=== PATIENT | male | born 1965 | race African-American/Black ===

== ENCOUNTER 2016-06-04 11:40 | Inpatient (IN) | payer BC ==
[~2016-06-04] VITALS: Ht 165.1 cm; Wt 85.9 kg
[~2016-06-04 11:40] MED LIST: ASCO10003 PO; ASPI81TA28 PO; CLOP1TAB15 PO; COCO1CAP PO; COEN1CAP17 PO; GARL400T4 PO; LPT40 PO; MISC1CAP60 PO; MULT-506 PO; OMEG10002 PO; RHOD300C PO; ST J1CAP PO
[2016-06-04] MEDS ORDERED: NITROGLYCERIN 0.4 MG SL PER TAB CHARGE SL STA (12:10)
--- NOTE | 2016-06-04 12:38 | DIAGNOSTIC IMAGING REPORT ---
SINGLE VIEW CHEST CLINICAL HISTORY: Atypical chest pain. FINDINGS: An AP, portable, upright chest radiograph is compared to study dated 06/18/2015. The examination is degraded by portable technique and patient rotation. The cardiomediastinal silhouette is unremarkable. The lungs and pleural spaces are clear. No pneumothorax is seen. The bony thorax is grossly intact. There is S-shaped thoracolumbar scoliosis. IMPRESSION: No active disease in the chest. Electronically signed by: Vargas Vazquez M.D. 06/04/2016 12:36 PM Dictated Date/Time: 06/04/2016 12:36 PM
[2016-06-04] MEDS ORDERED: NITROGLYCERIN OINT 2% 1GM PACKET ONE (13:04)
[2016-06-04 13:05] LABS: BASO % 0.3 %; BASO ABS # 0.02 K/uL (0-0.2); COMPLETE YES; EOS % 1.4 %; HEMATOCRIT 45.2 % (42-52); IG% 0.1 %; LYMPH % 35.7 %; LYMPH ABS # 2.49 K/uL (1.2-3.4); MEAN CORPUSCULAR HEMOGLOBIN 33.2 pg (25-34); MEAN PLATELET VOLUME 10.4 fL (7.4-10.4); MONO % 6.9 %; NEUT % 55.6 %; PLATELET COUNT 199 K/uL (130-400); RED BLOOD COUNT 4.76 M/uL (4.7-6.1); WHITE BLOOD COUNT 6.98 K/uL (4.8-10.8)
[2016-06-04] MEDS ORDERED: NITROGLYCERIN OINT 2% 1GM PACKET EXT ONE (13:15)
[2016-06-04 13:17] LABS: INR 1.1 (0.9-1.1); PARTIAL THROMBOPLASTIN RATIO 0.8; PROTHROMBIN TIME (PATIENT) 11.7 SECONDS (9.0-12.0)
[2016-06-04 13:20] LABS: BUN/CREATININE RATIO 6.5 (10-20); CALCIUM 9.3 mg/dl (8.5-10.1); CREATININE 1.1 mg/dl (0.60-1.40)
[2016-06-04] MEDS ORDERED: ONDANSETRON INJ 2 MG/ML 2 ML VIAL IV PRN (15:00)
[2016-06-04] MEDS ORDERED: IV FLUIDS COMPLETED PRN (15:30)
[2016-06-04 15:31] VITALS: BP 122/87; PULSE 70; TEMP 37; O2SAT 98; Ht 165.1 cm; Wt 85.9 kg
[2016-06-04] MEDS ORDERED: ENOXAPARIN 40 MG/0.4 ML SYR SC SCH (16:00)
--- NOTE | 2016-06-04 17:29 | Medical Student: [facility] ---
Med Student History & Physical Date & Time of Service: Jun 04, 2016 at 17:20 Chief Complaint: Chest Pain, Elevated Blood Pressure Reading Primary Care Physician: Chaitanya Steele M.D. History of Present Illness Source: patient, hospital records Amilcar Bustamante is a 51 male with a history of GA with RCA stent placement in 2012 in [place], [place], and a STEMI with LAD thrombectomy in February 2015 who presented to the ED after he started having lower L chest pressure radiating to his L AC fossa at around noon today while at rest. He also noticed transient lightheadedness lasting for only a few seconds. The pain continued until he came to the ED, then started improving prior to placement of the NTG paste. The pain was 4.75/10 at its worst and is now at about 2/10. There was no associated nausea, diaphoresis, dyspnea, or palpitations. Prior to the onset of the pain he had just woken up and taken his BP, which he noted was slightly higher than normal at 138/94. He then retook his BP and it had slightly increased, so he decided to come to the ED. He had not had any recent chest pain prior to today, and no orthopnea or leg swelling. He lives a very active lifestyle and swam half a mile yesterday with no chest pain. He denies reflux or abdominal pain, but feels as if he needs to belch but can't get it out. He takes his BP multiple times per day and is usually in the 110s-130s/70-90s. He is not currently on any antihypertensives. 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 He watches his diet very closely and in fact switched to a vegan diet a few weeks ago. In addition he lifts weights, does yoga, and swims often, and has not had any chest pain, increased dyspnea, or palpitations. He takes supplements for weight lifting, which include Tribulus terrestris, vitamins, and glutamine. He denies any history of Diabetes. He notes he had a cough and myalgias about two weeks ago, which resolved. Past Medical/Surgical History Echocardiogram from February 2015: * 1. Normal left ventricular size, thickness, and systolic function. LVEF 60%. 2. No significant valvular regurgitation or stenosis. Family History No family history of heart disease. Social History Smoking Status: Former Smoker (Smoked 2 dark and milds per day for 2 years. ) Drug Use: none Occupational Status: employed Allergies Coded Allergies: Prasugrel (Unverified Allergy, Severe, skin blistering and peeling with burning and itching, 06/04/16) Medications Aspirin (Aspirin Ec), 81 MG PO DAILY Clopidogrel (Plavix), 75 MG PO DAILY Review of Systems Constitutional: No chills, No fever Respiratory: + cough (2 weeks ago, resolved), No dyspnea on exertion, No shortness of breath Cardiovascular: + chest pain, No PND, No claudication, No edema, No orthopnea, No palpitations Abdomen: No constipation, No diarrhea, No nausea, No pain, No vomiting Musculoskeletal: No calf pain, No muscle pain, No swelling Endocrine: No fatigue Physical Exam Vital Signs (24 Hours) Date Time Temp Pulse Resp B/P Pulse Ox O2 Delivery O2 Flow Rate FiO2 06/04/16 15:31 37.0 70 14 122/87 98 Room Air 06/04/16 15:01 36.6 62 16 140/98 98 06/04/16 14:22 62 16 140/98 06/04/16 13:54 63 138/87 06/04/16 13:40 57 18 136/96 06/04/16 13:02 65 12 145/96 98 Room Air 06/04/16 12:48 66 06/04/16 12:14 67 18 142/107 06/04/16 12:12 98 Room Air 06/04/16 12:08 98 Room Air 06/04/16 11:45 98 Room Air 06/04/16 11:42 36.6 74 18 166/101 98 Room Air General Appearance: WD/WN, no apparent distress, + pertinent finding (Pt sitting comfortably in bed. ) Head: normocephalic, atraumatic Eyes: normal inspection, PERRL, sclerae normal ENT: hearing grossly normal, pharynx normal Neck: supple, no adenopathy, no JVD, no carotid bruits, trachea midline Respiratory/Chest: chest non-tender, lungs clear, normal breath sounds, no respiratory distress, no accessory muscle use, + pertinent finding (NTG patch in place. 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, no motor/sensory deficits, alert, normal mood/affect, normal reflexes, oriented x 3 Skin: normal color, warm/dry, no rash Lymphatic: no adenopathy Diagnostics Laboratory Results Results Past 24 Hours Test 06/04/16 12:50 06/04/16 12:59 Range/Units White Blood Count 6.98 4.8-10.8 K/uL Red Blood Count 4.76 4.7-6.1 M/uL Hemoglobin 15.8 14.0-18.0 g/dL Hematocrit 45.2 42-52 % Mean Corpuscular Volume 95.0 80-100 fL Mean Corpuscular Hemoglobin 33.2 25-34 pg Mean Corpuscular Hemoglobin Concent 35.0 32-36 g/dl Platelet Count 199 130-400 K/uL Mean Platelet Volume 10.4 7.4-10.4 fL Neutrophils (%) (Auto) 55.6 % Lymphocytes (%) (Auto) 35.7 % Monocytes (%) (Auto) 6.9 % Eosinophils (%) (Auto) 1.4 % Basophils (%) (Auto) 0.3 % Neutrophils # (Auto) 3.88 1.4-6.5 K/uL Lymphocytes # (Auto) 2.49 1.2-3.4 K/uL Monocytes # (Auto) 0.48 0.11-0.59 K/uL Eosinophils # (Auto) 0.10 0-0.5 K/uL Basophils # (Auto) 0.02 0-0.2 K/uL RDW Standard Deviation 45.7 36.4-46.3 fL RDW Coefficient of Variation 13.2 11.5-14.5 % Immature Granulocyte % (Auto) 0.1 % Immature Granulocyte # (Auto) 0.01 0.00-0.02 K/uL Prothrombin Time 11.7 9.0-12.0 SECONDS Prothromb Time International Ratio 1.1 0.9-1.1 Activated Partial Thromboplast Time 21.7 21.0-31.0 SECONDS Partial Thromboplastin Ratio 0.8 Sodium Level 142 136-145 mmol/L Potassium Level 4.0 3.5-5.1 mmol/L Chloride Level 106 98-107 mmol/L Carbon Dioxide Level 25 21-32 mmol/L Anion Gap 11.0 3-11 mmol/L Blood Urea Nitrogen 7 7-18 mg/dl Creatinine 1.10 0.60-1.40 mg/dl Est Creatinine Clear Calc Drug Dose 81.0 ml/min Estimated GFR () 90.9 Estimated GFR (Non- 78.4 BUN/Creatinine Ratio 6.5 10-20 Random Glucose 81 70-99 mg/dl Calcium Level 9.3 8.5-10.1 mg/dl Bedside Troponin I 0.020 0-0.045 ng/ml Diagnostic Radiology SINGLE VIEW CHEST CLINICAL HISTORY: Atypical chest pain. FINDINGS: An AP, portable, upright chest radiograph is compared to study dated 06/18/2015. The examination is degraded by portable technique and patient rotation. The cardiomediastinal silhouette is unremarkable. The lungs and pleural spaces are clear. No pneumothorax is seen. The bony thorax is grossly intact. There is S-shaped thoracolumbar scoliosis. IMPRESSION: No active disease in the chest. EKG Normal sinus rhythm at 71 bpm. Less than [address] elevation in inferior leads with flipped T wave in III and aVF, but no reciprocal changes. No STEMI or Q waves. Normal RI interval with no ectopy. Normal QRS axis and duration. No hypertrophy. Impression Assessment and Plan Pt is a 51 year old male with a history of 2 MIs and an RCA stent who presents with atypical chest pain. EKG shows no evidence of acute STEMI. Initial troponin is negative. VS have been stable, although BP has been slightly elevated here - 140-160s/90-100s, likely secondary to anxiety. CXR shows no acute process. CMP and CBC unremarkable. Differential diagnosis includes ACS, GERD, costochondritis, anxiety secondary to elevated BP. - Will obtain repeat EKG now as well as in the morning. Repeat EKG if he has recurrent pain. - Will continue to trend troponin overnight. If any are positive, will plan for Cardiology consult and likely catheterization. - Will consult cardiology in the morning regardless given the pt's history of stent placement. - NTG SL and morphine prn for pain. - Will continue 2 L O2 NC. - Discussed the importance of taking his statin for plaque stabilization. Will start atorvastatin here. - Pt had ASA and Plavix today, which will be continued daily. - Given that the pt's BP is usually well controlled at baseline and his HR is in the 50-60s at baseline, will not give SHELBY-inhibitor or beta sriram at this time. - Suspicion for cardiac etiology of his pain is low, so will hold heparin at this time. Level of Care Telemetry Advanced Directives Existing Advance Directive: No Existing Living Will: No Existing Power of Labor Delivery Rn: No
--- NOTE | 2016-06-04 17:46 | History and Physical ---
History & Physical Date & Time of Service: Jun 04, 2016 at 17:22 Chief Complaint: Chest Pain, Elevated Blood Pressure Reading Primary Care Physician: Chaitanya Steele M.D. History of Present Illness Source: patient, family, hospital records 51 yo male with a history of CAD with STEMI in the past requiring a LAD thrombectomy in February 2015. Also with a history of BENITEZ to the RCA and in stent thrombosis while on Plavix. Has a history of poor compliance. Presented to the ED today c/o 5 out of 10 substernal chest pain as well as pain in left arm. No associated nausea, diaphoresis, shortness of breath. He did admit to some momentary light headedness but that quickly resolved. The patient woke up without any chest pain. He took his blood pressure like he always does every morning and found that it was high for him at 139/95. He waited a short while and retook the BP and found that it was higher with systolic pressures in the 140's and diastolic 98. After his BP failed to improve he started to experience a substernal pressure similar to pain he had when he had his AL. He says he has been compliant with his Plavix but had not been taking aspirin for a few days, so he took an aspirin when he had the chest pain. He has not been taking his statin for 2 months when prescription ran out. Also, he has not seen Dr. Steele in some time. In the past he took metoprolol and lisinopril for BP control but stopped those on his own. Overall the patient takes excellent care of himself. He lifts weights and swims , in fact he just swam 1/2 a mile yesterday without any chest pain or pressure. He has changed his diet to vegan and follows a strict regimen. In the ED he received a Nitro patch and chest pain nearly resolved. EKG showed sinus rhythm, evidence of prior infarct, there was 1mm of ST elevation in the inferior leads, specifically lead III and some non-specific ST and TW changes in anterior leads. Past Medical/Surgical History Medical Problems: (1) Chest pain Status: Resolved (2) Dehydration Status: Resolved (3) Elevated troponin Status: Resolved (4) Gastric reflux Status: Resolved (5) Hypertension Status: Chronic (6) AL (myocardial infarction) Status: Resolved (7) STEMI (ST elevation myocardial infarction) Status: Resolved Surgical Problems: (1) H/O vasectomy Status: Chronic (2) History of heart artery stent Status: Chronic Family History no family history of CAD Social History Smoking Status: Former Smoker Drug Use: none Marital Status: single Occupational Status: employed Multi-Drug Resistant Organisms History of MDRO: No Allergies Coded Allergies: Prasugrel (Unverified Allergy, Severe, skin blistering and peeling with burning and itching, 06/04/16) Home Medications Scheduled Aspirin (Aspirin Ec), 81 MG PO DAILY Clopidogrel (Plavix), 75 MG PO DAILY Review of Systems Constitutional: No chills, No fatigue, No fever, No problem reported, No sweats , No weakness, No weight loss Eyes: No diplopia, No discharge, No eye pain, No problem reported, No redness, No worsening of vision ENT: No dental problems, No hearing loss, No nasal symptoms, No problem reported, No sore throat, No tinnitus, No trouble swallowing, No unusual epistaxis Respiratory: No cough, No dyspnea at rest, No dyspnea on exertion, No hemoptysis, No problem reported, No shortness of breath, No sputum, No wheezing Cardiovascular: + chest pain, No PND, No claudication, No edema, No orthopnea, No palpitations Abdomen: No GI bleeding, No constipation, No diarrhea, No nausea, No pain, No problem reported, No vomiting Musculoskeletal: No calf pain, No joint pain, No muscle pain, No problem reported, No swelling Genitourinary - Male: No dysuria, No hematuria, No urinary frequency, No urinary urgency Neurologic: No balance problems, No memory loss, No numbness/tingling, No paralysis, No problem reported, No vertigo, No weakness Psychiatric: No anhedonism, No anxiety, No depression symptoms, No insomnia, No problem reported, No substance abuse Endocrine: No excessive thirst, No excessive urination, No fatigue, No problem reported Hematologic / Lymphatic: No abnormal bleeding/bruising, No clotting problems, No night sweats, No problem reported, No swollen lymph nodes Integumentary: No bleeding, No color change, No itch, No new/changing skin lesions, No problem reported, No rash Allergic / Immunologic: No environmental allergies, No food allergies, No frequent infections, No hives, No pet sensitivities, No poor healing, No problem reported, No prolonged convalescence, No seasonal allergies Physical Exam Vital Signs Date Time Temp Pulse Resp B/P Pulse Ox O2 Delivery O2 Flow Rate FiO2 06/04/16 15:31 37.0 70 14 122/87 98 Room Air 06/04/16 15:01 36.6 62 16 140/98 98 06/04/16 14:22 62 16 140/98 06/04/16 13:54 63 138/87 06/04/16 13:40 57 18 136/96 06/04/16 13:02 65 12 145/96 98 Room Air 06/04/16 12:48 66 06/04/16 12:14 67 18 142/107 06/04/16 12:12 98 Room Air 06/04/16 12:08 98 Room Air 06/04/16 11:45 98 Room Air 06/04/16 11:42 36.6 74 18 166/101 98 Room Air General Appearance: WD/WN, no apparent distress Head: normocephalic, atraumatic Eyes: normal inspection, EOMI, sclerae normal ENT: normal ENT inspection, hearing grossly normal, pharynx normal Neck: supple, no adenopathy, no JVD, trachea midline Respiratory/Chest: chest non-tender, lungs clear, normal breath sounds, no respiratory distress, no accessory muscle use Cardiovascular: regular rate, rhythm, no edema, no gallop, no JVD, no murmur, normal peripheral pulses Abdomen/GI: normal bowel sounds, non tender, soft, no organomegaly Back: normal inspection, no CVA tenderness, no muscle spasm, normal range of motion Extremities/Musculoskelatal: normal inspection, no calf tenderness, normal capillary refill, no pedal edema, normal range of motion 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, no motor/sensory deficits, alert, normal mood/affect, normal reflexes, oriented x 3 Skin: normal color, warm/dry, no rash Lymphatic: no adenopathy Diagnostics Laboratory Results Results Past 24 Hours Test 06/04/16 12:50 06/04/16 12:59 Range/Units White Blood Count 6.98 4.8-10.8 K/uL Red Blood Count 4.76 4.7-6.1 M/uL Hemoglobin 15.8 14.0-18.0 g/dL Hematocrit 45.2 42-52 % Mean Corpuscular Volume 95.0 80-100 fL Mean Corpuscular Hemoglobin 33.2 25-34 pg Mean Corpuscular Hemoglobin Concent 35.0 32-36 g/dl Platelet Count 199 130-400 K/uL Mean Platelet Volume 10.4 7.4-10.4 fL Neutrophils (%) (Auto) 55.6 % Lymphocytes (%) (Auto) 35.7 % Monocytes (%) (Auto) 6.9 % Eosinophils (%) (Auto) 1.4 % Basophils (%) (Auto) 0.3 % Neutrophils # (Auto) 3.88 1.4-6.5 K/uL Lymphocytes # (Auto) 2.49 1.2-3.4 K/uL Monocytes # (Auto) 0.48 0.11-0.59 K/uL Eosinophils # (Auto) 0.10 0-0.5 K/uL Basophils # (Auto) 0.02 0-0.2 K/uL RDW Standard Deviation 45.7 36.4-46.3 fL RDW Coefficient of Variation 13.2 11.5-14.5 % Immature Granulocyte % (Auto) 0.1 % Immature Granulocyte # (Auto) 0.01 0.00-0.02 K/uL Prothrombin Time 11.7 9.0-12.0 SECONDS Prothromb Time International Ratio 1.1 0.9-1.1 Activated Partial Thromboplast Time 21.7 21.0-31.0 SECONDS Partial Thromboplastin Ratio 0.8 Sodium Level 142 136-145 mmol/L Potassium Level 4.0 3.5-5.1 mmol/L Chloride Level 106 98-107 mmol/L Carbon Dioxide Level 25 21-32 mmol/L Anion Gap 11.0 3-11 mmol/L Blood Urea Nitrogen 7 7-18 mg/dl Creatinine 1.10 0.60-1.40 mg/dl Est Creatinine Clear Calc Drug Dose 81.0 ml/min Estimated GFR () 90.9 Estimated GFR (Non- 78.4 BUN/Creatinine Ratio 6.5 10-20 Random Glucose 81 70-99 mg/dl Calcium Level 9.3 8.5-10.1 mg/dl Bedside Troponin I 0.020 0-0.045 ng/ml CXR normal EKG sinus rhythm, 1mm of ST elevation in inferior leads, most predominantly lead III , minimal ST depression in anterior leads Impression Assessment and Plan 51 yo male with significant history of CAD with stent to RCA and thrombectomy to LAD, most recently in 2015, presents with chest pain at rest, sudden onset, now greatly improved - Chest pain: need to rule out ACS at this time, EKG changes are non-specific, could be just a repolarization abnormality in inferior leads chest pain is minimal, says it is a 2 out of 10, just swam 1/2 a mile yesterday without any chest pain continue Nitro patch, use Aspirin, Plavix, restart Lipitor 40mg (he stopped 2 months ago) observe on telemetry, repeat cardiac enzymes, consult cardiology for recommendations of stress test vs heart catheterization - Elevated blood pressure: checks pressures every day, multiple times a day, typically 130/90 in the morning and then lower the rest of the day HR is in 50-60's so probably not a great candidate for beta sriram, especially since it limits his exercise routine but with consistently high diastolic pressures, might be a good idea to start an SHELBY inhibitor, will defer to cardiology Level of Care Telemetry Advanced Directives Existing Advance Directive: No Existing Living Will: No Existing Power of Image Scientist: No Resuscitation Status FULL RESUSCITATION VTE Prophylaxis VTE Risk Assessment Done? Y/N: Yes Risk Level: High Given or contraindicated: Enoxaparin (Lovenox)SQ
[2016-06-04] MEDS: NITROGLYCERIN OINT 2% 1GM PACKET EXT SCH (18:32)
--- NOTE | 2016-06-04 18:33 | EMERGENCY ROOM VISIT NOTE ---
History Report prepared by Andrew: Nely Oliva Under the Supervision of: Dr. Garland Lawrence M.D. First contact with patient: 11:57 Chief Complaint: CHEST PAIN Stated Complaint: CHEST PAINS Nursing Triage Summary: Pt states "I was monitoring my blood pressure closely and it went up." States immediately before coming to ED he began having left sided chest pain 4/10 and "a half second of dizziness". Denies SOB, Diaphoresis. History of Present Illness The patient is a 51 year old male who presents to the Emergency Room with complaints of persistent chest pain that began at 12PM today, about an hour ago. His pain is a 4-5/10 in severity and is described as a pressure. Currently , it is starting to improve. The pain is located in the diaphragm area. Nothing seems to make it better nor worse. The pressure radiates down his left arm. The patient notes that he was slightly dizzy when the pain began. His blood pressure has increased from this morning to the time he arrived to the hospital. The patient does exercise - when he was exercising yesterday he did not have any chest discomfort. The patient has a history of a STEMI in 2014 and his current symptoms feel similar to when he was diagnosed. He had a stent placed at that time. He is on aspirin and Plavix. Denies fever, cold-like symptoms, vomiting, abdominal pain, pain or swelling in his legs, or other complaints. Source of History: patient Onset: 11AM, about an hour ago Position: chest (diaphragm) Symptom Intensity: 4-5/10 Quality: pressure Timing: other (persistent) Associated Symptoms: No abdominal pain, No fevers, No vomiting Note: Other symptoms: slight dizziness Review of Systems See HPI for pertinent positives & negatives. A total of 10 systems reviewed and were otherwise negative. Past Medical & Surgical Medical Problems: (1) Chest pain (2) Dehydration (3) Elevated blood pressure reading (4) Elevated troponin (5) Gastric reflux (6) Hypertension (7) KS (myocardial infarction) (8) STEMI (ST elevation myocardial infarction) Surgical Problems: (1) H/O vasectomy (2) History of heart artery stent Family History Patient reports no known family medical history. Social History Smoking Status: Former Smoker Alcohol Use: occasionally Drug Use: none Marital Status: single Housing Status: lives alone Occupation Status: employed Current/Historical Medications Scheduled Aspirin (Aspirin Ec), 81 MG PO DAILY Clopidogrel (Plavix), 75 MG PO DAILY Allergies Coded Allergies: Prasugrel (Unverified Allergy, Severe, skin blistering and peeling with burning and itching, 06/04/16) Physical Exam Vital Signs Date Time Temp Pulse Resp B/P Pulse Ox O2 Delivery O2 Flow Rate FiO2 06/04/16 14:22 62 16 140/98 06/04/16 13:54 63 138/87 06/04/16 13:40 57 18 136/96 06/04/16 13:02 65 12 145/96 98 Room Air 06/04/16 12:48 66 06/04/16 12:14 67 18 142/107 06/04/16 12:12 98 Room Air 06/04/16 12:08 98 Room Air 06/04/16 11:45 98 Room Air 06/04/16 11:42 36.6 74 18 166/101 98 Room Air Physical Exam Constitutional: Vital signs reviewed. Eyes: Pupils are equal round reactive to light. Conjunctiva are noninjected. ENT: Pharynx is clear without erythema or exudate. Mucous membranes are moist. Neck supple without meningeal signs. Respiratory: Clear to auscultation bilaterally. Breath sounds are equal bilaterally. Cardiovascular: Regular rate and rhythm. No rubs or gallops. GI: Soft, nondistended and nontender. Bowel sounds are present. Musculoskeletal: No peripheral edema. No lower extremity tenderness. Integumentary: No cyanosis. Neurological: The patient is awake and alert. No focal deficits. Psychiatric: Normal affect. Medical Decision & Procedures ER Provider Diagnostic Interpretation: X-ray results as stated below per interpretation by me and the radiologist: SINGLE VIEW CHEST CLINICAL HISTORY: Atypical chest pain. FINDINGS: An AP, portable, upright chest radiograph is compared to study dated 06/18/2015. The examination is degraded by portable technique and patient rotation. The cardiomediastinal silhouette is unremarkable. The lungs and pleural spaces are clear. No pneumothorax is seen. The bony thorax is grossly intact. There is S-shaped thoracolumbar scoliosis. IMPRESSION: No active disease in the chest. Electronically signed by: Vargas Vazquez M.D. 06/04/2016 12:36 PM Dictated Date/Time: 06/04/2016 12:36 PM Laboratory Results 06/04/16 12:50 Red Blood Count 4.76, Mean Corpuscular Volume 95.0, Mean Corpuscular Hemoglobin 33.2, Mean Corpuscular Hemoglobin Concent 35.0, Mean Platelet Volume 10.4, Neutrophils (%) (Auto) 55.6, Lymphocytes (%) (Auto) 35.7, Monocytes (%) (Auto) 6.9, Eosinophils (%) (Auto) 1.4, Basophils (%) (Auto) 0.3, Neutrophils # (Auto) 3.88, Lymphocytes # (Auto) 2.49, Monocytes # (Auto) 0.48, Eosinophils # (Auto) 0.10, Basophils # (Auto) 0.02 06/04/16 12:50 Test 06/04/16 12:50 06/04/16 12:59 White Blood Count 6.98 K/uL (4.8-10.8) Red Blood Count 4.76 M/uL (4.7-6.1) Hemoglobin 15.8 g/dL (14.0-18.0) Hematocrit 45.2 % (42-52) Mean Corpuscular Volume 95.0 fL (80-100) Mean Corpuscular Hemoglobin 33.2 pg (25-34) Mean Corpuscular Hemoglobin Concent 35.0 g/dl (32-36) Platelet Count 199 K/uL (130-400) Mean Platelet Volume 10.4 fL (7.4-10.4) Neutrophils (%) (Auto) 55.6 % Lymphocytes (%) (Auto) 35.7 % Monocytes (%) (Auto) 6.9 % Eosinophils (%) (Auto) 1.4 % Basophils (%) (Auto) 0.3 % Neutrophils # (Auto) 3.88 K/uL (1.4-6.5) Lymphocytes # (Auto) 2.49 K/uL (1.2-3.4) Monocytes # (Auto) 0.48 K/uL (0.11-0.59) Eosinophils # (Auto) 0.10 K/uL (0-0.5) Basophils # (Auto) 0.02 K/uL (0-0.2) RDW Standard Deviation 45.7 fL (36.4-46.3) RDW Coefficient of Variation 13.2 % (11.5-14.5) Immature Granulocyte % (Auto) 0.1 % Immature Granulocyte # (Auto) 0.01 K/uL (0.00-0.02) Prothrombin Time 11.7 SECONDS (9.0-12.0) Prothromb Time International Ratio 1.1 (0.9-1.1) Activated Partial Thromboplast Time 21.7 SECONDS (21.0-31.0) Partial Thromboplastin Ratio 0.8 Anion Gap 11.0 mmol/L (3-11) Est Creatinine Clear Calc Drug Dose 81.0 ml/min Estimated GFR () 90.9 Estimated GFR (Non- 78.4 BUN/Creatinine Ratio 6.5 (10-20) Calcium Level 9.3 mg/dl (8.5-10.1) Bedside Troponin I 0.020 ng/ml (0-0.045) Laboratory results as reviewed by me. Medications Administered Medications (Trade) Dose Ordered Sig/Nasim Route Start Time Stop Time Status Last Admin Dose Admin Nitroglycerin (Nitroglycerin 2% Oint) 1 inch STK-MED ONCE .ROUTE 06/04/16 13:04 06/04/16 13:05 DC 06/04/16 13:12 1 INCH ECG Indication: chest pain Rate (beats per minute): 71 Rhythm: normal sinus Findings: Q waves (Inferior), T-wave inversion (V1, V2), no ectopy, other ED Course 1200: The patient was evaluated in room B2. A complete history and physical exam was performed. 1224: The patient informed nursing staff that his pain has gone away completely. 1305: I reassessed the patient. He does not want any nitro paste currently because he is feeling fine; however, he agrees to have the nitro paste if his blood pressure is still elevated. 1330: I reassessed the patient. He currently has no chest discomfort. I discussed hospitalization with him and he agrees with the plan. 1334: I discussed the case with Dr. Haque [place] [facility] [place] The patient will be evaluated for further management. Medical Decision This is a 51-year-old male presents with chest pain similar to his prior STEMI. Differential diagnosis includes acute KS, unstable angina, pleurisy, GERD, pneumonia. I did perform a limited focused review of portions of the patient's old chart on the electronic medical record. He had a STEMI February 2015. I did evaluate the patient as noted above. The patient is presenting with chest discomfort similar to when he had his prior STEMI in 2014. It is intermittent. He was exercising yesterday but did not have any discomfort at that time. Initially the patient stated that he was having some chest discomfort so I ordered nitroglycerin but he stated it resolved spontaneously. He was given nitro paste for hypertension. IV access was established. The patient was placed on a continuous threat monitoring analyst. I did order and personally review the patient's 12-lead EKG and chest x-ray as described above. His 12- lead EKG demonstrates some nonspecific changes including T wave inversions in V1 and V2 as well as some slight downward sloping ST segments in the high lateral leads. No ST elevations. I did order and review the patient's blood work as noted in the electronic medical record. Troponin is negative. I did reassess the patient. I did discuss the test results with him and his family. Given his prior STEMI and his relating that his symptoms feel similar did feel hospitalization and repeat cardiac enzymes are indicated. I did discuss the case with the hospitalist and assistant case manager. Consults Time Called: 1330 Consulting Physician: Dr. Garland Sun [facility] [place] Returned Call: [phone] I discussed the case with him. The patient will be evaluated for further management. Impression Primary Impression: Acute chest pain Additional Impression: Hypertension Scribe Attestation The scribe's documentation has been prepared under my direct and personally reviewed by me in its entirety. I confirm that the note above accurately reflects all work, treatment, procedures, and medical decision making performed by me. Departure Information Dispostion Being Evaluated By Hospitalist Referrals Chaitanya Steele M.D. (PCP) Patient Instructions My [facility] Problem Qualifiers Additional Impression:
[2016-06-04 20:41] VITALS: BP 119/81; PULSE 61; TEMP 36.9; O2SAT 97
[2016-06-04 22:12] LABS: CKMB/CK RATIO 1.7 (0-3.0)
--- NOTE | 2016-06-04 22:32 | Progress Note ---
Progress Note RESIDENT HAND CANDLE DIPPER COVERAGE NOTE - Called for trop elevation, from POC Trop 0.02 to lab trop 1.7 - Reviewed EKGs with Dr Jenkins. Asked for STAT EKG of patient and started heparin with bolus (bolus limited to 5000 units since pt received lovenox 40mg already) - Repeat EKG most similar to EKG of 06/27. EKG completed in ED has slight ST elevation in inferior leads, which was gone in repeat EKG today -?incorrect lead placement in ED EKG Plan EKG Stat if any further chest pain Heparin with bolus (limit bolus to 5000) Cardiology consulted already (Dr Tyler) Resident Tracking Resident Involvement: Abrasive Grinder Coverage Note Care Provided: Adult Hospital Medicine
[2016-06-04] MEDS ORDERED: HEPARIN 25,000 UNIT/500ML D5W 500 ML IV PRN (23:00)
[2016-06-04] MEDS ORDERED: HEPARIN IV BOLUS 5,000 UNIT in SYRINGE 0 ML IV ONE (23:00)
[2016-06-04 23:48] VITALS: BP 129/87; PULSE 63; TEMP 37; O2SAT 97
[2016-06-05] VITALS (10 sets, daily range): BP systolic 103–145; BP diastolic 68–92; PULSE 52–69; TEMP 36.9–37.2; O2SAT 92–98
[2016-06-05] MEDS: NITROGLYCERIN OINT 2% 1GM PACKET EXT SCH ×4 (00:19→18:03)
[2016-06-05 05:15] LABS: BASO % 0.2 %; BASO ABS # 0.02 K/uL (0-0.2); COMPLETE YES; EOS % 1.2 %; HEMATOCRIT 43.1 % (42-52); IG% 0.1 %; LYMPH % 42.5 %; LYMPH ABS # 4.05 K/uL (1.2-3.4); MEAN CELL VOLUME 94.5 fL (80-100); MEAN CORPUSCULAR HEMOGLOBIN 33.8 pg (25-34); MEAN CORPUSCULAR HGB CONC 35.7 g/dl (32-36); MEAN PLATELET VOLUME 9.6 fL (7.4-10.4); MONO % 7.3 %; NEUT % 48.7 %; PLATELET COUNT 222 K/uL (130-400); RED BLOOD COUNT 4.56 M/uL (4.7-6.1); WHITE BLOOD COUNT 9.54 K/uL (4.8-10.8)
[2016-06-05 05:31] LABS: PARTIAL THROMBOPLASTIN RATIO 1.9
[2016-06-05 05:39] LABS: BUN/CREATININE RATIO 7.1 (10-20); CALCIUM 8.8 mg/dl (8.5-10.1); CREATININE 1.1 mg/dl (0.60-1.40); MAGNESIUM 2.1 mg/dl (1.8-2.4); POTASSIUM 4.1 mmol/L (3.5-5.1)
[2016-06-05 05:52] LABS: CKMB/CK RATIO 1.8 (0-3.0)
--- NOTE | 2016-06-05 07:53 | Medical Student: [facility] ---
Med Student Progress Note Date of Service Jun 05, 2016. Subjective Pt evaluation today including: conversation w/ patient, physical exam, chart review, lab review, review of studies Pt is a 51 year old male with a history of 2 MIs and an RCA stent admitted for ACS rule out. He has had no further chest pain overnight, and no dyspnea, palpitations, or leg swelling. No nausea, vomiting, or diarrhea. Review of Systems Constitutional: No fever Respiratory: No cough, No dyspnea on exertion, No shortness of breath Cardiac: No PND, No chest pain, No edema, No orthopnea, No palpitations Abdomen: No constipation, No diarrhea, No nausea, No pain, No vomiting Musculoskeletal: No calf pain All Other Systems: Reviewed and Negative Objective Vital Signs Date Time Temp Pulse Resp B/P Pulse Ox O2 Delivery O2 Flow Rate FiO2 06/05/16 06:09 66 129/84 98 Room Air 06/05/16 04:12 37.0 54 18 129/84 97 Room Air 06/05/16 04:02 Room Air 06/05/16 00:02 Room Air 06/04/16 23:48 37.0 63 18 129/87 97 Room Air 06/04/16 20:41 36.9 61 18 119/81 97 Room Air 06/04/16 20:02 Room Air 06/04/16 15:31 37.0 70 14 122/87 98 Room Air 06/04/16 15:01 36.6 62 16 140/98 98 06/04/16 14:22 62 16 140/98 06/04/16 13:54 63 138/87 06/04/16 13:40 57 18 136/96 06/04/16 13:02 65 12 145/96 98 Room Air 06/04/16 12:48 66 06/04/16 12:14 67 18 142/107 06/04/16 12:12 98 Room Air 06/04/16 12:08 98 Room Air 06/04/16 11:45 98 Room Air 06/04/16 11:42 36.6 74 18 166/101 98 Room Air Physical Exam General Appearance: WD/WN, no apparent distress, + pertinent finding (Pt lying comfortably in bed. ) Eyes: bilateral eyes EOMI, bilateral eyes normal inspection ENT: hearing grossly normal, pharynx normal Neck: supple, no JVD, no carotid bruits Respiratory/Chest: chest non-tender, lungs clear, normal breath sounds, no respiratory distress, no accessory muscle use Cardiovascular: regular rate, rhythm, no edema, no gallop, no JVD, no murmur Abdomen: normal bowel sounds, non tender, soft Extremities: non-tender, normal inspection, no pedal edema, no calf tenderness Neurologic/Psychiatric: registered radiologic technologist II-XII nml as tested, no motor/sensory deficits, alert, normal mood/affect, oriented x 3 Skin: normal color, warm/dry, no rash Laboratory Results Last 24 Hours Test 06/04/16 12:50 06/04/16 12:59 06/04/16 21:15 06/05/16 05:05 White Blood Count 6.98 K/uL 9.54 K/uL Red Blood Count 4.76 M/uL 4.56 M/uL Hemoglobin 15.8 g/dL 15.4 g/dL Hematocrit 45.2 % 43.1 % Mean Corpuscular Volume 95.0 fL 94.5 fL Mean Corpuscular Hemoglobin 33.2 pg 33.8 pg Mean Corpuscular Hemoglobin Concent 35.0 g/dl 35.7 g/dl Platelet Count 199 K/uL 222 K/uL Mean Platelet Volume 10.4 fL 9.6 fL Neutrophils (%) (Auto) 55.6 % 48.7 % Lymphocytes (%) (Auto) 35.7 % 42.5 % Monocytes (%) (Auto) 6.9 % 7.3 % Eosinophils (%) (Auto) 1.4 % 1.2 % Basophils (%) (Auto) 0.3 % 0.2 % Neutrophils # (Auto) 3.88 K/uL 4.65 K/uL Lymphocytes # (Auto) 2.49 K/uL 4.05 K/uL Monocytes # (Auto) 0.48 K/uL 0.70 K/uL Eosinophils # (Auto) 0.10 K/uL 0.11 K/uL Basophils # (Auto) 0.02 K/uL 0.02 K/uL RDW Standard Deviation 45.7 fL 45.2 fL RDW Coefficient of Variation 13.2 % 13.0 % Immature Granulocyte % (Auto) 0.1 % 0.1 % Immature Granulocyte # (Auto) 0.01 K/uL 0.01 K/uL Prothrombin Time 11.7 SECONDS Prothromb Time International Ratio 1.1 Activated Partial Thromboplast Time 21.7 SECONDS 49.5 SECONDS Partial Thromboplastin Ratio 0.8 1.9 Sodium Level 142 mmol/L 143 mmol/L Potassium Level 4.0 mmol/L 4.1 mmol/L Chloride Level 106 mmol/L 106 mmol/L Carbon Dioxide Level 25 mmol/L 31 mmol/L Anion Gap 11.0 mmol/L 6.0 mmol/L Blood Urea Nitrogen 7 mg/dl 8 mg/dl Creatinine 1.10 mg/dl 1.10 mg/dl Est Creatinine Clear Calc Drug Dose 81.0 ml/min 81.0 ml/min Estimated GFR () 90.9 90.9 Estimated GFR (Non- 78.4 78.4 BUN/Creatinine Ratio 6.5 7.1 Random Glucose 81 mg/dl 87 mg/dl Calcium Level 9.3 mg/dl 8.8 mg/dl Bedside Troponin I 0.020 ng/ml Total Creatine Kinase 445 U/L 357 U/L Creatine Kinase MB 7.7 ng/ml 6.3 ng/ml Creatine Kinase MB Ratio 1.7 1.8 Troponin I 1.700 ng/ml 1.920 ng/ml Magnesium Level 2.1 mg/dl Medications Medications Administered Medications (Trade) Dose Ordered Sig/Nasim Route Start Time Stop Time Status Last Admin Dose Admin Nitroglycerin (Nitroglycerin 2% Oint) 1 inch STK-MED ONCE .ROUTE 06/04/16 13:04 06/04/16 13:05 DC 06/04/16 13:12 1 INCH Enoxaparin Sodium (Lovenox Inj) 40 mg Q24H SC 06/04/16 16:00 06/04/16 22:30 DC 06/04/16 16:47 40 MG Nitroglycerin 1 inch 1 inch Q6H EXT 06/04/16 18:00 07/04/16 17:59 06/05/16 06:13 1 INCH Heparin Sodium/ Dextrose 500 ml @ 25 mls/hr Q20H PRN IV 06/04/16 23:00 07/04/16 22:59 06/04/16 23:08 25 MLS/HR Heparin Sodium (Porcine)/Syringe (Heparin Iv Bolus/Syringe) 5 ml @ 10 mls/min NOW ONCE IV 06/04/16 23:00 06/04/16 23:01 DC 06/04/16 23:07 10 MLS/MIN Assessment and Plan Assessment and Plan: Pt is a 51 year old male with a history of 2 MIs and an RCA stent who presents with atypical chest pain. Initial EKG yesterday showed no evidence of acute STEMI, but with minimal ST elevation in inferior leads. Initial troponin was negative. His second troponin last night was elevated at 1.7 and third was 1.92 , consistent with NSTEMI, so he received heparin. Repeat EKGs last night and this morning still with no STEMI and the minimal ST elevations have in fact improved. Pt has been hemodynamically stable with no further chest pain. - Cardiology has been consulted. Plan is for cardiac catheterization later today. - Continue heparin drip. - NTG SL and morphine prn for pain. - Will continue 2 L O2 NC. - Discussed the importance of taking his statin for plaque stabilization. Will start atorvastatin here. - Continue ASA and Plavix. - Given that the pt's HR is in the 50-60s at baseline, will not give beta sriram. - BP is usually well controlled, although diastolic pressure has been slightly elevated at time, usually in the 90s per pt. Will plan to add an SHELBY- inhibitor to prevent cardiac remodeling.
[2016-06-05] MEDS ORDERED: CLOPIDOGREL BISULFATE 75 MG TAB PO SCH (09:00)
[2016-06-05] MEDS: ATORVASTATIN 40 MG TAB PO SCH (11:36)
[2016-06-05] MEDS: ASPIRIN 81 MG ECTAB PO SCH (11:36)
--- NOTE | 2016-06-05 12:37 | Cardiology Consultation ---
Cardiology Consultation Date of Consultation: Jun 05, 2016. Reason for Consultation: [place] Pt evaluation today including: conversation w/ patient, physical exam, chart review, lab review History of Present Illness This is a 51 y/o male with hx of HTN, STEMI s/p 2 stents on 04/05/2013 and LAD thrombectomy in Feb 2015 presented to the ED complaining of substernal chest pain/tightness. He describes it as "tightness and pressure", lasted for few minutes, and radiates to his left arm. Associated symptoms includes dizziness, which resolved quickly. Per patient he was resting when he experience the chest discomfort. He thinks the chest pain is similar to the pain when he had WY last time. He also checked his blood pressure, which was high with systolic in 140s and diastolic in late 90s. He checks his BP 3X/day and it's usually in 130s/ 90s. Denies diaphoresis, palpitation, SOB, nausea, vomiting, headache, or any other additional symptoms. Patient states that prior to this event he was in good health and didn't have chest pain or SOB. He is very active. He swims and lifts weights. He usually walks about 2-3 miles everyday. Today he denies any chest pain or tightness. Denies SOB, palpitation, diaphoresis, nausea, vomiting, abdominal pain, melena, hematochezia, or any other additional symptoms. Patient states that he was on metoprolol and lisinopril but it was discontinued last year March. Currently he was taking ASA and Plavix at home. He is a former smoker, quit 1 yr ago. Smoked 2 cigars 5 days/wk for 2 years. Social drinker. No FHx of heart disease. Family History Patient reports no known family medical history. Social History Smoking Status: Former Smoker History of Alcohol Use: Yes (wine occasional) Review of Systems Constitutional: No chills, No fever Respiratory: No cough, No dyspnea on exertion, No shortness of breath Cardiac: No PND, No chest pain, No edema, No orthopnea Abdomen: No constipation, No diarrhea, No nausea, No pain, No vomiting Male : No dysuria Skin: No rash Allergies Coded Allergies: Prasugrel (Unverified Allergy, Severe, skin blistering and peeling with burning and itching, 06/06/16) PER ORDRIGUE'S NOTE HE TOLERATES PLAVIX Medications Current Inpatient Medications Medications (Trade) Dose Ordered Sig/Nasim Route Start Time Stop Time Status Last Admin Dose Admin Acetaminophen (Tylenol Tab) 650 mg Q4H PRN PO 06/04/16 15:00 07/04/16 14:59 Ondansetron HCl (Zofran Inj) 4 mg Q6H PRN IV 06/04/16 15:00 07/04/16 14:59 Nitroglycerin (Nitroglycerin 2% Oint) 1 inch Q6H EXT 06/04/16 18:00 07/04/16 17:59 06/05/16 06:13 1 INCH Aspirin (Ecotrin Tab) 81 mg DAILY PO 06/05/16 09:00 07/05/16 08:59 06/05/16 11:36 81 MG Clopidogrel Bisulfate (plAVix TAB) 75 mg DAILY PO 06/05/16 09:00 07/05/16 08:59 06/05/16 11:36 75 MG Atorvastatin Calcium (Lipitor Tab) 40 mg QAM PO 06/05/16 09:00 07/05/16 08:59 06/05/16 11:36 40 MG Miscellaneous 1 ea 1 ea PRN PRN N/A 06/04/16 15:30 06/04/17 15:29 Heparin Sodium/ Dextrose (Heparin 25,000 Unit/500ml D5W) 500 ml @ 25 mls/hr Q20H PRN IV 06/04/16 23:00 07/04/16 22:59 06/04/16 23:08 25 MLS/HR Lisinopril (Zestril Tab) 2.5 mg QAM PO 06/06/16 09:00 07/06/16 08:59 UNV Physical Exam Vital Signs Past 12 Hours Date Time Temp Pulse Resp B/P Pulse Ox O2 Delivery O2 Flow Rate FiO2 06/05/16 10:55 37.0 58 17 145/89 98 Room Air 06/05/16 08:00 Room Air 06/05/16 07:31 37.2 58 20 132/92 98 Room Air 06/05/16 06:09 66 129/84 98 Room Air 06/05/16 04:12 37.0 54 18 129/84 97 Room Air 06/05/16 04:02 Room Air 06/05/16 00:02 Room Air Head: normocephalic, atraumatic Neck: supple, trachea midline Lungs: Respiratory effort: no dyspnea, good air movement Auscultation: breath sounds normal, no wheezing, no rales/crackles Cardiovascular: Apical Impulse: not displaced Heart Auscultation: RRR, normal S1, normal S2, no murmurs Peripheral Pulses: Bruits: none appreciated Radial Pulse: normal on the left, normal on the right Dorsalis Pedis Pulse: normal on the left, normal on the right Abdomen: Bowel Sounds: normal Inspection & Palpation: soft, non-distended Extremities: no edema Data Laboratory Results: Last 24 Hours Test 06/04/16 12:50 06/04/16 12:59 06/04/16 21:15 06/05/16 05:05 White Blood Count 6.98 K/uL 9.54 K/uL Red Blood Count 4.76 M/uL 4.56 M/uL Hemoglobin 15.8 g/dL 15.4 g/dL Hematocrit 45.2 % 43.1 % Mean Corpuscular Volume 95.0 fL 94.5 fL Mean Corpuscular Hemoglobin 33.2 pg 33.8 pg Mean Corpuscular Hemoglobin Concent 35.0 g/dl 35.7 g/dl Platelet Count 199 K/uL 222 K/uL Mean Platelet Volume 10.4 fL 9.6 fL Neutrophils (%) (Auto) 55.6 % 48.7 % Lymphocytes (%) (Auto) 35.7 % 42.5 % Monocytes (%) (Auto) 6.9 % 7.3 % Eosinophils (%) (Auto) 1.4 % 1.2 % Basophils (%) (Auto) 0.3 % 0.2 % Neutrophils # (Auto) 3.88 K/uL 4.65 K/uL Lymphocytes # (Auto) 2.49 K/uL 4.05 K/uL Monocytes # (Auto) 0.48 K/uL 0.70 K/uL Eosinophils # (Auto) 0.10 K/uL 0.11 K/uL Basophils # (Auto) 0.02 K/uL 0.02 K/uL RDW Standard Deviation 45.7 fL 45.2 fL RDW Coefficient of Variation 13.2 % 13.0 % Immature Granulocyte % (Auto) 0.1 % 0.1 % Immature Granulocyte # (Auto) 0.01 K/uL 0.01 K/uL Prothrombin Time 11.7 SECONDS Prothromb Time International Ratio 1.1 Activated Partial Thromboplast Time 21.7 SECONDS 49.5 SECONDS Partial Thromboplastin Ratio 0.8 1.9 Sodium Level 142 mmol/L 143 mmol/L Potassium Level 4.0 mmol/L 4.1 mmol/L Chloride Level 106 mmol/L 106 mmol/L Carbon Dioxide Level 25 mmol/L 31 mmol/L Anion Gap 11.0 mmol/L 6.0 mmol/L Blood Urea Nitrogen 7 mg/dl 8 mg/dl Creatinine 1.10 mg/dl 1.10 mg/dl Est Creatinine Clear Calc Drug Dose 81.0 ml/min 81.0 ml/min Estimated GFR () 90.9 90.9 Estimated GFR (Non- 78.4 78.4 BUN/Creatinine Ratio 6.5 7.1 Random Glucose 81 mg/dl 87 mg/dl Calcium Level 9.3 mg/dl 8.8 mg/dl Bedside Troponin I 0.020 ng/ml Total Creatine Kinase 445 U/L 357 U/L Creatine Kinase MB 7.7 ng/ml 6.3 ng/ml Creatine Kinase MB Ratio 1.7 1.8 Troponin I 1.700 ng/ml 1.920 ng/ml Magnesium Level 2.1 mg/dl Imaging: EKG: Telemetry reviewed: Assessment & Plan This is a 51 y/o male with hx of STEMI s/p 2 stents in 2012 and LAD thrombectomy in 2014 presented to the ED with chest pain. 1. Chest pain - Patient had [place] given elevated troponin level (1.9). Given recent [place], symptoms precipitated at rest and past hx of STEMI and blockage of stent, patient is a good candidate for cath. Cath will be performed today. Patient is currently on heparin drip. - Echo was ordered - Continue ASA, Plavix, and Lipitor 40mg. Can't start him on BB given heart rates in 50s. - Continue to monitor him tele. 2. HTN - Patient current blood pressure is 132/92 - Will start him on low dose of lisinopril (2.5mg) - Continue to monitor his blood pressure. CARDIOLOGY ATTENDING ADDENDUM: See my consultation note for full details.
[2016-06-05] MEDS ORDERED: NITROGLYCERIN/D5W 100MCG/ML 20ML SYR ONE (13:21)
[2016-06-05] MEDS ORDERED: NiCARDipine HCL INJ 2.5 MG/ML 10 ML AMP ONE (13:21)
[2016-06-05] MEDS ORDERED: FENTANYL CITRATE INJ 50 MCG/1 ML 2 ML VIAL ONE ×2 (13:21→15:53)
[2016-06-05] MEDS ORDERED: HEPARIN SOD (PORCINE) 1000 UNIT/ML 10 ML VIAL ONE (13:21)
[2016-06-05] MEDS ORDERED: MIDAZOLAM HCL 1 MG/ML 2ML VIAL ONE ×2 (13:21→14:18)
--- NOTE | 2016-06-05 13:31 | Procedure Note ---
Pre-Mod Sedation Assessment General Date of Moderate Sedation: Jun 05, 2016. Vital Signs: Vital Signs Past 12 Hours Date Time Temp Pulse Resp B/P Pulse Ox O2 Delivery O2 Flow Rate FiO2 06/05/16 12:00 Room Air 06/05/16 10:55 37.0 58 17 145/89 98 Room Air 06/05/16 08:00 Room Air 06/05/16 07:31 37.2 58 20 132/92 98 Room Air 06/05/16 06:09 66 129/84 98 Room Air 06/05/16 04:12 37.0 54 18 129/84 97 Room Air 06/05/16 04:02 Room Air Review Cardiovascular: regular rate, rhythm Abdomen: normal bowel sounds, non tender, soft Lungs: lungs clear Pre-Sedation Airway Assessment Oral Cavity: WNL Smoking Status: Former Smoker Procedure Planning Contraindications-for Mod Sed: None Yes Notes The planned sedation has been discussed with the patient and consent obtained. I have identified the patient, determined the appropriateness of sedation and have assessed the patient immediately prior to the procedure. All medicine(s) and interventions are by my order.
--- NOTE | 2016-06-05 13:48 | Family Medicine Progress Note ---
Progress Note Date of Service Jun 05, 2016. Subjective Pt evaluation today including: conversation w/ patient, conversation w/ family , physical exam, chart review, lab review Patient standing in room pacing. He says his chest pain from yesterday has completely resolved. He is currently feeling a discomfort associated with anxiety. He denies dyspnea or diaphoresis. He denies nausea, or abdominal pain. He was pacing the room prior to my arrival and currently in a tense stance. He denies issues with ambulation and syncope or presyncopal episodes. Constitutional: No chills, No fever Respiratory: No cough, No shortness of breath Cardiovascular: No PND, No chest pain, No edema, No orthopnea, No palpitations Abdomen: No GI bleeding, No constipation, No diarrhea, No nausea, No pain, No vomiting Male : No dysuria Psychiatric: + anxiety Skin: No rash Medications Medications Administered Medications (Trade) Dose Ordered Sig/Nasim Route Start Time Stop Time Status Last Admin Dose Admin Nitroglycerin (Nitroglycerin 2% Oint) 1 inch STK-MED ONCE .ROUTE 06/04/16 13:04 06/04/16 13:05 DC 06/04/16 13:12 1 INCH Enoxaparin Sodium (Lovenox Inj) 40 mg Q24H SC 06/04/16 16:00 06/04/16 22:30 DC 06/04/16 16:47 40 MG Nitroglycerin (Nitroglycerin 2% Oint) 1 inch Q6H EXT 06/04/16 18:00 07/04/16 17:59 06/05/16 18:03 1 INCH Aspirin (Ecotrin Tab) 81 mg DAILY PO 06/05/16 09:00 07/05/16 08:59 06/05/16 11:36 81 MG Clopidogrel Bisulfate (plAVix TAB) 75 mg DAILY PO 06/05/16 09:00 06/05/16 16:19 DC 06/05/16 11:36 75 MG Atorvastatin Calcium 40 mg 40 mg QAM PO 06/05/16 09:00 07/05/16 08:59 06/05/16 11:36 40 MG Heparin Sodium/ Dextrose 500 ml @ 25 mls/hr Q20H PRN IV 06/04/16 23:00 06/05/16 16:19 DC 06/04/16 23:08 25 MLS/HR Heparin Sodium (Porcine)/Syringe (Heparin Iv Bolus/Syringe) 5 ml @ 10 mls/min NOW ONCE IV 06/04/16 23:00 06/04/16 23:01 DC 06/04/16 23:07 10 MLS/MIN Heparin Sodium (Porcine) (Heparin Iv Bolus) 10,000 unit STK-MED ONCE .ROUTE 06/05/16 13:21 06/05/16 13:23 DC 06/05/16 13:21 6,000 UNIT Fentanyl Citrate (Fentanyl Inj) 100 mcg STK-MED ONCE .ROUTE 06/05/16 13:21 06/05/16 13:23 DC 06/05/16 13:21 100 MCG Midazolam HCl (Versed Inj) 2 mg STK-MED ONCE .ROUTE 06/05/16 13:21 06/05/16 13:23 DC 06/05/16 13:21 2 MG Midazolam HCl (Versed Inj) 2 mg STK-MED ONCE .ROUTE 06/05/16 14:18 06/05/16 14:19 DC 06/05/16 14:18 1 MG Fentanyl Citrate (Fentanyl Inj) 100 mcg STK-MED ONCE .ROUTE 06/05/16 15:53 06/05/16 15:55 DC 06/05/16 15:53 50 MCG Ticagrelor 180 mg 180 mg STK-MED ONCE PO 06/05/16 15:53 06/05/16 15:55 DC 06/05/16 15:57 180 MG Sodium Chloride 1,000 ml @ 75 mls/hr [id number] IV 06/05/16 16:15 07/05/16 16:14 06/05/16 18:03 75 MLS/HR Eptifibatide (Integrilin Inj) 100 ml @ 13 mls/hr [id number] IV 06/05/16 17:00 06/07/16 08:00 06/05/16 20:18 13 MLS/HR Objective Vital Signs Date Time Temp Pulse Resp B/P Pulse Ox O2 Delivery O2 Flow Rate FiO2 06/05/16 20:04 Room Air 06/05/16 19:55 36.9 57 18 120/68 97 Room Air 06/05/16 18:15 36.9 60 18 103/75 96 Room Air 06/05/16 17:45 36.9 60 18 120/86 96 Room Air 06/05/16 17:30 36.9 69 18 120/88 96 Room Air 06/05/16 17:15 36.9 52 18 130/79 96 Room Air 06/05/16 17:00 36.9 54 18 121/85 98 Room Air 06/05/16 16:54 Room Air 06/05/16 16:00 65 18 115/63 94 Room Air 06/05/16 15:45 63 18 123/80 94 Room Air 06/05/16 12:00 Room Air 06/05/16 10:55 37.0 58 17 145/89 98 Room Air 06/05/16 08:00 Room Air 06/05/16 07:31 37.2 58 20 132/92 98 Room Air 06/05/16 06:09 66 129/84 98 Room Air 06/05/16 04:12 37.0 54 18 129/84 97 Room Air 06/05/16 04:02 Room Air 06/05/16 00:02 Room Air 06/04/16 23:48 37.0 63 18 129/87 97 Room Air Physical Exam General Appearance: WD/WN, no apparent distress Neck: supple, no adenopathy, no JVD Respiratory/Chest: chest non-tender, lungs clear, normal breath sounds, no respiratory distress Cardiovascular: regular rate, rhythm, no edema, no murmur Abdomen: normal bowel sounds, non tender, soft Extremities: no pedal edema, no calf tenderness Neurologic/Psychiatric: alert, oriented x 3, + depressed affect Skin: normal color, warm/dry, no rash Laboratory Results Results Past 24 Hours Test 06/05/16 05:05 06/05/16 13:43 06/05/16 14:00 06/05/16 14:18 Range/Units White Blood Count 9.54 4.8-10.8 K/uL Red Blood Count 4.56 4.7-6.1 M/uL Hemoglobin 15.4 14.0-18.0 g/dL Hematocrit 43.1 42-52 % Mean Corpuscular Volume 94.5 80-100 fL Mean Corpuscular Hemoglobin 33.8 25-34 pg Mean Corpuscular Hemoglobin Concent 35.7 32-36 g/dl Platelet Count 222 130-400 K/uL Mean Platelet Volume 9.6 7.4-10.4 fL Neutrophils (%) (Auto) 48.7 % Lymphocytes (%) (Auto) 42.5 % Monocytes (%) (Auto) 7.3 % Eosinophils (%) (Auto) 1.2 % Basophils (%) (Auto) 0.2 % Neutrophils # (Auto) 4.65 1.4-6.5 K/uL Lymphocytes # (Auto) 4.05 1.2-3.4 K/uL Monocytes # (Auto) 0.70 0.11-0.59 K/uL Eosinophils # (Auto) 0.11 0-0.5 K/uL Basophils # (Auto) 0.02 0-0.2 K/uL RDW Standard Deviation 45.2 36.4-46.3 fL RDW Coefficient of Variation 13.0 11.5-14.5 % Immature Granulocyte % (Auto) 0.1 % Immature Granulocyte # (Auto) 0.01 0.00-0.02 K/uL Activated Partial Thromboplast Time 49.5 21.0-31.0 SECONDS Partial Thromboplastin Ratio 1.9 Sodium Level 143 136-145 mmol/L Potassium Level 4.1 3.5-5.1 mmol/L Chloride Level 106 98-107 mmol/L Carbon Dioxide Level 31 21-32 mmol/L Anion Gap 6.0 3-11 mmol/L Blood Urea Nitrogen 8 7-18 mg/dl Creatinine 1.10 0.60-1.40 mg/dl Est Creatinine Clear Calc Drug Dose 81.0 ml/min Estimated GFR () 90.9 Estimated GFR (Non- 78.4 BUN/Creatinine Ratio 7.1 10-20 Random Glucose 87 70-99 mg/dl Calcium Level 8.8 8.5-10.1 mg/dl Magnesium Level 2.1 1.8-2.4 mg/dl Total Creatine Kinase 357 39-308 U/L Creatine Kinase MB 6.3 0.5-3.6 ng/ml Creatine Kinase MB Ratio 1.8 0-3.0 Troponin I 1.920 0-0.045 ng/ml Kaolin Activated Coagulation Time 147 178 260 94-140 SECONDS Test 06/05/16 15:00 06/05/16 15:36 06/05/16 16:32 Range/Units Kaolin Activated Coagulation Time 224 260 94-140 SECONDS White Blood Count 9.17 4.8-10.8 K/uL Red Blood Count 4.55 4.7-6.1 M/uL Hemoglobin 15.6 14.0-18.0 g/dL Hematocrit 42.7 42-52 % Mean Corpuscular Volume 93.8 80-100 fL Mean Corpuscular Hemoglobin 34.3 25-34 pg Mean Corpuscular Hemoglobin Concent 36.5 32-36 g/dl Platelet Count 186 130-400 K/uL Mean Platelet Volume 10.6 7.4-10.4 fL Neutrophils (%) (Auto) 57.4 % Lymphocytes (%) (Auto) 33.6 % Monocytes (%) (Auto) 7.3 % Eosinophils (%) (Auto) 0.8 % Basophils (%) (Auto) 0.5 % Neutrophils # (Auto) 5.26 1.4-6.5 K/uL Lymphocytes # (Auto) 3.08 1.2-3.4 K/uL Monocytes # (Auto) 0.67 0.11-0.59 K/uL Eosinophils # (Auto) 0.07 0-0.5 K/uL Basophils # (Auto) 0.05 0-0.2 K/uL RDW Standard Deviation 44.8 36.4-46.3 fL RDW Coefficient of Variation 13.1 11.5-14.5 % Immature Granulocyte % (Auto) 0.4 % Immature Granulocyte # (Auto) 0.04 0.00-0.02 K/uL Assessment and Plan 51 year old male presents to ED with atypical chest pain and elevated troponin indicative of NSTEMI on a background of CAD s/p RCA PCI x2 (2012) as well as mid LAD STEMI followed by aspiration thrombectomy (2014). Underwent PCI. NSTEMI - Presented with atypical chest pain - EKG showed sinus rhythm with inferior Q-waves suggesting prior infarct. There were minor ST elevations in the inferior leads, once again with Q-waves present. - Troponin trended: 0.02 --> 1.70 --> 1.92 - Patient started on a heparin drip per protocol. - Cardio consulted. Recommend continuing aspirin and Plavix as well as heparin drip per protocol. Recommend low dose lisinopril. Continue statin therapy, Atorvastatin 80mg daily given his history. Avoid b-sriram given bradycardia. - Cardiac cath performed 06/05 showin. Severe CAD and thrombus formation within the distal RCA, including proximal distal RCA stent. 2. Nonobstructive CAD within mid LAD and proximal to mid RCA stent. 3. Normal LVEDP. 4. No aortic stenosis. - PCI was deployed in the RCA and patient was given a loading dose of 180 milligrams of Ticagrelor post PC with IV Integrilin x at least 24 hours and plans for postprocedure EKGs, and cardiac enzymes. HTN - Patient started on low dose Lisinopril 2.5 mg - May need to titrate DVT prophylaxis - Heparin Dispo - Full code - Telemetry Resident Physician Supervision Note: I interviewed and examined the patient. Discussed with Dr. De La Cruz and agree with findings and plan as documented in the note. Any exceptions or clarifications are listed here: None Documented By: Kiko Mota feeling ok now - no chest pain. EKGs noted, troponins noted. d/w cardiology. for LH. pt understands noted to have excellent lifestyle but poor med adherence. will have to d/w him further regarding data on secondary risk reduction. vitals noted, nad, breathing unlabored, walking in room, nad NQMI - for [facility]. med management. otherwise as above Continued [facility] stay due to: multiple IV medications needed
--- NOTE | 2016-06-05 14:25 | Procedure Note ---
Post-Mod Sedation Assessment General Date of Moderate Sedation Jun 05, 2016. Vital Signs: Vital Signs Past 12 Hours Date Time Temp Pulse Resp B/P Pulse Ox O2 Delivery O2 Flow Rate FiO2 06/05/16 12:00 Room Air 06/05/16 10:55 37.0 58 17 145/89 98 Room Air 06/05/16 08:00 Room Air 06/05/16 07:31 37.2 58 20 132/92 98 Room Air 06/05/16 06:09 66 129/84 98 Room Air 06/05/16 04:12 37.0 54 18 129/84 97 Room Air 06/05/16 04:02 Room Air Review - Discharge Criteria Vital Signs Stable: Yes Alert/Oriented/Conversant: Yes Returned to Baseline Mental St: No (still sedated while awaiting PCI) Nausea Absent/Minimal: Yes Pain/Discomfort/Absent/Minimal: Yes Normal/Baseline Respirations: Yes Active Bleeding?: No
--- NOTE | 2016-06-05 14:47 | Cardiac Catheterization ---
Procedure Note Procedure Date Jun 05, 2016. Pre-Procedure Diagnosis Non STEMI, Acute Coronary Syndrome, CAD AUC Score 9 Post-Procedure Diagnosis Severe CAD Procedure(s) Performed Coronary Angiography, Left Heart Cath Sales Performance Manager Dr. Wong Abstract Writer(s) Cas Estimated Blood Loss < 20 ml Medication(s) Fentanyl, Heparin, Nicardipine, Versed, Lidocaine 1% Summary of Findings Coronary angiography: 1. Left main coronary artery: The LMCA is without angiographic evidence of significant CAD. 2. Left anterior descending: The LAD is large in caliber and wraps around the apex. Mid LAD 40% stenosis with a small aneurysmal segment. Medium caliber D1 , small caliber D2 and small caliber D3 without angiographic evidence of CAD. 3. Circumflex: The circumflex is very large in caliber. It gives rise to OM1, OM2, OM3 vessels. No angiographic evidence of CAD within the circumflex system. 4. Right coronary artery: The RCA is large and dominant. Proximal to mid RCA stent 40% in-stent restenosis. Distal RCA stent 70% in-stent restenosis in the proximal portion. Just proximal to the distal RCA stent there is opacification suggestive of thrombus (90-95%) with AMISHA 3 flow. PDA without significant angiographic evidence of CAD. No significant posterior lateral branch. Left heart catheterization: 1. No left ventriculography was performed as patient had echo earlier today. 2. Normal LVEDP; 12 mmHg. 3. No aortic stenosis. Peak to peak gradient across the aortic valve was 0 mmHg. Procedural notes: 1. Coronary angiography was performed via the right radial artery with a slender sheath. Six [place]awk diagnostic catheters were used to selectively engage that LM CA and RCA (JL 3.5 and JR4, respectively). 2. [facility] in [place], [place] was contacted regarding prior stents. Prox to mid RCA 4.5 x 18 mm BMS postdilated with 4.5 NC balloon. Distal RCA 2.5 x 18 mm Integrity BENITEZ post dilated with stent balloon at 16 kyree. Impression: 1. Severe CAD and thrombus formation within the distal RCA, including proximal distal RCA stent. 2. Nonobstructive CAD within mid LAD and proximal to mid RCA stent. 3. Normal LVEDP. 4. No aortic stenosis. Plan: 1. Interventional Cardiology was asked to review images and consider PCI of this area. 2. Continue with risk factor modification and anti-platelet therapy. Hemodynamics Rest Ao: 110/77 Final Ao: 117/84 LV: 123/3 with LVEDP 12 mmHg Recommendations PCI without planned CABG Specimens None Radiation Exposure (mGy) 420 mGy. Fluoro time 2.7 min. Contrast (mls) 85 ml Procedural Complication(s) None Disposition Remained in cardiovascular lab director for PCI. ACC Data Cardiac Status Clinical evaluation leading to the procedure CAD Presntation: Unstable angina, Non STEMI Anginal Classification: CCS IV Heart Failure: No Cardiogenic Shock w/in 24Hrs: No Cardiac Arrest w/in 24Hrs: No Imaging studies past 6 months: Yes (echo) Stress studies past 6 months: No Standard Exercise Stress Test: No Stress Echocardiogram: No Stress Testing w/SPECT MPI: No Cardiac CTA: No Coronary Anatomy Dominant: Right Left Main (% Stenosis): Normal LAD (% Stenosis): Mid (40%) D1 (% Stenosis): Normal D2 (% Stenosis): Normal D3 (% Stenosis): Normal Circumflex (% Stenosis): Normal OM1 (% Stenosis): Normal OM2 (% Stenosis): Normal OM3 (% Stenosis): Normal RCA (% Stenosis): Proximal (prox to mid RCA instent 40%), Distal (90-95% with thrombus just proximal to distal RCA stent. Prox instent 70%) R PDA (% Stenosis): Normal Left Ventricular Angiography EF (%): n/a Diagnostic Physician's Name: Leobardo Wong MD Status: Elective Closure Device Percutaneous Entry Location: Radial Closure Device: Radial Band (following PCI) Recommendations: PCI without planned CABG PCI Indication: PCI for high risk Non-STEMI
[2016-06-05] MEDS ORDERED: TICAGRELOR 90 MG TAB PO ONE (15:53)
--- NOTE | 2016-06-05 16:03 | CARDIOLOGY CONSULTATION ---
DATE OF CONSULTATION: 06/05/2016 DATE OF CONSULTATION: 06/05/2016. CONSULTING PHYSICIAN: Dr. Haque. REASON FOR CONSULTATION: Chest pain, history of CAD and STEMI. PRIMARY REPAIR SERVICE CLERK: Dr. Chaitanya Steele. HISTORY OF PRESENT ILLNESS: Mr. Bustamante is a pleasant 51-year-old gentleman with a history significant for CAD status post RCA PCI x2 as well as mid LAD STEMI followed by aspiration thrombectomy, who presented to [facility] on 06/04/2016 with unstable angina and found to have non-ST elevation myocardial infarction. He was last hospitalized for cardiac issues in February of 2015 when he presented with mid LAD STEMI. He was found to have a very large thrombus burden and following removal of the thrombus, there was 30-40% mid LAD lesion, which was treated medically without PCI. He then followed up in the office with Dr. Steele/Ms. Radha PA-C in March of 2015, but did not follow up in the cardiology office after that appointment. It was recommended that he follow up in approximately 1 month. Since that time he has stopped most of his medications including his statin therapy. He also stopped taking Plavix for the past couple weeks or so. He did continue on aspirin 81 mg daily however. He has tried to become healthier by exercising more regularly and recently started swimming as well as adopting a vegan diet. He went swimming the day before presentation for 30 minutes without exertional symptoms and has not had any exertional chest pain, shortness of breath, syncope, near syncope, palpitations or edema. Yesterday at rest, he developed substernal chest discomfort described as a tightness and a pressure feeling. It radiated to his left arm. There was associated dizziness, but no shortness of breath or diaphoresis. This was similar to his prior myocardial infarction. He came to the Emergency Department. He believes that the pain was already starting to subside before any nitroglycerin. He is not certain how long the total episode lasted. He is chest pain free at the time of our discussion. Initial ECG demonstrated sinus rhythm with inferior Q-waves suggesting prior infarct. There were minor ST elevations in the inferior leads, once again with Q-waves present. He has not had any recurrent chest pain since his admission. He denies melena, hematochezia, hematuria, or other bleeding. He tolerated statin therapy well, but chose to discontinue it. He also states that he had a syncopal episode during his last hospitalization on beta sriram. He states that the beta sriram was discontinued. He was also discharged on lisinopril which is no longer on his medication list. He was on Effient in the past and Effient caused a significant allergic reaction. Effient was then replaced with Plavix which he tolerates well. REVIEW OF SYSTEMS: As above and review of systems otherwise negative. PAST MEDICAL HISTORY: 1. CAD status post RCA PCI x2 in 2013 at [facility] in [place], [place]. This included a proximal to mid RCA 4.5 x 18 mm bare metal stent post-dilated with a 4.5 mm noncompliant balloon. Distal RCA 2.5 x 18 mm Integrity drug-eluting stent post-dilated at 16 atmospheres with stent balloon. 2. Mid LAD STEMI status post aspiration thrombectomy and residual nonobstructive CAD. 3. Acid reflux. 4. Hypertension. HOME MEDICATIONS: Include aspirin 81 mg daily. INPATIENT MEDICATIONS: Include heparin drip per protocol, aspirin 81 mg daily, Plavix 75 mg daily, atorvastatin 40 mg. ALLERGIES: Effient. SOCIAL HISTORY: Quit smoking in 2016. Occasional alcohol. No drugs. He is . Three daughters, Rosibel is present at the bedside. He and Rosibel, his daughter, live together. 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 Rosibel was currently at his bedside during our discussion. FAMILY HISTORY: No known premature CAD. PHYSICAL EXAMINATION: VITAL SIGNS: Temperature 37 degrees, heart rate 58 beats per minute, respiration rate 17, blood pressure 145/89 mmHg, oxygen saturation 98% on room air. Weight 84.1 kg. GENERAL: No acute distress. He is alert. HEAD, EYES, EARS, NOSE, AND THROAT: Anicteric sclerae. NECK: No appreciable JVD. No bruits. Normal carotid upstrokes bilaterally. CARDIAC EXAMINATION: PMI was nondisplaced. There was no ventricular heave. Regular, normal S1, S2. No murmurs, rubs, or gallops were auscultated. LUNGS: Clear to auscultation bilaterally without wheezes, rales or rhonchi. ABDOMEN: Soft, nontender, nondistended. Normoactive bowel sounds. No bruits. EXTREMITIES: 2+ radial pulses bilaterally. Sunday's test okay. 2+ femoral pulses bilaterally without bruits. 2+ dorsalis pedis pulses bilaterally. No cyanosis or edema. No palpable cords. PSYCHIATRIC: Affect appears appropriate. LABORATORY DATA: White blood cell count 9.54, hemoglobin 15.4, platelets 222. Sodium 143, potassium 4.1, BUN 8, creatinine 1.1. Troponin initially was 0.02 and eventually increased to 1.92 as of earlier this morning. Magnesium 2.1. INR was 1.1. ECGs personally reviewed. Repeat ECG this morning demonstrated sinus rhythm at 61 beats per minute. Possible prior inferior infarct. Inferior T-wave inversion. Echocardiogram images were personally reviewed. Normal LV size and systolic function. Akinesis of the inferior base. EF 55-60%. Mildly dilated right ventricle with normal systolic function. No significant valvular abnormalities. Telemetry personally reviewed. No arrhythmias. Prior cardiac catheterization images personally reviewed with notable findings of the mid LAD occlusion with nonobstructive CAD noted upon completion of the case from February 2015. The proximal to mid RCA had in-stent restenosis of approximately 50%. ASSESSMENT AND PLAN: 1. Acute non-ST elevation myocardial infarction: Suspect RCA lesion as cause of his symptoms based upon ECG and echo findings. Continue aspirin and Plavix as well as heparin drip per protocol. Recommend low dose lisinopril. Continue high intensity statin therapy. Given his history, consider 80 mg daily of atorvastatin. Importance of medication compliance has been discussed with him. Cardiac catheterization recommended. Risks and benefits were discussed with him. He was made aware that CT surgery is not available at this facility. He has given informed written consent to undergo diagnostic coronary angiography, and PCI, if deemed appropriate, at [facility]. 2. Hypertension: Lisinopril 2.5 mg recommended. This can be titrated as appropriate. He would like to avoid beta sriram and he is actually bradycardic at rest and therefore would avoid any medications that can further slow his heart rate. 3. Medication noncompliance: As noted above, it was recommended that he remain on aspirin therapy indefinitely and maintain compliance with medications. Would also consider Plavix indefinitely as cardiac catheterization was then performed and found to have thrombus in his RCA. Please see catheterization report for full details. 4. Disposition: Cardiology will continue to follow. Patient's care was discussed with Dr. Mota of the hospitalist service. 5. Highly complex medical issues. ADDENDUM: Cardiac catheterization did demonstrate distal RCA thrombus and Dr. Tyler of interventional cardiology was consulted to perform PCI, as appropriate, to this area. Thank you for allowing me to participate in the care of Mr. Bustamante.
[2016-06-05] MEDS ORDERED: ACETAMINOPHEN 325 MG TAB PO PRN (16:15)
[2016-06-05] MEDS ORDERED: EPTIFIBATIDE BOLUS / DRIP IV ONE (16:15)
[2016-06-05] MEDS ORDERED: ONDANSETRON INJ 2 MG/ML 2 ML VIAL IV PRN (16:15)
[2016-06-05] MEDS ORDERED: ATROPINE SULFATE 0.1 MG/ML 5ML SYR IV PRN (16:15)
[2016-06-05] MEDS ORDERED: MoRPHine SULFATE 2 MG/ML CARP IV PRN (16:15)
--- NOTE | 2016-06-05 16:29 | Procedure Note ---
Post-Mod Sedation Assessment General Date of Moderate Sedation Jun 05, 2016. Vital Signs: Vital Signs Past 12 Hours Date Time Temp Pulse Resp B/P Pulse Ox O2 Delivery O2 Flow Rate FiO2 06/05/16 16:00 65 18 115/63 94 Room Air 06/05/16 15:45 63 18 123/80 94 Room Air 06/05/16 12:00 Room Air 06/05/16 10:55 37.0 58 17 145/89 98 Room Air 06/05/16 08:00 Room Air 06/05/16 07:31 37.2 58 20 132/92 98 Room Air 06/05/16 06:09 66 129/84 98 Room Air Review - Discharge Criteria Vital Signs Stable: Yes Alert/Oriented/Conversant: Yes Returned to Baseline Mental St: No (still sedated while awaiting PCI) Nausea Absent/Minimal: Yes Pain/Discomfort/Absent/Minimal: Yes Normal/Baseline Respirations: Yes Active Bleeding?: No Prescriptions Given: None Specific Proced. D/C Criteria Groin site assessed-Card Cath: N/A Voided Prior To Discharge: Yes Discharged Patients Adult Escort/Transportation: N/A
[2016-06-05 16:48] LABS: BASO % 0.5 %; BASO ABS # 0.05 K/uL (0-0.2); EOS % 0.8 %; HEMATOCRIT 42.7 % (42-52); IG% 0.4 %; LYMPH % 33.6 %; LYMPH ABS # 3.08 K/uL (1.2-3.4); MEAN CELL VOLUME 93.8 fL (80-100); MEAN CORPUSCULAR HEMOGLOBIN 34.3 pg (25-34); MEAN PLATELET VOLUME 10.6 fL (7.4-10.4); MONO % 7.3 %; NEUT % 57.4 %; PLATELET COUNT 186 K/uL (130-400); RED BLOOD COUNT 4.55 M/uL (4.7-6.1); WHITE BLOOD COUNT 9.17 K/uL (4.8-10.8)
[2016-06-05 17:00] LABS: COMPLETE YES; MEAN CORPUSCULAR HGB CONC 36.5 g/dl (32-36)
[2016-06-05] MEDS: EPTIFIBATIDE INJ 75 MG PREMIXED IV SCH ×2 (17:00→20:18)
--- NOTE | 2016-06-05 17:15 | Cardiac Catheterization ---
Procedure Note Procedure Date Jun 05, 2016. Pre-Procedure Diagnosis Non STEMI, Acute Coronary Syndrome, CAD AUC Score 9 Post-Procedure Diagnosis Severe CAD, Successful PCI Procedure(s) Performed Coronary Angiography, PTCA, Aspiration Thrombectomy, Drug Eluting Stent Bilingual Branch Manager Dr. Tyler Software Product Manager(s) SHANT Lyons Estimated Blood Loss 50 ml Medication(s) Fentanyl, Heparin, Integrilin, Nicardipine, Versed, Lidocaine 1% 180 mg Ticagrelor PO given in lab post PCI Summary of Findings Indications: The patient was admitted with chest pain. Cardiac enzymes positive for evidence of myocardial injury. History of coronary artery disease. Status post implantation of 4.5 millimeter diameter bare metal stent in mid RCA and Medtronic Resolute Integrity 2.5 x 18 millimeter drug eluting stent in distal RCA. History of emergency aspiration thrombectomy for thrombus in LAD. No stent deployed in the LAD because there was only a mild residual stenosis at the thrombus site. Diagnostic angiography was performed prior to this procedure by Dr. Cortes Wong. Please see his diagnostic catheterization report for complete details. Diagnostic coronary angiography revealed a subtotal distal RCA stenosis with associated thrombus just prior to the proximal border of the distal stent. There was also in stent restenosis in the proximal stent. There was mild in stent restenosis in the mid RCA stent. Catheterization site: 6 [place] glide sheath slender inserted at time of diagnostic catheterization performed by Dr. Cortes Wong. Equipment: 6 [place] JR4 guide catheter, 6 [place] ALR1-2 guide catheter,[place] guidewire, Medtronic Sprinter 2.5 x 12 millimeter balloon dilatation catheter, Medtronic Resolute Integrity 3.0 x 12 millimeter and 3.5 x 9 millimeter drug- eluting stents, [employer] Pronto [employer] extraction catheter. Protocol: Using the JR4 guide catheter the [place] guidewire was advanced into the right posterior descending artery. Over this wire the Sprinter balloon was advanced to the distal RCA. Additional intravenous heparin as well as intravenous Integrilin were administered prior to insertion of the guidewire. A therapeutic activated clotting time was documented. Two balloon inflations were performed to the distal RCA subtotal occlusion with the Sprinter balloon to pressure of 14 atmospheres for duration of 20 seconds. The 3 x 12 millimeter Resolute stent was then deployed proximal to the original distal RCA stent in an overlapping fashion. Deployed at 16 atmospheres for 45 seconds. The overlap of the stents was then post dilated with the stent delivery balloon to a pressure of 9 atmospheres for duration of 35 seconds. Another inflation was then performed to the overlap site to a pressure of 16 atmospheres for duration of 20 seconds. Intracoronary nicardipine was administered. Follow-up angiography was then performed. This revealed a residual lucency just proximal to the new stent. This was felt to be consistent with a residual stenosis and/ or associated thrombus. It was then attempted to advance the 3.5 x 9 millimeter stent to this residual stenosis in the distal RCA. The JR4 guide catheter provided very poor support. The stent would not advance into the mid RCA. Guidewire position was lost. The entire system was withdrawn. The stent was intact on the balloon. The guide catheter was exchanged for the 6 [place] ALR1-2 guide catheter. The [place] wire was then readvanced into the right posterior descending artery. The 3.5 x 9 millimeter stent was then able to be advanced to the distal RCA. It was deployed proximal to the 3 by 12 millimeter stent in an overlapping fashion. Deployed at 16 atmospheres for duration of 45 seconds. The overlap site was dilated with the stent delivery balloon to a pressure of 16 atmospheres for duration of 20 seconds. Prior to deployment of the 2nd stent it was noticed that there was a thrombus just proximal to the previously placed 4.5 millimeter diameter bare metal stent in the mid RCA. This appeared to extend into the proximal border of the stent. The 3.5 x 9 millimeter stent delivery balloon was then withdrawn to the mid RCA thrombus site. An inflation of 9 atmospheres for 20 seconds was performed. There remained a residual thrombus at the site. Aspiration thrombectomy was then performed. No significant thrombus was removed with aspiration. Repeat angiography revealed continued presence of the thrombus in the early mid RCA. This was not flow limiting. It was a small thrombus. With repeat angiography the size of the thrombus appeared to decrease. It was felt best to remove all equipment. It was planned for the patient to remain on intravenous Integrilin for at least 24 hours. His antiplatelet therapy was to be switched from clopidogrel to ticagrelor. During the entire procedure he had no complaints of any chest pain or any other anginal type symptoms. He was hemodynamically stable. No arrhythmias. Hemostasis: Terumo TR band. Findings: Guiding angiography revealed a subtotal distal RCA stenosis with associated thrombus. This was located just proximal to the previously deployed 2.5 x 18 millimeter stent. There was also in stent restenosis in the proximal segment of the stent. AMISHA 2 flow was present in the RCA. Following deployment of the 3 by 12 millimeter stent and post stent inflations there was a residual lucent area just proximal to the stent. Significant residual stenosis and/or thrombus could not be excluded. There remained AMISHA 2 flow in the RCA. Following deployment of the 3.5 x 9 millimeter stent the residual stenosis in the distal RCA at the stent sites was 0-10 percent. There was no evidence of any residual thrombus or stenosis. There was occlusion of a very small side branch arising from the stented region. There was a small thrombus present just proximal to the previously deployed bare metal stent in the mid RCA. Following balloon inflation to this site as well as aspiration thrombectomy there was no significant change in the appearance of thrombus. On repeat angiography the size of thrombus appeared to diminish. There was no evidence of dissection or distal embolic event. No evidence of perforation. There remained AMISHA 2 flow into the right posterior descending artery. Complications: Development of thrombus in mid RCA just proximal to previously deployed bare metal stent. Occlusion of very small side branch arising from the distal RCA. Plan: The patient was given a loading dose of 180 milligrams of Ticagrelor post PCI. He was to remain on intravenous Integrilin for at least 24 hours. He will remain on aspirin and statin therapy. Postprocedure electrocardiograms and cardiac enzymes. Post procedure metabolic profile and CBC. Continued cardiology follow-up with the [facility] physician group. Hemodynamics Rest Ao: 110/77/94 mm Hg. Final Ao: 135/86/108 mm Hg LV: NA Recommendations Medical therapy and/or Counseling, PCI without planned CABG Specimens None Radiation Exposure (mGy) Total 4844 for both diagnostic and interventional procedure. Contrast (mls) Total of 290 milliliters Optiray for both procedures. Fluids (cc crystalloids) Total of 250 milliliters for both procedures. Drains None Anesthesia Intravenous Versed and fentanyl. Lidocaine 1 percent for local anesthesia. Procedural Complication(s) Formation of small thrombus in mid RCA. Probable occlusion of a very small caliber side branch arising from the distal RCA. Disposition PCU ACC Data Cardiac Status Clinical evaluation leading to the procedure CAD Presntation: Unstable angina, Non STEMI Anginal Classification: CCS IV Heart Failure: No Cardiogenic Shock w/in 24Hrs: No Cardiac Arrest w/in 24Hrs: No Stress studies past 6 months: Yes Standard Exercise Stress Test: No Stress Echocardiogram: No Stress Testing w/SPECT MPI: No Cardiac CTA: No Coronary Anatomy Left Main (% Stenosis): Normal (For complete report of coronary angiography please see cardiac catheterization report by Dr. Wong.) Left Ventricular Angiography EF (%): NA Diagnostic Physician's Name: Leobardo Wong MD Status: Elective Closure Device Percutaneous Entry Location: Radial Closure Device: Radial Band Recommendations: Medical therapy and/or Counseling, PCI without planned CABG PCI Indication: PCI for high risk Non-STEMI Lesion Segment Name: Distal RCA Culprit Artery: Yes Stenosis Prior to Rx (%): 99 Chronic Total Occlusion: No IVUS: No FFR: No Pre-Procedure AMISHA Flow: 2 Previously Treated Lesion: Yes Treated Lesion: Timeframe: greater than 2 years Treated with Stent: Yes In-Stent Restenosis: Yes In-Stent Thrombosis: Yes Stent Type: BENITEZ Lesion Complexity: Non-High/Non-C Lesion Length (mm): 11 mm Thrombus Present: Yes Bifurcation Lesion: No Guidewire Across Lesion: Yes Guidewire: Stenosis Post-Procedure (%): 0-10 Post-Procedure AMISHA Flow: 2 Device(s) Deployed: Yes (Medtronic Resolute integrity 3.0 x 12 millimeter and 3.5 x 9 millimeter drug-eluting stents.) Type of Device(s): Medtronic Resolute 3.0 x 12 millimeter and 3.5 x 9 millimeter drug-eluting stents. Intraprocedure Events Significant Dissection: No Perforation: No
[2016-06-05] MEDS: SODIUM CHLORIDE 0.9% 1000ML 1,000 ML IV SCH (18:03)
[2016-06-06] VITALS (14 sets, daily range): BP systolic 101–138; BP diastolic 53–84; PULSE 54–81; TEMP 36.6–38; O2SAT 94–100
[2016-06-06] MEDS: NITROGLYCERIN OINT 2% 1GM PACKET EXT SCH ×5 (00:02→23:24)
[2016-06-06] MEDS: SODIUM CHLORIDE 0.9% 1000ML 1,000 ML IV SCH (00:03)
[2016-06-06] MEDS: EPTIFIBATIDE INJ 75 MG PREMIXED IV SCH ×2 (04:00→12:43)
[2016-06-06] MEDS: ACETAMINOPHEN 325 MG TAB PO PRN (04:00)
[2016-06-06 05:24] LABS: COMPLETE YES; EOS % 1.4 %; HEMATOCRIT 41.1 % (42-52); IG% 0.3 %; LYMPH % 9.4 %; LYMPH ABS # 1.07 K/uL (1.2-3.4); MEAN CELL VOLUME 94.3 fL (80-100); MEAN CORPUSCULAR HEMOGLOBIN 33.5 pg (25-34); MEAN CORPUSCULAR HGB CONC 35.5 g/dl (32-36); MONO % 3.6 %; NEUT % 85.3 %; PLATELET COUNT 215 K/uL (130-400); RED BLOOD COUNT 4.36 M/uL (4.7-6.1); WHITE BLOOD COUNT 11.33 K/uL (4.8-10.8)
[2016-06-06 05:29] LABS: PARTIAL THROMBOPLASTIN RATIO 0.9
[2016-06-06 05:38] LABS: BUN/CREATININE RATIO 4.7 (10-20); CALCIUM 8.4 mg/dl (8.5-10.1); CREATININE 1.1 mg/dl (0.60-1.40); POTASSIUM 4.2 mmol/L (3.5-5.1)
[2016-06-06] MEDS: LISINOPRIL 2.5 MG TAB PO SCH (07:37)
[2016-06-06] MEDS: ASPIRIN 81 MG ECTAB PO SCH (07:38)
[2016-06-06] MEDS: ATORVASTATIN 40 MG TAB PO SCH (07:38)
[2016-06-06] MEDS ORDERED: TICAGRELOR 90 MG TAB PO SCH (09:00)
[2016-06-06] MEDS ORDERED: DiphenhydrAMINE HCL 50 MG/ML VIAL IV PRN (10:00)
[2016-06-06] MEDS ORDERED: DiphenhydrAMINE HCL 50 MG/ML VIAL IV ONE (10:15)
--- NOTE | 2016-06-06 11:41 | CARDIOLOGY PROGRESS NOTE ---
DATE: 06/06/2016 TIME: 10:39 a.m. SUBJECTIVE: No further angina. No shortness of breath, syncope, near syncope, palpitations, or orthopnea. No bleeding. He is starting to have a reaction involving his proximal lower extremities similar to when he was on Effient in the past. He feels as though his skin is becoming pruritic as well as a burning sensation. It is very uncomfortable for him. It is much more uncomfortable for anything to rub on his skin such as clothing or bed linen. He was actually found standing in his room due to the discomfort of contact on his skin. He has been ordered Benadryl by the primary service. OBJECTIVE: VITAL SIGNS: Temperature 37.2 degrees, heart rate 65 beats per minute, respiration rate 20, blood pressure 105/66 mmHg, oxygen saturation 95% on room air. His maximum temperature overnight was 38 degrees, which was at 4 a.m. this morning. Weight 84.3 kg. GENERAL: No acute distress. He is alert, oriented. HEAD, EYES, EARS, NOSE AND THROAT: Anicteric sclerae. NECK: No appreciable JVD. CARDIAC EXAMINATION: No ventricular heave, regular, normal S1, S2, no murmurs, rubs or gallops auscultated. LUNGS: Clear to auscultation bilaterally without wheezes, rales or rhonchi. ABDOMEN: Soft, nontender, nondistended. Normoactive bowel sounds. EXTREMITIES: Proximal lower extremities in the hamstring area was notable for some discoloration. Right radial cath site is clean, dry, intact, without erythema or discharge. 1+ right radial pulse distal to the cath site. No cyanosis or edema. PSYCHIATRIC: Affect appears appropriate. MEDICATIONS: Include Integrilin drip, aspirin 81 mg daily, Lipitor 40 mg daily, lisinopril 2.5 mg daily, normal saline 75 mL per hour, and Brilinta 90 mg p.o. b.i.d. ECGs done this morning personally reviewed. Sinus bradycardia at 58 beats per minute. Inferior T-wave inversion. Cannot rule out inferior infarct. Telemetry personally reviewed. No arrhythmia. Cardiac catheterization performed yesterday as noted. Please see report for full details. He did undergo PCI to the distal RCA with a 3 x 12 mm Resolute drug-eluting stent and a 3.5 x 9 mm drug-eluting stent. There was noted formation of small thrombus in the mid RCA and probable occlusion of a very small caliber side branch arising from the distal RCA. The decision was made at that point to medically manage as there appeared to be formation of these new thrombi. ASSESSMENT AND PLAN: 1. Acute non-ST elevation myocardial infarction with distal right coronary artery thrombus and distal right coronary artery in-stent restenosis: No further angina. He has undergone percutaneous coronary intervention with 2 drug-eluting stents in the distal right coronary artery territory. There was some residual thrombus with new thrombus formation in the mid right coronary artery. Recommend aspirin 81 mg daily indefinitely. Recommend Plavix indefinitely, 75 mg daily, IN PLACE OF [place] HE APPEARS TO BE HAVING AN ALLERGIC REACTION. He will complete his Integrilin this evening. Cardiac rehabilitation was recommended and he is willing to undergo cardiac rehabilitation. Continue angiotensin-converting enzyme inhibitor at current dose for now. Beta sriram has not been instituted due to bradycardia and he states that he did not tolerate it well in the past. Continue to monitor. Probable discharge tomorrow. 2. Hypertension: Blood pressure well controlled on lisinopril. Continue medication at current dose. 3. Coronary artery disease: Continue high intensity statin therapy. Atorvastatin will be increased to 80 mg daily given his recurrent events, although his recurrent events due appear to be thrombotic. He had a thrombotic mid left anterior descending ST segment elevation myocardial infarction in 2014, and interestingly, he had stopped Plavix 1-2 weeks before that event as well. In review, he has self-discontinued Plavix on 2 occasions and within 1-2 weeks of self-discontinuing Plavix he had thrombotic myocardial infarctions. Therefore, would recommend lifelong aspirin and Plavix. 4. Medication noncompliance: He appears to be very motivated to continue medications as prescribed given his recurrent events. 5. ALLERGIC REACTION: POSSIBLY DUE TO [place]. Changing to Plavix. Will give at 300 mg dose of Plavix this evening and discontinued Integrilin drip 1-2 hours following Plavix initiation. 6. Disposition: Cardiology will continue to follow.
[2016-06-06] MEDS ORDERED: CLOPIDOGREL BISULFATE 300 MG TAB PO ONE (11:45)
--- NOTE | 2016-06-06 11:53 | Family Medicine Progress Note ---
Progress Note Date of Service Jun 06, 2016. Subjective Pt evaluation today including: conversation w/ patient, physical exam, chart review, lab review Patient uncomfortable this morning. He is starting to have an itchy burning sensation in reaction to his medication involving his groin and proximal lower extremities. It is similar to the reaction to Effient in the past, although less severe. In the previous incident, he had skin desquamation. Besides this, patient has no complaints. He has no further chest pain or dyspnea. No issues with eating or sleeping. Constitutional: No chills, No fever Respiratory: No cough, No shortness of breath Cardiovascular: No chest pain, No palpitations Abdomen: No constipation, No diarrhea, No nausea, No pain, No vomiting Male : No dysuria Psychiatric: + anxiety Skin: + itch, No rash Medications Medications Administered Medications (Trade) Dose Ordered Sig/Nasim Route Start Time Stop Time Status Last Admin Dose Admin Nitroglycerin (Nitroglycerin 2% Oint) 1 inch STK-MED ONCE .ROUTE 06/04/16 13:04 06/04/16 13:05 DC 06/04/16 13:12 1 INCH Enoxaparin Sodium (Lovenox Inj) 40 mg Q24H SC 06/04/16 16:00 06/04/16 22:30 DC 06/04/16 16:47 40 MG Acetaminophen (Tylenol Tab) 650 mg Q4H PRN PO 06/04/16 15:00 07/04/16 14:59 06/06/16 04:00 650 MG Nitroglycerin (Nitroglycerin 2% Oint) 1 inch Q6H EXT 06/04/16 18:00 07/04/16 17:59 06/06/16 18:20 1 INCH Aspirin (Ecotrin Tab) 81 mg DAILY PO 06/05/16 09:00 07/05/16 08:59 06/06/16 07:38 81 MG Clopidogrel Bisulfate (plAVix TAB) 75 mg DAILY PO 06/05/16 09:00 06/05/16 16:19 DC 06/05/16 11:36 75 MG Atorvastatin Calcium 40 mg 40 mg QAM PO 06/05/16 09:00 06/06/16 10:39 DC 06/06/16 07:38 40 MG Heparin Sodium/ Dextrose 500 ml @ 25 mls/hr Q20H PRN IV 06/04/16 23:00 06/05/16 16:19 DC 06/04/16 23:08 25 MLS/HR Heparin Sodium (Porcine)/Syringe (Heparin Iv Bolus/Syringe) 5 ml @ 10 mls/min NOW ONCE IV 06/04/16 23:00 06/04/16 23:01 DC 06/04/16 23:07 10 MLS/MIN Lisinopril (Zestril Tab) 2.5 mg QAM PO 06/06/16 09:00 07/06/16 08:59 06/06/16 07:37 2.5 MG Heparin Sodium (Porcine) (Heparin Iv Bolus) 10,000 unit STK-MED ONCE .ROUTE 06/05/16 13:21 06/05/16 13:23 DC 06/05/16 13:21 6,000 UNIT Fentanyl Citrate (Fentanyl Inj) 100 mcg STK-MED ONCE .ROUTE 06/05/16 13:21 06/05/16 13:23 DC 06/05/16 13:21 100 MCG Midazolam HCl (Versed Inj) 2 mg STK-MED ONCE .ROUTE 06/05/16 13:21 06/05/16 13:23 DC 06/05/16 13:21 2 MG Midazolam HCl (Versed Inj) 2 mg STK-MED ONCE .ROUTE 06/05/16 14:18 06/05/16 14:19 DC 06/05/16 14:18 1 MG Fentanyl Citrate (Fentanyl Inj) 100 mcg STK-MED ONCE .ROUTE 06/05/16 15:53 06/05/16 15:55 DC 06/05/16 15:53 50 MCG Ticagrelor 180 mg 180 mg STK-MED ONCE PO 06/05/16 15:53 06/05/16 15:55 DC 06/05/16 15:57 180 MG Sodium Chloride (Nss 1000ml) 1,000 ml @ 75 mls/hr [id number] IV 06/05/16 16:15 06/06/16 10:42 DC 06/06/16 00:03 75 MLS/HR Ticagrelor 90 mg 90 mg BID PO 06/06/16 09:00 06/06/16 10:39 DC 06/06/16 07:39 90 MG Eptifibatide (Integrilin Inj) 100 ml @ 13 mls/hr Q7H42M IV 06/05/16 17:00 06/06/16 18:00 DC 06/06/16 12:43 13 MLS/HR Diphenhydramine HCl (Benadryl Inj) 50 mg TODAY@1015 ONCE IV 06/06/16 10:15 06/06/16 10:16 DC 06/06/16 10:08 50 MG Clopidogrel Bisulfate (plAVix TAB) 300 mg TODAY@1145 ONCE PO 06/06/16 11:45 06/06/16 11:46 DC 06/06/16 12:54 300 MG Objective Vital Signs Date Time Temp Pulse Resp B/P Pulse Ox O2 Delivery O2 Flow Rate FiO2 06/06/16 20:00 96 Room Air 06/06/16 19:28 36.8 58 18 124/81 98 06/06/16 16:00 96 Room Air 06/06/16 15:58 37.3 61 18 133/84 96 Room Air 06/06/16 12:13 Room Air 06/06/16 11:56 36.6 55 20 121/56 98 Room Air 06/06/16 11:40 36.9 54 20 109/63 100 Room Air 06/06/16 08:00 Room Air 06/06/16 07:56 37.2 65 20 105/66 95 Room Air 06/06/16 06:13 37.1 101/60 06/06/16 05:10 37.6 06/06/16 05:06 37.9 06/06/16 04:02 Room Air 06/06/16 04:00 38.0 81 18 102/53 94 Room Air 06/06/16 00:25 37.6 66 18 127/74 99 Room Air 06/06/16 00:02 Room Air Physical Exam General Appearance: WD/WN, + mild distress Neck: supple, no JVD Respiratory/Chest: chest non-tender, lungs clear, normal breath sounds, no respiratory distress, no accessory muscle use Cardiovascular: regular rate, rhythm, no edema, no murmur Abdomen: normal bowel sounds, non tender, soft, no organomegaly Extremities: no pedal edema, no calf tenderness Neurologic/Psychiatric: alert, normal mood/affect, oriented x 3 Skin: normal color, warm/dry Laboratory Results Results Past 24 Hours Test 06/06/16 05:00 1/26/17 14:24 06/06/16 20:03 06/06/16 21:42 Range/Units White Blood Count 11.33 4.8-10.8 K/uL Red Blood Count 4.36 4.7-6.1 M/uL Hemoglobin 14.6 14.0-18.0 g/dL Hematocrit 41.1 42-52 % Mean Corpuscular Volume 94.3 80-100 fL Mean Corpuscular Hemoglobin 33.5 25-34 pg Mean Corpuscular Hemoglobin Concent 35.5 32-36 g/dl Platelet Count 215 130-400 K/uL Mean Platelet Volume 10.0 7.4-10.4 fL Neutrophils (%) (Auto) 85.3 % Lymphocytes (%) (Auto) 9.4 % Monocytes (%) (Auto) 3.6 % Eosinophils (%) (Auto) 1.4 % Basophils (%) (Auto) 0.0 % Neutrophils # (Auto) 9.66 1.4-6.5 K/uL Lymphocytes # (Auto) 1.07 1.2-3.4 K/uL Monocytes # (Auto) 0.41 0.11-0.59 K/uL Eosinophils # (Auto) 0.16 0-0.5 K/uL Basophils # (Auto) 0.00 0-0.2 K/uL RDW Standard Deviation 45.0 36.4-46.3 fL RDW Coefficient of Variation 13.1 11.5-14.5 % Immature Granulocyte % (Auto) 0.3 % Immature Granulocyte # (Auto) 0.03 0.00-0.02 K/uL Activated Partial Thromboplast Time 24.5 21.0-31.0 SECONDS Partial Thromboplastin Ratio 0.9 Sodium Level 142 136-145 mmol/L Potassium Level 4.2 3.5-5.1 mmol/L Chloride Level 107 98-107 mmol/L Carbon Dioxide Level 25 21-32 mmol/L Anion Gap 10.0 3-11 mmol/L Blood Urea Nitrogen 5 7-18 mg/dl Creatinine 1.10 0.60-1.40 mg/dl Est Creatinine Clear Calc Drug Dose 81.0 ml/min Estimated GFR () 90.9 Estimated GFR (Non- 78.4 BUN/Creatinine Ratio 4.7 10-20 Random Glucose 93 70-99 mg/dl Calcium Level 8.4 8.5-10.1 mg/dl Troponin I 0.985 0.684 1.240 0-0.045 ng/ml Creatine Kinase MB 10.3 0.5-3.6 ng/ml Creatine Kinase MB Ratio 0-3.0 Assessment and Plan 51 year old male presents to ED with atypical chest pain and elevated troponin indicative of NSTEMI on a background of CAD s/p RCA PCI x2 (2012) as well as mid LAD STEMI followed by aspiration thrombectomy (2014). Underwent PCI. NSTEMI - Presented with atypical chest pain - EKG showed sinus rhythm with inferior Q-waves suggesting prior infarct. There were minor ST elevations in the inferior leads, once again with Q-waves present. - Troponin trended: 0.02 --> 1.70 --> 1.92 - Patient started on a heparin drip per protocol. - Cardio consulted. Recommend continuing aspirin and Plavix as well as heparin drip per protocol. Recommend low dose lisinopril. Continue statin therapy, Atorvastatin 80mg daily given his history. Avoid b-sriram given bradycardia. - Cardiac cath performed 06/05 showin. Severe CAD and thrombus formation within the distal RCA, including proximal distal RCA stent. 2. Nonobstructive CAD within mid LAD and proximal to mid RCA stent. 3. Normal LVEDP. 4. No aortic stenosis. - PCI was deployed in to the distal RCA x2 drug-eluting stents. There was noted formation of small thrombus in the mid RCA and probable occlusion of a very small caliber side branch arising from the distal RCA - it was decided for medical management - Patient was given a loading dose of 180 milligrams of Ticagrelor post PC with IV Integrilin x at least 24 hours and plans for postprocedure EKGs, and cardiac enzymes - Repeat echo showed: Normal left ventricular size and systolic function. EF 55-60% with akinesis of the inferior base. Mild concentric left ventricular hypertrophy. Type 1 diastolic dysfunction. Mildly dilated right ventricle with normal systolic function. Hypermobile interatrial septum with probable small PFO (minimal bubbles noted within the left atrium suggesting small right to left interatrial shunt). No significant valvular abnormalities visualized. - Patient agreeable to commence cardiac rehabilitation - Extensive time (60min) was spent discussing intermediate school teacher preventative management including lifestyle behaviours, medication function and importance of compliance HTN - Patient started on low dose Lisinopril 2.5 mg - May need to titrate Allergic reaction - Itching and burning felt on patient's groin and upper thighs - similar to reaction with Effient use, although this time, without desquamation thus far - Patient given diphenhydramine 50mg IV for allergic skin reaction to ticagrelor. - Symptoms resolved. - Ticagrelor discontinued. DVT prophylaxis - Heparin Dispo - Full code - Telemetry Resident Physician Supervision Note: I interviewed and examined the patient. Discussed with Dr. De La Cruz and agree with findings and plan as documented in the note. Any exceptions or clarifications are listed here: None Documented By: Kiko Mota vague chest pain this afternoon - went away. had no exertional component, no sob, no arm pain. was not worse as he was getting up to wash and when he was standing to eat. went away, then came back some as we were discussing meds - he thinks it may be anxiety as he was stressed about the meds and also because it felt very different from his other chest pain that was more c/w angina. ~45mins discussions on lifestyle, meds, and ongoing secondary prevention. discussed all in detail and answered all questions to the best of my ability. pt's dtr present for discussion as well. vitals noted, nad, breathing unlabored, no pallor or icterus. no neurologic deficits. a/p CAD w NSTEMI - likely related to fam hx + medication nonadherence. current chest pain vague and not c/w angina. cardiology aware as well. is on asa + plavix + integrillin. is on ACEi, on nitropaste (will add prn nitro), has prn morphine. can't add beta sriram because of low HR. 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 ~45mins discussion on secondary prevention including meds and lifestyle. emphasized that he's doing VERY well with lifestyle, but that meds statistically are even of more of a secondary prevention benefit. discussed each med individually - rationale, risks/benefits/duration. he expressed understanding, asked a lot of good questions, and a very good discussion overall. continue inpt mangement until off integrillin, clearly no further CP. Continued [facility] stay due to: abnormal vital signs
--- NOTE | 2016-06-06 14:27 | ECHOCARDIOGRAM REPORT ---
*NOTICE TO RECEIVING CONSTITUTION PARTY AGENCY This information is strictly Confidential and protected under [place] law. [place] law prohibits you from making any further disclosure of this information unless further disclosure is expressly permitted by the written consent of the person to whom it pertains or is authorized by law. A general authorization for the release of medical or other information is not sufficient for this purpose. Hospital accepts no responsibility if the information is made available to any other person, INCLUDING THE PATIENT. Interpretation Summary * Name: DAVID WHYTE Study Date: 06/05/2016 11:14 AM BP: 132/92 mmHg * Patient Location: C.2E\S\E210\S\1 HR: 58 * : 1965 (M/d/yyyy) Gender: Male Height: 65 in * Age: 51 yrs Ethnicity: AA Weight: 185 lb * Ordering Physician: Leobardo Wong MD * Performed By: Dolores Lopez * * Reason For Study: SUBENDOCARDIAL [place] * BSA: 1.9 m2 * -- Conclusions -- * 1. Normal left ventricular size and systolic function. EF 55-60% akinesis of the inferior base. Mild concentric left ventricular hypertrophy. Type 1 diastolic dysfunction. * 2. Mildly dilated right ventricle with normal systolic function. * 3. Hypermobile interatrial septum with probable small PFO (minimal bubbles noted within the left atrium suggesting small right to left interatrial shunt). * 4. No significant valvular abnormalities visualized. * 5. Compared to prior study on 03/06/2015, there is now akinesis of inferior base. Procedure Details * A complete two-dimensional transthoracic echocardiogram was performed (2D, M-mode, Doppler and color flow Doppler). * A saline contrast injection was performed to assess for cardiac shunting. * The injection was performed through an intravenous line in the right arm. * The attending nurse who injected the saline contrast was LEVON DOMINGUEZ RN. * A total of 20 cc of agitated saline was given. Left Ventricle * Normal left ventricular size and systolic function. EF 55-60% akinesis of the inferior base. Mild concentric left ventricular hypertrophy. Type 1 diastolic dysfunction. Right Ventricle * Mildly dilated right ventricle with normal systolic function. Atria * The left atrial size is normal. * Right atrial size is normal. * Hypermobile interatrial septum with probable small PFO (minimal bubbles noted within the left atrium suggesting small right to left interatrial shunt). Mitral Valve * The mitral valve is normal in structure and function. * There is no mitral valve stenosis. * There is trace mitral regurgitation. Tricuspid Valve * The tricuspid valve is not well visualized, but is grossly normal. * There is no tricuspid stenosis. * There is trace tricuspid regurgitation. Aortic Valve * The aortic valve is normal in structure and function. * The aortic valve is trileaflet. * No hemodynamically significant valvular aortic stenosis. * No aortic regurgitation is present. Pulmonic Valve * The pulmonary valve is inadequately visualized, but the Doppler data is adequate for interpretation. * There is no pulmonic valvular stenosis. * Trace pulmonic valvular regurgitation. Great Vessels * The aortic root is normal size. Pericardium/Pleural * There is no pericardial effusion. Great Vessels * Normal IVC size. MMode 2D Measurements and Calculations IVSd 1.2 cm IVSs 1.6 cm LVIDd 4.5 cm LVIDs 3.3 cm LVPWd 1.3 cm LVPWs 1.9 cm IVS/LVPW 0.94 FS 27.0 % EDV(Teich) 94.3 ml ESV(Teich) 44.6 ml EF(Teich) 52.7 % EDV(cubed) 93.4 ml ESV(cubed) 36.4 ml EF(cubed) 61.0 % % IVS thick 36.2 % % LVPW thick 51.3 % LV mass(C)d 206.4 grams LV mass(C)dI 107.9 grams/m\S\2 LV mass(C)s 236.4 grams LV mass(C)sI 123.6 grams/m\S\2 SV(Teich) 49.7 ml SI(Teich) 26.0 ml/m\S\2 SV(cubed) 57.0 ml SI(cubed) 29.8 ml/m\S\2 Ao root diam 3.4 cm Ao root area 9.0 cm\S\2 ACS 1.6 cm LA dimension 4.1 cm asc Aorta Diam 3.5 cm LA/Ao 1.2 LVOT diam 1.9 cm LVOT area 2.9 cm\S\2 LVAd ap4 33.3 cm\S\2 LVLd ap4 7.7 cm EDV(MOD-sp4) 115.2 ml EDV(sp4-el) 122.1 ml LVAs ap4 18.4 cm\S\2 LVLs ap4 6.3 cm ESV(MOD-sp4) 45.7 ml ESV(sp4-el) 45.8 ml EF(MOD-sp4) 60.4 % EF(sp4-el) 62.5 % LVAd ap2 34.8 cm\S\2 LVLd ap2 8.3 cm EDV(MOD-sp2) 126.3 ml EDV(sp2-el) 124.2 ml LVAs ap2 19.2 cm\S\2 LVLs ap2 6.0 cm ESV(MOD-sp2) 51.5 ml ESV(sp2-el) 52.1 ml EF(MOD-sp2) 59.2 % EF(sp2-el) 58.0 % LVLd %diff 6.9 % EDV(MOD-bp) 117.3 ml LVLs %diff -4.47 % ESV(MOD-bp) 48.7 ml EF(MOD-bp) 58.5 % SV(MOD-sp4) 69.5 ml SI(MOD-sp4) 36.3 ml/m\S\2 SV(MOD-sp2) 74.8 ml SI(MOD-sp2) 39.1 ml/m\S\2 SV(MOD-bp) 68.7 ml SI(MOD-bp) 35.9 ml/m\S\2 SV(sp4-el) 76.3 ml SI(sp4-el) 39.9 ml/m\S\2 SV(sp2-el) 72.1 ml SI(sp2-el) 37.7 ml/m\S\2 Doppler Measurements and Calculations MV E max arsh 62.6 cm/sec MV A max arsh 74.4 cm/sec MV E/A 0.84 MV dec time 0.24 sec Ao V2 max 113.9 cm/sec Ao max PG 5.2 mmHg Ao max PG (full) 0.31 mmHg RAPHAEL(V,A) 2.8 cm\S\2 RAPHAEL(V,D) 2.8 cm\S\2 LV V1 max PG 4.9 mmHg LV V1 mean PG 2.1 mmHg LV V1 max 110.4 cm/sec LV V1 mean 64.1 cm/sec LV V1 VTI 22.7 cm SV(LVOT) 66.1 ml SI(LVOT) 34.5 ml/m\S\2 TV E max arsh 45.3 cm/sec PA V2 max 68.5 cm/sec PA max PG 1.9 mmHg PI end-d arsh 81.2 cm/sec
[2016-06-06] MEDS ORDERED: NITROGLYCERIN 0.4 MG SL PER TAB CHARGE SL PRN (15:45)
[2016-06-07] VITALS (13 sets, daily range): BP systolic 115–141; BP diastolic 63–86; PULSE 55–72; TEMP 36.9–37.7; O2SAT 96–99
[2016-06-07 05:13] LABS: BASO % 0.1 %; BASO ABS # 0.01 K/uL (0-0.2); COMPLETE YES; EOS % 2.3 %; HEMATOCRIT 40.1 % (42-52); IG% 0.3 %; LYMPH % 18.2 %; LYMPH ABS # 2.33 K/uL (1.2-3.4); MEAN CELL VOLUME 94.4 fL (80-100); MEAN CORPUSCULAR HEMOGLOBIN 33.4 pg (25-34); MEAN CORPUSCULAR HGB CONC 35.4 g/dl (32-36); MONO % 5.7 %; NEUT % 73.4 %; PLATELET COUNT 199 K/uL (130-400); RED BLOOD COUNT 4.25 M/uL (4.7-6.1); WHITE BLOOD COUNT 12.82 K/uL (4.8-10.8)
[2016-06-07 05:39] LABS: BUN/CREATININE RATIO 5.9 (10-20); CALCIUM 8.8 mg/dl (8.5-10.1); POTASSIUM 3.9 mmol/L (3.5-5.1)
[2016-06-07] MEDS: NITROGLYCERIN OINT 2% 1GM PACKET EXT SCH ×4 (06:03→22:03)
[2016-06-07] MEDS: LISINOPRIL 2.5 MG TAB PO SCH (07:59)
[2016-06-07] MEDS: CLOPIDOGREL BISULFATE 75 MG TAB PO SCH (07:59)
[2016-06-07] MEDS: ASPIRIN 81 MG ECTAB PO SCH (07:59)
[2016-06-07] MEDS ORDERED: Integrelin infusion --> STOP ORDER ONE (08:00)
[2016-06-07] MEDS: ATORVASTATIN 40 MG TAB PO SCH (09:30)
[2016-06-07] MEDS ORDERED: HEPARIN IV BOLUS 6,000 UNIT in SYRINGE 0 ML IV SCH (09:30)
[2016-06-07] MEDS ORDERED: HEPARIN 25,000 UNIT/500ML D5W 500 ML IV PRN (09:30)
--- NOTE | 2016-06-07 09:42 | CARDIOLOGY PROGRESS NOTE ---
DATE: 06/07/2016 TIME: 08:56 a.m. SUBJECTIVE: He had an episode of chest discomfort yesterday afternoon, which resolved after approximately 30 minutes. New troponins were cycled and they became more elevated. Overnight, he had another episode at approximately 07:00 p.m. and at approximately 01:00 a.m. They both occurred at rest and were similar to his typical angina. They resolved without intervention. He did not receive any sublingual nitroglycerin. He also walked in the hallways in between and did so without exertional symptoms. He denies syncope, near syncope, palpitations or bleeding. OBJECTIVE: VITAL SIGNS: Temperature 37.4 degrees, heart rate 60 beats per minute, respiratory rate 18, blood pressure 128/77 mmHg, and oxygen saturation 96% on room air. Heart rate is intermittently bradycardic with heart rate in the 50s. Weight 85.1 kg. GENERAL: No acute distress. He is alert. NECK: No JVD. CARDIAC EXAM: No ventricular heaves. Regular, normal S1 and S2. No murmurs, rubs, or gallops were auscultated. LUNGS: Clear to auscultation bilaterally without wheezes, rales or rhonchi. ABDOMEN: Soft, nontender, and nondistended. Normoactive bowel sounds. No bruits. EXTREMITIES: No cyanosis or edema. ECG done on 06/06/2016 at 09:26 personally reviewed. Inverted T waves inferiorly with a prior inferior infarct. Sinus bradycardia at 51 beats per minute. ECG performed at 02:43 a.m. today, sinus bradycardia at 53 beats per minute with inferior infarct and T-wave inversions inferiorly. MEDICATIONS: Include aspirin 81 mg daily, Plavix 75 mg daily, atorvastatin 80 mg daily, lisinopril 2.5 mg daily, and nitroglycerin paste 1 inch q. 6 hours. Telemetry personally reviewed. No arrhythmias. LABORATORY DATA: White blood cell count 12.8, hemoglobin 14.2, and platelets 199. Sodium 143, potassium 3.9, BUN 6, and creatinine 1. Troponin trending upward 4.2 at 02:00 a.m. ASSESSMENT AND PLAN: 1. Acute non-ST elevation myocardial infarction: He has thrombus in his RCA, which was noted at the end of his last cardiac catheterization. He continued to develop new thrombus throughout the procedure as noted by Dr. Tyler. Continue aspirin and Plavix. Due to intermittent rest angina, recommend repeat cardiac catheterization. This was discussed with him in detail. Cardiac catheterization images were personally reviewed with Dr. Tyler and Dr. Wyatt of an interventional cardiology. Dr. Wyatt is in agreement to perform this procedure later today as the patient did eat breakfast and he is currently chest pain free, so there is no emergent indication. 2. Coronary artery disease. Continue high intensity statin therapy as well as antiplatelet therapy as above. Would continue aspirin and Plavix indifferently at this time. 3. Hypertension: Blood pressure adequately controlled on lisinopril. Continue current regimen. 4. Thrombus formation in the Coronary vasculature: Hematology consultation will be placed. Interestingly, he does not have a family history of thrombus and has not had any thrombus noted in other vessels. Could be related to the fact that his coronary vessels are large and therefore with slower flow, but would like to rule out clotting disorder. 5. Possible allergic reaction: His pruritic and burning skin changes from yesterday have improved. His new medications at that time were Integrilin and Brilinta. He has been changed to Plavix. HE IS ALSO ALLERGIC TO EFFIENT. 6. Bradycardia: Beta sriram has not been used due to resting bradycardia. He is asymptomatic. 7. Disposition: High complex medical issues. Plan of care has been discussed with Dr. De La Cruz of the hospitalist service.
[2016-06-07 10:16] LABS: INR 1.1 (0.9-1.1); PARTIAL THROMBOPLASTIN RATIO 0.9; PROTHROMBIN TIME (PATIENT) 11.5 SECONDS (9.0-12.0)
[2016-06-07 11:03] LABS: CKMB/CK RATIO 6.2 (0-3.0)
--- NOTE | 2016-06-07 11:48 | Oncology Consultation ---
Oncology/Heme Consultation Date of Consultation: Jun 07, 2016. Attending Physician: Kiko Mota D.O. Reason for Consultation: STEMI, history of CAD History of Present Illness Mr. Bustamante is an otherwise quite healthy 51 year old gentleman with a history of coronary artery disease. He had a thrombotic VA of his mid-LAD in February, in the setting of a 30-40% stenosis treated with aspiration thrombectomy. He also has had two stents, one bare metal and one drug-eluting, placed in his RCA in 2012. He presented to [facility] 06/04/16 with symptoms of substernal chest pain radiating to his left arm. His troponins peaked at 1.9 and he underwent cardiac catheterization the following day. This revealed the same 40% mid LAD stenosis and in-stent restenosis at both his RCA stents (40% in the proximal one and 70% in the distal one) along with 90-95% occlusion just proximal to the second stent with opacification suggestive of a thrombus. He underwent a second cath a few hours later with deployment of a BENITEZ to this stenosis. During the procedure, an area of thrombosis was noted and was aspirated. He feels better now, after the procedures, though notably his troponins are rising again and were over 4 this morning. He is awaiting a repeat before possible further angiogram. He is a very active young man. 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 He denies any anabolic steroid use. He has a history of smoking 1-2 cigarillos per day, though he stopped this a few years ago. He has no family history of DM, CAD, or thrombotic events. He denies any personal history of VTE. He denies any personal or family history of autoimmune disorders. Past Medical/Surgical History Medical Problems: (1) Acute chest pain Status: Acute (2) Hypertension Status: Chronic Family History Patient reports no known family medical history. Social History Smoking Status: Former Smoker Drug Use: none Marital Status: single Housing Status: lives alone Occupation Status: employed Allergies Coded Allergies: Prasugrel (Unverified Allergy, Severe, skin blistering and peeling with burning and itching, 06/06/16) PER RODRIGUE'S NOTE HE TOLERATES PLAVIX Home Medications Scheduled Aspirin (Aspirin Ec), 81 MG PO DAILY Clopidogrel (Plavix), 75 MG PO DAILY Current Inpatient Medications Current Inpatient Medications Medications (Trade) Dose Ordered Sig/Nasim Route Start Time Stop Time Status Last Admin Dose Admin Acetaminophen (Tylenol Tab) 650 mg Q4H PRN PO 06/04/16 15:00 07/04/16 14:59 06/06/16 04:00 650 MG Ondansetron HCl (Zofran Inj) 4 mg Q6H PRN IV 06/04/16 15:00 07/04/16 14:59 Nitroglycerin (Nitroglycerin 2% Oint) 1 inch Q6H EXT 06/04/16 18:00 07/04/16 17:59 06/07/16 06:03 1 INCH Aspirin (Ecotrin Tab) 81 mg DAILY PO 06/05/16 09:00 07/05/16 08:59 06/07/16 07:59 81 MG Miscellaneous (Iv Fluids Completed) 1 ea PRN PRN N/A 06/04/16 15:30 06/04/17 15:29 Lisinopril (Zestril Tab) 2.5 mg QAM PO 06/06/16 09:00 07/06/16 08:59 06/07/16 07:59 2.5 MG Atropine Sulfate (Atropine Sulfate 0.1MG/Ml Inj) 0.5 mg ONE PRN IV 06/05/16 16:15 07/05/16 16:14 Ondansetron HCl (Zofran Inj) 4 mg Q6H PRN IV 06/05/16 16:15 07/05/16 16:14 Acetaminophen (Tylenol Tab) 650 mg Q4H PRN PO 06/05/16 16:15 07/05/16 16:14 Morphine Sulfate (MoRPHine SULFATE INJ) 2 mg Q5M PRN IV 06/05/16 16:15 06/19/16 16:14 Diphenhydramine HCl (Benadryl Inj) 50 mg QID PRN IV 06/06/16 10:00 07/06/16 09:59 Atorvastatin Calcium (Lipitor Tab) 80 mg QAM PO 06/07/16 09:00 07/07/16 08:59 Clopidogrel Bisulfate (plAVix TAB) 75 mg QAM PO 06/07/16 09:00 07/07/16 08:59 06/07/16 07:59 75 MG Nitroglycerin 0.4 mg 0.4 mg PRN PRN SL 06/06/16 15:45 07/06/16 15:44 Heparin Sodium/ Dextrose (Heparin 25,000 Unit/500ml D5W) 500 ml @ 26 mls/hr [id number] PRN IV 06/07/16 09:30 07/07/16 09:29 06/07/16 09:58 26 MLS/HR Review of Systems Constitutional: No chills, No fever, No sweats Eyes: No worsening of vision Respiratory: No cough, No hemoptysis, No shortness of breath Cardiovascular: No chest pain, No palpitations Abdomen: No nausea, No pain, No vomiting Musculoskeletal: No joint pain, No muscle pain Genitourinary - Male: No dysuria Neurologic: No numbness/tingling, No weakness Hematologic / Lymphatic: + clotting problems (See HPI), No abnormal bleeding/ bruising Integumentary: No rash Physical Exam Date Time Temp Pulse Resp B/P Pulse Ox O2 Delivery O2 Flow Rate FiO2 06/07/16 07:38 37.4 60 18 128/77 96 06/07/16 04:00 99 Room Air 06/07/16 03:18 37.3 55 16 124/74 99 Room Air 06/06/16 23:59 98 Room Air 06/06/16 23:14 37.5 63 18 138/83 98 Room Air 06/06/16 20:00 96 Room Air 06/06/16 19:28 36.8 58 18 124/81 98 06/06/16 16:00 96 Room Air 06/06/16 15:58 37.3 61 18 133/84 96 Room Air 06/06/16 12:13 Room Air 06/06/16 11:56 36.6 55 20 121/56 98 Room Air 06/06/16 11:40 36.9 54 20 109/63 100 Room Air General Appearance: WD/WN (Fit and athletic-appearing), no apparent distress Head: normocephalic, atraumatic Eyes: EOMI ENT: hearing grossly normal, pharynx normal Respiratory/Chest: chest non-tender, lungs clear Cardiovascular: regular rate, rhythm, no murmur Abdomen/GI: normal bowel sounds, non tender, soft Extremities/Musculoskelatal: normal inspection, no pedal edema Neurologic/Psych: no motor/sensory deficits, alert, oriented x 3 Skin: warm/dry, no rash Lymphatic: no adenopathy Laboratory Results Last 24 Hours Test 06/06/16 14:24 06/06/16 20:03 06/06/16 21:42 06/07/16 02:01 Troponin I 0.684 ng/ml 1.240 ng/ml 4.200 ng/ml Creatine Kinase MB 10.3 ng/ml Creatine Kinase MB Ratio Test 06/07/16 05:00 06/07/16 09:50 06/07/16 10:20 06/07/16 11:21 White Blood Count 12.82 K/uL Red Blood Count 4.25 M/uL Hemoglobin 14.2 g/dL Hematocrit 40.1 % Mean Corpuscular Volume 94.4 fL Mean Corpuscular Hemoglobin 33.4 pg Mean Corpuscular Hemoglobin Concent 35.4 g/dl Platelet Count 199 K/uL Mean Platelet Volume 10.0 fL Neutrophils (%) (Auto) 73.4 % Lymphocytes (%) (Auto) 18.2 % Monocytes (%) (Auto) 5.7 % Eosinophils (%) (Auto) 2.3 % Basophils (%) (Auto) 0.1 % Neutrophils # (Auto) 9.42 K/uL Lymphocytes # (Auto) 2.33 K/uL Monocytes # (Auto) 0.73 K/uL Eosinophils # (Auto) 0.29 K/uL Basophils # (Auto) 0.01 K/uL RDW Standard Deviation 45.0 fL RDW Coefficient of Variation 13.0 % Immature Granulocyte % (Auto) 0.3 % Immature Granulocyte # (Auto) 0.04 K/uL Activated Partial Thromboplast Time 25.4 SECONDS 24.6 SECONDS Partial Thromboplastin Ratio 1.0 0.9 Sodium Level 143 mmol/L Potassium Level 3.9 mmol/L Chloride Level 108 mmol/L Carbon Dioxide Level 26 mmol/L Anion Gap 9.0 mmol/L Blood Urea Nitrogen 6 mg/dl Creatinine 1.00 mg/dl Est Creatinine Clear Calc Drug Dose 89.3 ml/min Estimated GFR () 102.0 Estimated GFR (Non- 88.0 BUN/Creatinine Ratio 5.9 Random Glucose 90 mg/dl Calcium Level 8.8 mg/dl Prothrombin Time 11.5 SECONDS Prothromb Time International Ratio 1.1 Total Creatine Kinase 400 U/L Creatine Kinase MB 24.9 ng/ml Creatine Kinase MB Ratio 6.2 Troponin I 6.880 ng/ml Assessment & Plan Mr. Bustamante is a 51 year old gentleman with a history of coronary artery disease, as described above. He was admitted with an VA secondary to non- compliance with his anti-platelet agents. He was found to have thrombosis in his previously stented RCA. A drug-eluting stent was placed two days ago but during the procedure, it was noted that thrombus was forming. It was cleared and the residual stenosis was 0-10%, but his cell room supervisor asked me to comment on possible hypercoagulability as an explanation for his CAD. His story is somewhat unusual. He is awfully young for this degree of CAD, particularly in the absence of other risk factors. He has no family history of CAD or vascular disease and only a modest smoking history. Some of the inherited thrombophilias can pose a very modest risk of arterial thrombosis, though it would be highly unusual to diagnose one of these disorders based on arterial clots without an attendant history of venous thromboembolism, which is far more common in these states. Still, testing for factor V Leiden and prothrombin gene mutation is not unreasonable. He is on heparin, so testing for protein C or S deficiency would be misleading. In addition, antiphospholipid antibody syndrome can lead to arterial thrombosis, so checking for anti- phospholipid antibodies would be appropriate. Finally, hyperhomocysteinemia is a risk factor for arterial thrombosis and CAD. This would be a partially reversible phenomenon if identified, so testing is reasonable. There is not generally a role for full-dose anticoagulation in patients with hypercoagulable states and it is not clear that he has had a thrombotic event while on his antiplatelet agents. The event during his angiogram could easily have been triggered by the procedure itself. I spoke with his resident and attending and they will order the above listed studies. Some of them will not result until after his hospital stay, so I can see him as an outpatient to review the results.
--- NOTE | 2016-06-07 12:20 | Procedure Note ---
Pre-Mod Sedation Assessment General Date of Moderate Sedation: Jun 07, 2016. Vital Signs: Vital Signs Past 12 Hours Date Time Temp Pulse Resp B/P Pulse Ox O2 Delivery O2 Flow Rate FiO2 06/07/16 12:04 37.0 64 20 131/63 96 06/07/16 07:38 37.4 60 18 128/77 96 06/07/16 04:00 99 Room Air 06/07/16 03:18 37.3 55 16 124/74 99 Room Air Review Cardiovascular: regular rate, rhythm Abdomen: normal bowel sounds, non tender, soft Lungs: lungs clear Pre-Sedation Airway Assessment Oral Cavity: WNL Able to Visualize Vocal Cords: Yes Short Thick Neck: No Hx of Sleep Apnea: No Smoking Status: Former Smoker Mallampati Classification: Class II ASA Classification: Class II Procedure Planning Contraindications-for Mod Sed: None Yes Notes The planned sedation has been discussed with the patient and consent obtained. I have identified the patient, determined the appropriateness of sedation and have assessed the patient immediately prior to the procedure. All medicine(s) and interventions are by my order.
[2016-06-07] MEDS ORDERED: NiCARDipine HCL INJ 2.5 MG/ML 10 ML AMP ONE (12:24)
[2016-06-07] MEDS ORDERED: HEPARIN SOD (PORCINE) 1000 UNIT/ML 10 ML VIAL ONE (12:25)
[2016-06-07] MEDS ORDERED: FENTANYL CITRATE INJ 50 MCG/1 ML 2 ML VIAL ONE (12:26)
[2016-06-07] MEDS ORDERED: NITROGLYCERIN/D5W 100MCG/ML 20ML SYR ONE (12:26)
[2016-06-07] MEDS ORDERED: MIDAZOLAM HCL 1 MG/ML 2ML VIAL ONE (12:26)
[2016-06-07] MEDS ORDERED: EPTIFIBATIDE 0.75 MG/ML 75MG VIAL IV ONE (12:51)
[2016-06-07] MEDS ORDERED: EPTIFIBATIDE 2 MG/ML 10 ML VIAL IV ONE (12:51)
[2016-06-07] MEDS ORDERED: CLOPIDOGREL BISULFATE 300 MG TAB PO ONE (15:08)
[2016-06-07] MEDS ORDERED: EPTIFIBATIDE BOLUS / DRIP IV ONE (15:15)
[2016-06-07] MEDS ORDERED: SODIUM CHLORIDE 0.9% 1000ML 1,000 ML IV SCH (15:15)
[2016-06-07] MEDS ORDERED: ONDANSETRON INJ 2 MG/ML 2 ML VIAL IV PRN (15:15)
--- NOTE | 2016-06-07 15:58 | Cardiac Catheterization ---
Procedure Note Procedure Date Jun 07, 2016. Pre-Procedure Diagnosis Non STEMI AUC Score 9 Post-Procedure Diagnosis Severe CAD Procedure(s) Performed Coronary Angiography, IVUS Hairspring Staker Dr. Wyatt Regional Environmental Manager(s) Kendy Estimated Blood Loss 25 Medication(s) Clopidogrel, Fentanyl, Heparin, Integrilin, Nicardipine, Nitroglycerin, Versed, Lidocaine 1% Summary of Findings Indication: NSTEMI Access: 6Fr Right Radial Artery Catheters: Manson, ALR guide Findings: LM - Angioigraphically normal LAD - Large caliber vessel that wraps around apex. Mid LAD 40% stenosis. Circumflex - Very large caliber vessel with only luminal irregularities RCA - Dominant, proximal to mid RCA stent with 40% in-stent restenosis angiographically. 100% occluded distal RCA at the proximal aspect of previously placed stent. Arterial Closure: TR Band PCI: Antithrombotic therapy: Heparin, Integrilin Procedure: Distal RCA occlusion difficult to wire suggestive of organized clot. Eventually able to pass a whisper wire in a 2.0 OTW balloon through distal stents into PDA. Lesion predilated with 2.0 and 3.0 compliant balloons. IVUS of distal stent showed significant intra-stent thrombus and suggestion of proximal edge dissection. 3.0 x 18 Resolute BENITEZ overlapped with proximal aspect of prior distal stent. Stents post-dilated with 3.5 NC TREK balloon IVUS of mid RCA stent showed minimal instent restenosis. Proximal aspect underexpanded with 40-50% stenosis just proximal to stent. Proximal aspect of mid RCA stent dilated with 3.5 NC balloon. Nitroglycerin/nicardipine given for vasospasm, slow reflow Post procedure AMISHA 3 flow, stent well expanded and minimal residual distal RCA stenosis. Suggestion of non-flow limiting mid PDA dissection. Summary: 1. Sub-acute stent thrombosis of distal RCA stent 2. Successful IVUS-guided PCI of distal RCA with placement of 1 additional overlapping BENITEZ (Resolute 3.0 x 18, post-dilated to 3.5) Recommendations: Transfer back to telemetry Continue Integrilin for 18 hours Reloaded with plavix 300 mg Continue DAPT indefinitely. Consider re-trial of ticagrelor Hemodynamics Rest Ao: 114/84/99 Final Ao: 102/73/87 LV: n/a Recommendations PCI without planned CABG Specimens None Radiation Exposure (mGy) 6751 Contrast (mls) 180 Fluids (cc crystalloids) 285 Drains none Anesthesia moderate Procedural Complication(s) None Disposition PCU ACC Data Cardiac Status Clinical evaluation leading to the procedure CAD Presntation: Non STEMI Anginal Classification: CCS IV Heart Failure: No, NYHA Class: CCS I Cardiogenic Shock w/in 24Hrs: No Cardiac Arrest w/in 24Hrs: No Imaging studies past 6 months: Yes Stress studies past 6 months: No Standard Exercise Stress Test: No Stress Echocardiogram: No Stress Testing w/SPECT MPI: No Cardiac CTA: No Coronary Anatomy Dominant: Right Left Main (% Stenosis): Normal LAD (% Stenosis): Mid (40%) Circumflex (% Stenosis): Normal RCA (% Stenosis): Mid (40-50%), Distal (100% sub-acute stent thrombosis) Diagnostic Physician's Name: Donal Wyatt MD Status: Urgent Closure Device Percutaneous Entry Location: Radial Closure Device: Radial Band Recommendations: PCI without planned CABG PCI Indication: PCI for high risk Non-STEMI Lesion Segment Name: Distal RCA Culprit Artery: Yes Stenosis Prior to Rx (%): 100 Chronic Total Occlusion: No IVUS: Yes FFR: No Ratio: less than or equal to 0.75% Pre-Procedure AMISHA Flow: 0 Previously Treated Lesion: Yes Treated Lesion: Timeframe: less than 1 month Treated with Stent: Yes In-Stent Restenosis: No In-Stent Thrombosis: Yes Stent Type: BENITEZ Lesion Complexity: High/C Lesion Length (mm): 15 Thrombus Present: Yes Bifurcation Lesion: No Guidewire Across Lesion: Yes Guidewire: Stenosis Post-Procedure (%): 0 Post-Procedure AMISHA Flow: 3 Device(s) Deployed: Yes Type of Device(s): 3.0 x 18 Resolute BENITEZ Intraprocedure Events Significant Dissection: Yes (Non-flow limiting dissection in PDA) Perforation: No
[2016-06-07] MEDS ORDERED: NURSING VERBAL MED ORDER ONE ×2 (16:15→22:15)
[2016-06-07] MEDS: EPTIFIBATIDE INJ 75 MG PREMIXED IV SCH (18:22)
--- NOTE | 2016-06-07 20:24 | Family Medicine Progress Note ---
Progress Note Date of Service Jun 07, 2016. Subjective Pt evaluation today including: conversation w/ patient, conversation w/ family , physical exam, chart review, lab review Patient currently asymptomatic, however, overnight he did have two episodes of chest pain which lasted 25-30 minutes each at 9pm and 1:30pm. The episodes were not associated with dyspnea, nausea or diaphoresis. There was no radiation of pain into the jaw/arm/back, and the symptoms resolved without intervention. He was even walking at the time without exertional symptoms. Patient has been elevated his troponin has become further elevated and cardiology is recommended re-catheterization. This is making the patient both anxious and frustrated. He is otherwise well, tolerating diet, sleeping well, no issues with urination or bowel movements. He also states the burning sensation in his skin has resolved since stopping the medication. Constitutional: No chills, No fatigue, No fever, No sweats, No weakness Respiratory: No cough, No dyspnea at rest, No dyspnea on exertion, No wheezing Cardiovascular: + chest pain, No PND, No edema, No orthopnea, No palpitations Abdomen: No GI bleeding, No constipation, No diarrhea, No nausea, No pain, No vomiting Male : No dysuria Neurologic: No balance problems, No numbness/tingling Heme: No abnormal bleeding/bruising, No clotting problems Skin: No itch, No new/changing skin lesions, No rash Objective Vital Signs Date Time Temp Pulse Resp B/P Pulse Ox O2 Delivery O2 Flow Rate FiO2 06/07/16 19:57 36.9 58 16 133/86 98 Room Air 06/07/16 17:30 37.7 66 18 122/69 97 Room Air 06/07/16 17:07 37.1 72 20 126/83 97 Room Air 06/07/16 16:36 37.0 63 133/84 99 Room Air 06/07/16 16:13 37.2 60 21 135/78 99 Room Air 06/07/16 16:07 37.0 64 20 139/84 99 Room Air 06/07/16 16:00 Room Air 06/07/16 15:42 37.0 66 17 125/73 99 Room Air 06/07/16 15:25 62 16 124/67 98 Room Air 06/07/16 15:08 62 16 135/67 98 Room Air 06/07/16 12:04 37.0 64 20 131/63 96 1/27/17 08:00 Room Air 06/07/16 07:38 37.4 60 18 128/77 96 06/07/16 04:00 99 Room Air 06/07/16 03:18 37.3 55 16 124/74 99 Room Air 06/06/16 23:59 98 Room Air 06/06/16 23:14 37.5 63 18 138/83 98 Room Air Physical Exam General Appearance: WD/WN, no apparent distress Neck: supple, no JVD Respiratory/Chest: chest non-tender, lungs clear, normal breath sounds, no respiratory distress Cardiovascular: regular rate, rhythm, no edema, no murmur Abdomen: normal bowel sounds, non tender, soft, no organomegaly Extremities: no pedal edema, no calf tenderness Neurologic/Psychiatric: alert, oriented x 3, + depressed affect Skin: normal color, warm/dry, no rash Laboratory Results Results Past 24 Hours Test 06/06/16 21:42 06/07/16 02:01 06/07/16 05:00 06/07/16 09:50 Range/Units Creatine Kinase MB Ratio 0-3.0 Troponin I 4.200 0-0.045 ng/ml White Blood Count 12.82 4.8-10.8 K/uL Red Blood Count 4.25 4.7-6.1 M/uL Hemoglobin 14.2 14.0-18.0 g/dL Hematocrit 40.1 42-52 % Mean Corpuscular Volume 94.4 80-100 fL Mean Corpuscular Hemoglobin 33.4 25-34 pg Mean Corpuscular Hemoglobin Concent 35.4 32-36 g/dl Platelet Count 199 130-400 K/uL Mean Platelet Volume 10.0 7.4-10.4 fL Neutrophils (%) (Auto) 73.4 % Lymphocytes (%) (Auto) 18.2 % Monocytes (%) (Auto) 5.7 % Eosinophils (%) (Auto) 2.3 % Basophils (%) (Auto) 0.1 % Neutrophils # (Auto) 9.42 1.4-6.5 K/uL Lymphocytes # (Auto) 2.33 1.2-3.4 K/uL Monocytes # (Auto) 0.73 0.11-0.59 K/uL Eosinophils # (Auto) 0.29 0-0.5 K/uL Basophils # (Auto) 0.01 0-0.2 K/uL RDW Standard Deviation 45.0 36.4-46.3 fL RDW Coefficient of Variation 13.0 11.5-14.5 % Immature Granulocyte % (Auto) 0.3 % Immature Granulocyte # (Auto) 0.04 0.00-0.02 K/uL Activated Partial Thromboplast Time 25.4 24.6 21.0-31.0 SECONDS Partial Thromboplastin Ratio 1.0 0.9 Sodium Level 143 136-145 mmol/L Potassium Level 3.9 3.5-5.1 mmol/L Chloride Level 108 98-107 mmol/L Carbon Dioxide Level 26 21-32 mmol/L Anion Gap 9.0 3-11 mmol/L Blood Urea Nitrogen 6 7-18 mg/dl Creatinine 1.00 0.60-1.40 mg/dl Est Creatinine Clear Calc Drug Dose 89.3 ml/min Estimated GFR () 102.0 Estimated GFR (Non- 88.0 BUN/Creatinine Ratio 5.9 10-20 Random Glucose 90 70-99 mg/dl Calcium Level 8.8 8.5-10.1 mg/dl Prothrombin Time 11.5 9.0-12.0 SECONDS Prothromb Time International Ratio 1.1 0.9-1.1 Test 06/07/16 10:20 06/07/16 12:58 06/07/16 14:20 06/07/16 14:52 Range/Units Total Creatine Kinase 400 39-308 U/L Creatine Kinase MB 24.9 0.5-3.6 ng/ml Creatine Kinase MB Ratio 6.2 0-3.0 Troponin I 6.880 0-0.045 ng/ml Kaolin Activated Coagulation Time 245 168 266 94-140 SECONDS Test 06/07/16 16:26 06/07/16 19:58 Range/Units Troponin I 9.250 0-0.045 ng/ml Assessment and Plan 51 year old male presents to ED with atypical chest pain and elevated troponin indicative of NSTEMI on a background of CAD s/p RCA PCI x2 (2012) as well as mid LAD STEMI followed by aspiration thrombectomy (2014). Underwent PCI x 2. NSTEMI - Presented with atypical chest pain - EKG showed sinus rhythm with inferior Q-waves suggesting prior infarct. There were minor ST elevations in the inferior leads, once again with Q-waves present. - Troponin trended: 0.02 --> 1.70 --> 1.92 - Patient started on a heparin drip per protocol. - Cardio consulted. Recommend continuing aspirin and Plavix as well as heparin drip per protocol. Recommend low dose lisinopril. Continue statin therapy, Atorvastatin 80mg daily given his history. Avoid b-sriram given bradycardia. - Cardiac cath performed 06/05 showin. Severe CAD and thrombus formation within the distal RCA, including proximal distal RCA stent. 2. Nonobstructive CAD within mid LAD and proximal to mid RCA stent. 3. Normal LVEDP. 4. No aortic stenosis. - PCI was deployed in to the distal RCA x2 drug-eluting stents. There was noted formation of small thrombus in the mid RCA and probable occlusion of a very small caliber side branch arising from the distal RCA - it was decided for medical management - Patient was given a loading dose of 180 milligrams of Ticagrelor post PC with IV Integrilin x at least 24 hours and plans for postprocedure EKGs, and cardiac enzymes - Repeat echo showed: Normal left ventricular size and systolic function. EF 55-60% with akinesis of the inferior base. Mild concentric left ventricular hypertrophy. Type 1 diastolic dysfunction. Mildly dilated right ventricle with normal systolic function. Hypermobile interatrial septum with probable small PFO. No significant valvular abnormalities visualized. 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 PCI of distal RCA with placement of 1 additional overlapping drug-eluting stent performed - Patient started on Integrilin x 18hours, Plavix 300 mg HTN - Patient started on low dose Lisinopril 2.5 mg - May need to titrate Allergic reaction - Itching and burning felt on patient's groin and upper thighs - similar to reaction with Effient use, although this time, without desquamation thus far - Patient given diphenhydramine 50mg IV for allergic skin reaction to ticagrelor. - Symptoms resolved. - Ticagrelor discontinued. Recurrent coronary thrombi - No family history of thrombus and has not had any thrombus noted in other vessels - Patient does have large coronary vessels and therefore with slower flow, but cardiology keen to rule out clotting disorder. - Hematology consulted. Believe event during his angiogram could easily have been triggered by the procedure itself and not generally a role for full-dose anticoagulation in patients with hypercoagulable states and it is not clear that he has had a thrombotic event while on his antiplatelet agents. Recommend testing for factor V Leiden, prothrombin gene mutation, antiphospholipid antibody syndrome, and hyperhomocysteinemia. On heparin, so testing for protein C or S deficiency would be misleading DVT prophylaxis - Heparin Dispo - Full code - Telemetry Resident Physician Supervision Note: I interviewed and examined the patient. Discussed with Dr. De La Cruz and agree with findings and plan as documented in the note. Any exceptions or clarifications are listed here: None Documented By: Kiko Mota feeling OK now, just frustrated with being a patient. seen prior to going back to cath - no further chest pain. reviewed changes, labs, plans, etc. dw cardiology and hematology nad, vitals noted, breathing unlabored, no accessory muscles, reg rhythm. labs noted - trop increased to 6 NSTEMI - for repeat cath - (EKGs actually look better than prior, however. questionable "ST elevation" never reached >1mm, and most recent tracings actually better) continue aggressive med management. hematology suggested labs to screen for possible hypercoag states that could affect arterial flow - noting that these are unlikely but possible - and did not feel there would be clear benefit to systemic anticoagulation. otherwise as above Continued [facility] stay due to: multiple IV medications needed, home environment unsafe for pt
[2016-06-08] MEDS: NITROGLYCERIN OINT 2% 1GM PACKET EXT SCH ×5 (01:00→23:55)
[2016-06-08] MEDS: EPTIFIBATIDE INJ 75 MG PREMIXED IV SCH ×2 (02:32→10:47)
[2016-06-08 04:05] VITALS: BP 132/93; PULSE 71; TEMP 37.1; O2SAT 95
[2016-06-08 04:28] LABS: BASO % 0.1 %; BASO ABS # 0.01 K/uL (0-0.2); COMPLETE YES; EOS % 2.3 %; HEMATOCRIT 41.2 % (42-52); IG% 0.2 %; LYMPH % 19.9 %; LYMPH ABS # 2.47 K/uL (1.2-3.4); MEAN CELL VOLUME 94.7 fL (80-100); MEAN CORPUSCULAR HEMOGLOBIN 33.1 pg (25-34); MONO % 7.5 %; PLATELET COUNT 223 K/uL (130-400); RED BLOOD COUNT 4.35 M/uL (4.7-6.1); WHITE BLOOD COUNT 12.43 K/uL (4.8-10.8)
[2016-06-08 04:45] LABS: BUN/CREATININE RATIO 4.1 (10-20); CALCIUM 8.8 mg/dl (8.5-10.1); POTASSIUM 4.1 mmol/L (3.5-5.1)
[2016-06-08] MEDS: ACETAMINOPHEN 325 MG TAB PO PRN (06:26)
[2016-06-08 07:51] VITALS: BP 137/86; PULSE 57; TEMP 37.2; O2SAT 97
[2016-06-08] MEDS: LISINOPRIL 2.5 MG TAB PO SCH (08:36)
[2016-06-08] MEDS: CLOPIDOGREL BISULFATE 75 MG TAB PO SCH (08:36)
[2016-06-08] MEDS: ATORVASTATIN 40 MG TAB PO SCH (08:37)
[2016-06-08] MEDS: ASPIRIN 81 MG ECTAB PO SCH (08:37)
[2016-06-08] MEDS ORDERED: Integrelin infusion --> STOP ORDER ONE (09:00)
--- NOTE | 2016-06-08 10:10 | CARDIOLOGY PROGRESS NOTE ---
DATE: 06/08/2016 DATE: 06/08/2016. TIME: 9:25 a.m. SUBJECTIVE: He did not have any further angina, but did have some epigastric discomfort overnight. He states that this is different than his angina and also in a different location. It occurred a couple of times overnight, lasted approximately 30 minutes or so. It was only at rest. He is able to ambulate in the hallways without exertional symptoms. Denies orthopnea, syncope, near syncope, or palpitations. Denies bleeding such as melena, hematochezia or hematuria. There is no significant complaint from his right radial cath site. OBJECTIVE: VITAL SIGNS: Temperature 37.2 degrees, heart rate 57 beats per minute, respiration rate 18, blood pressure 137/86 mmHg, oxygen saturation 97% on room air, weight 85.9 kg. GENERAL: No acute distress. He is alert. NECK: No JVD. CARDIAC EXAMINATION: No ventricular heave, regular, normal S1, S2, no murmurs, rubs or gallops auscultated. LUNGS: Clear to auscultation bilaterally without wheezes, rales or rhonchi. ABDOMEN: Soft, nontender, nondistended, normoactive bowel sounds, no palpable masses epigastric area. EXTREMITIES: 2+ right radial pulse. Right radial catheterization site is clean, dry and intact without erythema or discharge, no cyanosis or edema. PSYCHIATRIC: Affect appears appropriate. MEDICATIONS: Include aspirin 81 mg daily, Integrilin which will be discontinued at this time, Plavix 75 mg daily, Lisinopril 2.5 mg daily. LABORATORY DATA: White blood cell count 12.4, hemoglobin 14.4, platelets 223. Sodium 141, potassium 4.1, BUN 4, creatinine 1. Troponin peaked at 9.25 and has since trended downward to 4.21. Telemetry personally reviewed. No arrhythmia. ECG from 06/07/2016 at 2152 demonstrated sinus rhythm with inferior T-wave inversion and anterolateral T-wave abnormality. Repeat ECG this morning will be ordered at this time. Cardiac catheterization performed yesterday demonstrated a distal RCA occlusion due to thrombus formation. IVUS of the distal stent showed showed significant intrastent thrombosis and suggestion of proximal edge dissection. A 3 mm x 18 mm Resolute drug-eluting stent overlapped with proximal aspect of prior distal RCA stent. Stents were then post-dilated with a 3.5 noncompliant balloon. IVUS of the mid RCA stent showed minimal in-stent restenosis and the proximal aspect was under expanded with 40-50% stenosis just proximal to the stent. The proximal aspect of the mid RCA stent was then dilated with a 3.5 noncompliant balloon. ECHOCARDIOGRAM: He had a limited echocardiogram today. Final report to follow, but images were personally reviewed and upon preliminary review LV systolic function remains normal. There is a small RCA wall motion abnormality involving the septal base and inferior base. ASSESSMENT AND PLAN: 1. Acute non-ST elevation myocardial infarction: Continue to have thrombus burden yesterday and underwent stent placement as noted above by Dr. Wyatt. He tolerated the procedure well. No clear angina following this event. Continue aspirin 81 mg daily indefinitely. Continue Plavix 75 mg daily indefinitely. Cardiac rehabilitation recommended. Increase lisinopril to 5 mg daily. Resting bradycardia and therefore beta sriram therapy has not been started. Continue high intensity statin therapy. 2. Coronary artery disease: He does have nonobstructive CAD as noted on coronary angiography reports. Continue high intensity statin therapy, antiplatelet therapy and SHELBY inhibitor. 3. Hypertension: Blood pressure adequately controlled. Lisinopril will be titrated as above due to acute OK. 4. Thrombus formation in coronary vasculature: Appreciate hematology consultation. Unlikely that he has underlying clotting disorder; however, full evaluation is still pending as laboratory data is not yet available. 5. Possible allergic reaction: He reported pruritic and burning skin changes after being started on Brilinta. He is doing better now on Plavix. 6. Bradycardia: Asymptomatic. Not on beta sriram secondary to resting bradycardia. 7. Disposition: Recommend serial troponins today given the fact that he did have atypical discomfort overnight, different than prior angina. This was discussed with hospitalist service, Dr. De La Cruz. Cardiology will continue to follow.
[2016-06-08] MEDS ORDERED: LISINOPRIL 2.5 MG TAB PO ONE (10:30)
--- NOTE | 2016-06-08 10:31 | Family Medicine Progress Note ---
Progress Note Date of Service Jun 08, 2016. Subjective Pt evaluation today including: conversation w/ patient, physical exam Patient says that he did not have any further chest pain, but he but did have some epigastric discomfort overnight. It felt different from previous pain in character and also it was in a different location. It occurred intermittently overnight, each episode lasting ~30min, his last episode being at 3:30am. Symptoms occurred while at rest, not associated with dyspnea, diaphoresis or nausea It was only at rest, lasted approximately 30 minutes or so. No exacerbated by ambulation. Denies history of GERD. Currently patient asymptomatic. Eating well, tolerating diet. Didn't sleep secondary to discomfort. No pain in right wrist at radial cath site. Constitutional: + fatigue, No chills, No fever, No sweats Respiratory: No cough, No dyspnea at rest, No dyspnea on exertion Cardiovascular: No PND, No chest pain, No edema, No orthopnea, No palpitations Abdomen: + pain, No constipation, No diarrhea, No nausea, No vomiting Male : No dysuria Skin: No itch, No rash Objective Vital Signs Date Time Temp Pulse Resp B/P Pulse Ox O2 Delivery O2 Flow Rate FiO2 06/08/16 07:51 37.2 57 18 137/86 97 Room Air 06/08/16 04:05 37.1 71 22 132/93 95 Room Air 06/08/16 04:02 Room Air 06/08/16 00:02 Room Air 06/07/16 23:46 37.4 58 20 115/71 98 Room Air 06/07/16 21:55 65 18 141/82 99 Room Air 06/07/16 20:04 Room Air 06/07/16 19:57 36.9 58 16 133/86 98 Room Air 06/07/16 17:30 37.7 66 18 122/69 97 Room Air 06/07/16 17:07 37.1 72 20 126/83 97 Room Air 06/07/16 16:36 37.0 63 133/84 99 Room Air 06/07/16 16:13 37.2 60 21 135/78 99 Room Air 06/07/16 16:07 37.0 64 20 139/84 99 Room Air 06/07/16 16:00 Room Air 06/07/16 15:42 37.0 66 17 125/73 99 Room Air 06/07/16 15:25 62 16 124/67 98 Room Air 06/07/16 15:08 62 16 135/67 98 Room Air 06/07/16 12:04 37.0 64 20 131/63 96 Physical Exam General Appearance: WD/WN, no apparent distress Neck: supple, no adenopathy, no JVD Respiratory/Chest: chest non-tender, lungs clear, normal breath sounds, no respiratory distress Cardiovascular: regular rate, rhythm, no edema, no murmur Abdomen: normal bowel sounds, non tender, soft Extremities: normal inspection, no pedal edema, no calf tenderness Neurologic/Psychiatric: alert, normal mood/affect, oriented x 3 Skin: normal color, warm/dry, no rash Laboratory Results Results Past 24 Hours Test 06/07/16 12:58 06/07/16 14:20 06/07/16 14:52 06/07/16 16:26 Range/Units Kaolin Activated Coagulation Time 245 168 266 94-140 SECONDS Troponin I 9.250 0-0.045 ng/ml Test 06/07/16 19:58 06/08/16 02:24 06/08/16 04:15 06/08/16 09:13 Range/Units Troponin I 7.940 4.210 0-0.045 ng/ml White Blood Count 12.43 4.8-10.8 K/uL Red Blood Count 4.35 4.7-6.1 M/uL Hemoglobin 14.4 14.0-18.0 g/dL Hematocrit 41.2 42-52 % Mean Corpuscular Volume 94.7 80-100 fL Mean Corpuscular Hemoglobin 33.1 25-34 pg Mean Corpuscular Hemoglobin Concent 35.0 32-36 g/dl Platelet Count 223 130-400 K/uL Mean Platelet Volume 10.0 7.4-10.4 fL Neutrophils (%) (Auto) 70.0 % Lymphocytes (%) (Auto) 19.9 % Monocytes (%) (Auto) 7.5 % Eosinophils (%) (Auto) 2.3 % Basophils (%) (Auto) 0.1 % Neutrophils # (Auto) 8.71 1.4-6.5 K/uL Lymphocytes # (Auto) 2.47 1.2-3.4 K/uL Monocytes # (Auto) 0.93 0.11-0.59 K/uL Eosinophils # (Auto) 0.28 0-0.5 K/uL Basophils # (Auto) 0.01 0-0.2 K/uL RDW Standard Deviation 45.6 36.4-46.3 fL RDW Coefficient of Variation 13.0 11.5-14.5 % Immature Granulocyte % (Auto) 0.2 % Immature Granulocyte # (Auto) 0.03 0.00-0.02 K/uL Activated Partial Thromboplast Time 25.0 21.0-31.0 SECONDS Partial Thromboplastin Ratio 1.0 Sodium Level 141 136-145 mmol/L Potassium Level 4.1 3.5-5.1 mmol/L Chloride Level 106 98-107 mmol/L Carbon Dioxide Level 25 21-32 mmol/L Anion Gap 10.0 3-11 mmol/L Blood Urea Nitrogen 4 7-18 mg/dl Creatinine 1.00 0.60-1.40 mg/dl Est Creatinine Clear Calc Drug Dose 89.7 ml/min Estimated GFR () 102.0 Estimated GFR (Non- 88.0 BUN/Creatinine Ratio 4.1 10-20 Random Glucose 94 70-99 mg/dl Calcium Level 8.8 8.5-10.1 mg/dl Test 06/08/16 09:40 Range/Units Assessment and Plan 51 year old male presents to ED with atypical chest pain and elevated troponin indicative of NSTEMI on a background of CAD s/p RCA PCI x2 (2012) as well as mid LAD STEMI followed by aspiration thrombectomy (2014). Underwent PCI x 2. NSTEMI - Presented with atypical chest pain - EKG showed sinus rhythm with inferior Q-waves suggesting prior infarct. There were minor ST elevations in the inferior leads, once again with Q-waves present. - Troponin trended: 0.02 --> 1.70 --> 1.92 - Patient started on a heparin drip per protocol. - Cardio consulted. Recommend continuing aspirin and Plavix as well as heparin drip per protocol. Recommend low dose lisinopril. Continue statin therapy, Atorvastatin 80mg daily given his history. Avoid b-sriram given bradycardia. - Cardiac cath performed 06/05 showin. Severe CAD and thrombus formation within the distal RCA, including proximal distal RCA stent. 2. Nonobstructive CAD within mid LAD and proximal to mid RCA stent. 3. Normal LVEDP. 4. No aortic stenosis. - PCI was deployed in to the distal RCA x2 drug-eluting stents. There was noted formation of small thrombus in the mid RCA and probable occlusion of a very small caliber side branch arising from the distal RCA - it was decided for medical management - Patient was given a loading dose of 180 milligrams of Ticagrelor post PC with IV Integrilin x at least 24 hours and plans for postprocedure EKGs, and cardiac enzymes - Repeat echo showed: Normal left ventricular size and systolic function. EF 55-60% with akinesis of the inferior base. Mild concentric left ventricular hypertrophy. Type 1 diastolic dysfunction. Mildly dilated right ventricle with normal systolic function. Hypermobile interatrial septum with probable small PFO. No significant valvular abnormalities visualized. - Patient agreeable to commence cardiac rehabilitation - Extensive time (60min) was spent discussing longterm preventative management including lifestyle behaviours, medication function and importance of compliance - Troponin trend continued: 1.92 --> 0.985 --> 0.684 --> 1.24 --> 4.2 --> 6.88 - -> 9.25 - Decided for re-catheterization which showed sub-acute stent thrombosis of distal RCA stent. PCI of distal RCA with placement of 1 additional overlapping drug-eluting stent performed - Patient started on Integrilin x 18hours, Plavix 300 mg - Troponin trending down 9.25 --> 7.94 --> 4.21 --> 3.99 -->2.52 - On discharge, follow up with cardiology in 2 weeks time HTN - Patient started on low dose Lisinopril 2.5 mg - Titrated up to 5mg daily Allergic reaction - Itching and burning felt on patient's groin and upper thighs - similar to reaction with Effient use, although this time, without desquamation thus far - Patient given diphenhydramine 50mg IV for allergic skin reaction to ticagrelor. - Symptoms resolved. - Ticagrelor discontinued. Recurrent coronary thrombi - No family history of thrombus and has not had any thrombus noted in other vessels - Patient does have large coronary vessels and therefore with slower flow, but cardiology keen to rule out clotting disorder. - Hematology consulted. Believe event during his angiogram could easily have been triggered by the procedure itself and not generally a role for full-dose anticoagulation in patients with hypercoagulable states and it is not clear that he has had a thrombotic event while on his antiplatelet agents. Recommend testing for factor V Leiden, prothrombin gene mutation, antiphospholipid antibody syndrome, and hyperhomocysteinemia. On heparin, so testing for protein C or S deficiency would be misleading On discharge, follow up with hematology in 4 weeks time to discuss results DVT prophylaxis - Heparin Dispo - Full code - Telemetry Resident Physician Supervision Note: I interviewed and examined the patient. Discussed with Dr. De La Cruz and agree with findings and plan as documented in the note. Any exceptions or clarifications are listed here: None Documented By: Kiko Mota feeling better. extensive discussion again. reviewed labs. answered all questions. no further chest pain vitals noted, nad, ambulatory, breathing unlabored NSTEMI and reocclusion - appearing to be doing well now. continue to follow. hopefully home tomorrow but low (almost zero) threshold to continue to observe given recent events, unless he's totally asymptomatic
[2016-06-08 11:57] VITALS: BP 153/98; PULSE 50; TEMP 36.4; O2SAT 99
[2016-06-08] MEDS ORDERED: NURSING VERBAL MED ORDER ONE (13:15)
[2016-06-08] MEDS ORDERED: ALUMINUM/MAGNESIUM SUSP 18 ML, LIDOCAINE HCL 2% VISCOUS SOLN 6 ML, BARCODE IDENTIFIER 1 EA PO ONE ×2 (13:45)
[2016-06-08] MEDS: PANTOprazole SOD 40 MG TAB PO SCH (15:15)
--- NOTE | 2016-06-08 15:35 | ECHOCARDIOGRAM REPORT ---
*NOTICE TO RECEIVING CONSTITUTION PARTY AGENCY This information is strictly Confidential and protected under [place] law. [place] law prohibits you from making any further disclosure of this information unless further disclosure is expressly permitted by the written consent of the person to whom it pertains or is authorized by law. A general authorization for the release of medical or other information is not sufficient for this purpose. Hospital accepts no responsibility if the information is made available to any other person, INCLUDING THE PATIENT. Interpretation Summary * Name: DAVID WHYTE Study Date: 06/08/2016 07:41 AM BP: 137/86 mmHg * Patient Location: 210 HR: 57 * : 1965 (M/d/yyyy) Gender: Male Height: 65 in * Age: 51 yrs Ethnicity: AA Weight: 188 lb * Performed By: Theodora Forte RDCS * * Reason For Study: EVAL WALL MOTION, FOLLOW UP, [place] * BSA: 1.9 m2 * History: [place], EVAL WALL MOTION * -- Conclusions -- * 1. Normal left ventricular size and systolic function. EF 55-60%. Akinesis of the septal base and inferior base. Other wall motion segments appear normal. Mild concentric left ventricular hypertrophy. * 2. Limited 2D echo with limited color Doppler, as per request. * 3. Compared to prior study on 06/05/2016, wall motion and LV systolic function are without significant change. Procedure Details * Left Ventricle Normal left ventricular size and systolic function. EF 55-60%. Akinesis of the septal base and inferior base. Other wall motion segments appear normal. Mild concentric left ventricular hypertrophy. * Right Ventricle Right ventricle not entirely well visualized but appears mildly dilated with normal systolic function visually. * Atria The left atrium is mildly dilated. Right atrial size is normal. * Mitral Valve The mitral valve leaflets appear normal. There is no evidence of stenosis, fluttering, or prolapse. Significant mitral regurgitation is absent. * Tricuspid Valve The tricuspid valve is not well visualized. * Aortic Valve The aortic valve opens well. Aortic valve appears structurally normal. * Pulmonic Valve The pulmonic valve is not well visualized. * Great Vessels The aortic root is normal size. * Pericardium/Pleural There is no pericardial effusion. * Great Vessels IVC not visualized. * * MMode 2D Measurements and Calculations * IVSd 1.2 cm * IVSs 1.9 cm * * LVIDd 4.8 cm * LVIDs 3.2 cm * LVPWd 1.2 cm * LVPWs 1.9 cm * * IVS/LVPW 1.0 * FS 33.9 % * EDV(Teich) 106.0 ml * ESV(Teich) 39.6 ml * EF(Teich) 62.7 % * * EDV(cubed) 108.6 ml * ESV(cubed) 31.4 ml * EF(cubed) 71.1 % * % IVS thick 59.4 % * % LVPW thick 59.6 % * * LV mass(C)d 213.3 grams * LV mass(C)dI 110.8 grams/m\S\2 * LV mass(C)s 252.1 grams * LV mass(C)sI 131.0 grams/m\S\2 * * SV(Teich) 66.4 ml * SI(Teich) 34.5 ml/m\S\2 * SV(cubed) 77.2 ml * SI(cubed) 40.1 ml/m\S\2 * * Ao root diam 3.4 cm * Ao root area 9.1 cm\S\2 * * LVAd ap4 35.4 cm\S\2 * LVLd ap4 8.7 cm * EDV(MOD-sp4) 120.1 ml * EDV(sp4-el) 122.8 ml * LVAs ap4 21.2 cm\S\2 * LVLs ap4 7.3 cm * ESV(MOD-sp4) 55.0 ml * ESV(sp4-el) 52.1 ml * EF(MOD-sp4) 54.2 % * EF(sp4-el) 57.6 % * * LVAd ap2 39.1 cm\S\2 * LVLd ap2 8.9 cm * EDV(MOD-sp2) 146.9 ml * EDV(sp2-el) 145.5 ml * LVAs ap2 20.8 cm\S\2 * LVLs ap2 6.6 cm * ESV(MOD-sp2) 61.1 ml * ESV(sp2-el) 56.1 ml * EF(MOD-sp2) 58.4 % * EF(sp2-el) 61.4 % * * LVLd %diff 3.1 % * EDV(MOD-bp) 131.8 ml * LVLs %diff -11.62 % * ESV(MOD-bp) 60.2 ml * EF(MOD-bp) 54.3 % * * SV(MOD-sp4) 65.1 ml * SI(MOD-sp4) 33.8 ml/m\S\2 * * SV(MOD-sp2) 85.8 ml * SI(MOD-sp2) 44.6 ml/m\S\2 * * SV(MOD-bp) 71.6 ml * SI(MOD-bp) 37.2 ml/m\S\2 * * SV(sp4-el) 70.8 ml * SI(sp4-el) 36.8 ml/m\S\2 * * SV(sp2-el) 89.4 ml * SI(sp2-el) 46.4 ml/m\S\2 * * *
[2016-06-08 16:39] VITALS: BP 138/98; PULSE 56; TEMP 36.9; O2SAT 99
[2016-06-08 20:39] VITALS: BP 132/88; PULSE 56; TEMP 36.8; O2SAT 98
[2016-06-09 00:23] VITALS: BP 99/78; PULSE 57; TEMP 37.1; O2SAT 97
[2016-06-09 05:13] VITALS: BP 112/70; PULSE 54; TEMP 36.9; O2SAT 96
[2016-06-09 05:32] LABS: HEMATOCRIT 38.4 % (42-52); MEAN CELL VOLUME 94.6 fL (80-100); MEAN CORPUSCULAR HEMOGLOBIN 33.7 pg (25-34); MEAN PLATELET VOLUME 9.9 fL (7.4-10.4); PLATELET COUNT 224 K/uL (130-400); RED BLOOD COUNT 4.06 M/uL (4.7-6.1); WHITE BLOOD COUNT 8.92 K/uL (4.8-10.8)
[2016-06-09 05:35] LABS: MEAN CORPUSCULAR HGB CONC 35.7 g/dl (32-36)
[2016-06-09] MEDS: NITROGLYCERIN OINT 2% 1GM PACKET EXT SCH (06:21)
[2016-06-09] MEDS: ASPIRIN 81 MG ECTAB PO SCH (07:48)
[2016-06-09] MEDS: PANTOprazole SOD 40 MG TAB PO SCH (07:48)
[2016-06-09] MEDS: CLOPIDOGREL BISULFATE 75 MG TAB PO SCH (07:49)
[2016-06-09] MEDS: ATORVASTATIN 40 MG TAB PO SCH (07:49)
[2016-06-09 07:50] VITALS: BP 128/85; PULSE 60; TEMP 37; O2SAT 98
--- NOTE | 2016-06-09 07:57 | CARDIOLOGY PROGRESS NOTE ---
DATE: 06/09/2016 TIME: 06:47 a.m. SUBJECTIVE: Yesterday, he had another episode of epigastric pain. He was given a GI cocktail, which immediately resolved his symptoms. He was then started on Protonix. He has not had any further epigastric discomfort. He also denies angina, syncope, near syncope, shortness of breath, palpitations or edema. He has not noted any bleeding. He took 34 laps around the nursing station last evening and states he has not had any chest discomfort. OBJECTIVE: VITAL SIGNS: Temperature 36.9 degrees, heart rate 54 beats per minute, respiratory rate 20, blood pressure 112/70 mmHg, and oxygen saturation 96% on room air. I's and O's even yesterday. Weight is 85.9 kg. GENERAL: No acute distress. He is alert. NECK: No JVD. CARDIAC EXAM: No ventricular heave. Regular, normal S1 and S2. No murmurs, rubs or gallops auscultated. LUNGS: Clear to auscultation bilaterally without wheezes, rales or rhonchi. ABDOMEN: Soft, nontender, and nondistended. Normoactive bowel sounds. EXTREMITIES: No cyanosis or edema. PSYCHIATRIC: Affect appears appropriate. MEDICATIONS: Include aspirin 81 mg daily, Plavix 75 mg daily, Lipitor 80 mg daily, lisinopril 5 mg daily, and Protonix 40 mg daily. Telemetry personally reviewed. No arrhythmias. LABORATORY DATA: White blood cell count is 8.92, hemoglobin 13.7, and platelets 224. Troponin continues to trend downward with his last troponin being 2.52 yesterday. ASSESSMENT AND PLAN: 1. Acute non-ST elevation myocardial infarction: He has had issues with thrombus formation while not on dual antiplatelet therapy. He has been angina free since his last PCI done on Friday, 2 days ago. Continue aspirin 81 mg daily indefinitely. Continue Plavix 75 mg daily indefinitely. Continue lisinopril 5 mg daily. Not on beta sriram due to resting bradycardia. Continue high intensity statin therapy. 2. Coronary artery disease: He is now status post PCI x3 in his RCA during this hospitalization. He had significant thrombus formation as noted previously. Continue dual antiplatelet therapy indefinitely as he has formed thrombus 1-2 weeks after discontinuing Plavix on 2 separate occasions, both in 2014 and May of 2016. Continue high intensity statin therapy and SHELBY inhibitor. 3. Hypertension: Blood pressure adequately controlled on lisinopril. 4. Thrombus formation in coronary vasculature: Hematology consultation appreciated. 5. Possible allergic reaction: HE IS ALLERGIC TO EFFIENT AND HAD SOME REACTION AFTER STARTING BRILINTA. He is convinced that Brilinta caused a reaction and therefore, he is back on Plavix. 6. Bradycardia: He is asymptomatic. No further evaluation in this regard. 7. Disposition: From a cardiac standpoint, can be discharged afternoon today. He should follow up with Dr. Steele, his primary clinical rehabilitation liaison, in 1-2 weeks. It has been a pleasure of caring for Mr. Bustamante. Sincerely,
[2016-06-09] MEDS ORDERED: LISINOPRIL 5 MG TAB PO SCH (09:00)
[2016-06-09] MEDS ORDERED: NTRSLP4 SL (09:45)
[2016-06-09] MEDS ORDERED: PRT40 PO (09:45)
[2016-06-09] MEDS ORDERED: LPT40 PO (09:45)
[2016-06-09] MEDS ORDERED: LSN5 PO (09:45)
--- NOTE | 2016-06-09 10:11 | Discharge Instructions ---
Discharge Instructions Admission Reason for Admission: Chest Pain, Elevated Blood Pressure Reading Discharge Discharge Diagnosis / Problem: NSTEMI s/p PCI x 2 Discharge Goals Goal(s): Improve disease control, Diagnostic testing, Therapeutic intervention Activity Recommendations Activity Limitations: resume your previous activity Instructions / Follow-Up Instructions / Follow-Up You were admitted to hospital with chest pain and your troponin levels were elevated, indicative of a myocardial infarction. Cardiac catheterization showed blockage of the right coronary artery. You underwent intervention with the insertion of two stents to open this blockage. However, during admission, your symptoms returned and your troponin bumped again, and so a subsequent cardiac catheterization was performed and a third stent was placed, helping to resolve your symptoms. Repeat echo showed: Normal left ventricular size and systolic function. EF 55-60% with akinesis of the inferior base secondary to your OR. Troponin trended down for remainder of admission. In addition to continuing On discharge: 1) Continue with aspirin 81mg daily and clopidogrel (Plavix) 75mg daily, both for life. There should be no interruption in your schedule of these medications as they are medications that will hopefully prevent recurrence of an OR. 2) Continue high dose statin atorvastatin 80mg daily, for plaque stabilization 3) Continuing with cardiac rehabilitation is highly advisable. 4) Follow up with reimbursement analyst, Dr. Steele in 1-2 weeks. Your blood pressure was slightly elevated during admission. For this reason and to reduce strain on heart, you were started on lisinopril. Metoprolol was never added to your regimen as you were bradycardiac (low resting heart rate) and this medication would make it too low. On discharge: 1) Continue with Lisinopril 5mg daily 2) Get your basic metabolic panel checked in 2 weeks time to make sure there is no negative impact on your kidneys. You can do this at an lab, just have them send the results to Dr. Steele and your PCP In view of recurrent coronary thrombi, hematology was consulted. They recommended some tests (for factor V Leiden, prothrombin gene mutation, antiphospholipid antibody syndrome, and hyperhomocysteinemia), which are currently pending on discharge. On discharge: 1) Follow up with forensic document examiner, Dr. Lim in 3-4 weeks. For acid reflux, On discharge: 1) Continue pantoprazole 40mg daily PLEASE SEEK URGENT MEDICAL CARE IF THERE IS A RETURN OF SYMPTOMS, INCLUDING BUT NOT LIMITED TO CHEST PAIN, SHORTNESS OF BREATH, SWEATING, NAUSEA, FEVER, VOMITING, OR IF OTHER CONCERNS ARISE Current Hospital Diet Patient's current hospital diet: Vegetarian Diet Discharge Diet Recommended Diet: Vegetarian Diet Pending Studies Studies pending at discharge: yes List of pending studies: factor V Leiden, prothrombin gene mutation, antiphospholipid antibody syndrome, and hyperhomocysteinemia Medical Emergencies . Who to Call and When: Medical Emergencies: If at any time you feel your situation is an emergency, please call 911 immediately. . Non-Emergent Contact Non-Emergency issues call your: Primary Care Provider . "Provider Documentation" section prepared by Lashawn De La Cruz. VTE Core Measure Inpt VTE Proph given/why not?: Enoxaparin (Lovenox)SQ
[2016-06-09 11:22] VITALS: BP 121/82; PULSE 48; TEMP 37.1; O2SAT 99
[2016-06-09 16:12] VITALS: BP 131/86; PULSE 57; TEMP 36; O2SAT 100
[2016-06-09 16:22] VITALS: BP 131/86; PULSE 57; TEMP 36; O2SAT 100
[2016-06-09] MEDS ORDERED: PLV75 PO (17:54)
--- NOTE | 2016-06-09 17:59 | Discharge Summary ---
Discharge Summary Admission Date: Jun 06, 2016 at 08:48 Discharge Date: Jun 09, 2016 Discharge Disposition: Home Principal Diagnosis: NSTEMI with PCI x2 Problems/Secondary Diagnoses: (1) Hypertension Status: Chronic (Alka. De La Cruz MD) Medication Reconciliation New Medications: Atorvastatin (Atorvastatin Calcium) 40 Mg Tab 80 MG PO QAM for 30 Days, #60 TAB 2 Refills Lisinopril (Lisinopril) 5 Mg Tab 5 MG PO QAM for 30 Days, #30 TAB 2 Refills Nitroglycerin (Nitrostat) 0.4 Mg/1 Tab Subl 0.4 MG SL PRN PRN for Chest Pain for 30 Days, #30 TABS 1 Refill Pantoprazole (Pantoprazole Sodium) 40 Mg Tab 40 MG PO QAM for 30 Days, #30 TAB 2 Refills Continued Medications: Aspirin (Aspirin Ec) 81 Mg Tab 81 MG PO DAILY Clopidogrel (Plavix) 75 Mg Tab 75 MG PO DAILY Discharge Exam Patient says that he did not have any further chest pain. Yesterday he did have some epigastric pain, but with pantoprazole, that has resolved.He continues to deny dyspnea, diaphoresis or nausea No symptoms brought on by ambulation. He is eating well, tolerating diet. Slept well in the absence of previous pain/ discomfort. No pain in right wrist at radial cath site. Review of Systems: Constitutional: No chills, No fever Respiratory: No cough, No dyspnea at rest, No dyspnea on exertion, No wheezing Cardiovascular: No PND, No chest pain, No edema, No orthopnea, No palpitations Abdomen: No constipation, No diarrhea, No nausea, No pain, No vomiting Genitourinary - Male: No dysuria Neurologic: No balance problems, No numbness/tingling Physical Exam: General Appearance: WD/WN, no apparent distress Neck: supple, no adenopathy, no JVD Respiratory/Chest: lungs clear, normal breath sounds, no respiratory distress, no accessory muscle use Cardiovascular: regular rate, rhythm, no edema, no murmur Abdomen / GI: normal bowel sounds, non tender, soft Extremities: normal inspection, no calf tenderness, no pedal edema Neurologic/Psychiatric: alert, normal mood/affect, oriented x 3 Skin: normal color, warm/dry, no rash (Alka. De La Cruz MD) Hospital Course 51 year old male presents to ED with atypical chest pain and elevated troponin indicative of NSTEMI on a background of CAD s/p RCA PCI x2 (2012) as well as mid LAD STEMI followed by aspiration thrombectomy (2014). Underwent PCI x 2. NSTEMI - Presented with atypical chest pain - EKG showed sinus rhythm with inferior Q-waves suggesting prior infarct. There were minor ST elevations in the inferior leads, once again with Q-waves present. - Troponin trended: 0.02 --> 1.70 --> 1.92 - Patient started on a heparin drip per protocol. - Cardio consulted. Recommend continuing aspirin and Plavix as well as heparin drip per protocol. Recommend low dose lisinopril. Continue statin therapy, Atorvastatin 80mg daily given his history. Avoid b-sriram given bradycardia. - Cardiac cath performed 06/05 showin. Severe CAD and thrombus formation within the distal RCA, including proximal distal RCA stent. 2. Nonobstructive CAD within mid LAD and proximal to mid RCA stent. 3. Normal LVEDP. 4. No aortic stenosis. - PCI was deployed in to the distal RCA x2 drug-eluting stents. There was noted formation of small thrombus in the mid RCA and probable occlusion of a very small caliber side branch arising from the distal RCA - it was decided for medical management - Patient was given a loading dose of 180 milligrams of Ticagrelor post PC with IV Integrilin x at least 24 hours and plans for postprocedure EKGs, and cardiac enzymes - Repeat echo showed: Normal left ventricular size and systolic function. EF 55-60% with akinesis of the inferior base. Mild concentric left ventricular hypertrophy. Type 1 diastolic dysfunction. Mildly dilated right ventricle with normal systolic function. Hypermobile interatrial septum with probable small PFO. No significant valvular abnormalities visualized. - Patient agreeable to commence cardiac rehabilitation - Extensive time (60min) was spent discussing jail preventative management including lifestyle behaviours, medication function and importance of compliance - Troponin trend continued: 1.92 --> 0.985 --> 0.684 --> 1.24 --> 4.2 --> 6.88 - -> 9.25 - Decided for re-catheterization which showed sub-acute stent thrombosis of distal RCA stent. PCI of distal RCA with placement of 1 additional overlapping drug-eluting stent performed - Patient started on Integrilin x 18hours, Plavix 300 mg - Troponin trending down 9.25 --> 7.94 --> 4.21 --> 3.99 -->2.52 - On discharge, follow up with occupational therapy supervisor Dr. Steele in 2 weeks - Educated with prolonged conversations repetitively that aspirin and Plavix are lifelong without interruption, as is atorvastatin. HTN - Patient started on low dose Lisinopril 2.5 mg - Titrated up to 5mg daily - Check BMP to assess renal function a few days prior to seeing Dr. Steele and have results sent to him Allergic reaction - Itching and burning felt on patient's groin and upper thighs - similar to reaction with Effient use, although this time, without desquamation thus far - Patient given diphenhydramine 50mg IV for allergic skin reaction to ticagrelor. - Symptoms resolved. - Ticagrelor discontinued. Recurrent coronary thrombi - No family history of thrombus and has not had any thrombus noted in other vessels - Patient does have large coronary vessels and therefore with slower flow, but cardiology keen to rule out clotting disorder. - Hematology consulted. Believe event during his angiogram could easily have been triggered by the procedure itself and not generally a role for full-dose anticoagulation in patients with hypercoagulable states and it is not clear that he has had a thrombotic event while on his antiplatelet agents. Recommend testing for factor V Leiden, prothrombin gene mutation, antiphospholipid antibody syndrome, and hyperhomocysteinemia. On heparin, so testing for protein C or S deficiency would be misleading On discharge, follow up with hole digger truck driver, Dr. Lim in 4 weeks time to discuss results GERD - Started on pantoprazole 40mg daily DVT prophylaxis - Heparin Dispo - Full code - Telemetry Total Time Spent: Less than 30 minutes This includes examination of the patient, discharge planning, medication reconciliation, and communication with other providers. (Alka. De La Cruz MD) Resident Physician Supervision Note: I interviewed and examined the patient. Discussed with Dr. De La Cruz and agree with findings and plan as documented in the note. Any exceptions or clarifications are listed here: None Documented By: Kiko Mota feeling better no more pain - troponin did sl uptick - we discussed - totally asymptomatic - recheck - on the way back down. feels comfortable going home. reiterates he'll take meds. ongoing outpt f/u set up vitals noted nad breathing unlabored no accessory muscles labs reviewed CAD w NSTEMI and then stent thrombosis - in large part due to nonadherence to antiplatelets - but much more stable now. s/p cath and stenting x 2. asa/ plavix/atorvastatin/lisinopril (check BMP in 1wk) can't use beta sriram due to low HR, prn nitro. stable for discharge. continue therapeutic lifestyle ( resume exercise once OK w cardiology) Total Time Spent: Less than 30 minutes (Kiko Mota D.Jordan.) Discharge Instructions Please refer to the electronic Patient Visit Report (Discharge Instructions) for additional information. (Alka. De La Cruz MD)
[2016-06-11 07:40] LABS: B2 GLYCOPROTEIN IGA <9 SAU (<=20); B2 GLYCOPROTEIN IGG <9 SGU (<=20); B2 GLYCOPROTEIN IGM <9 SMU (<=20); DRVVT MIX INTERPRETAION Not Indicated; LAC PTT SCREEN 133 sec (<=40); PHOSPHATIDYLSERINE IGA <20 U/mL (<20); PHOSPHATIDYLSERINE IGG 10 U/mL (<10); PHOSPHATIDYLSERINE IGM <25 U/mL (<25)
[2016-06-11 13:06] LABS: LUPUS ANTICOAGULANT** TC36573X Negative (Negative)
[2016-06-20] MEDS ORDERED: LSN5 PO (08:26)
== END 2016-06-09 18:14 | disposition home or self-care (01) | DRG 246 ==
LOC: ENRESERVTM → ENRESERVDT → C.EDB 11:42 → EDBEDREQ 14:08 → C.2E 15:00 → INTOOBSV 15:00 → OBSVTOIN 06-06 08:48
PROVIDERS: ADMIT Internal Medicine; ATTEND Family Medicine
PROC: 02C03ZZ Extirpation of Matter from Coronary Artery, One Artery, Percutaneous Approach (ICD-10-PCS; 2016-06-05)
PROC: 027035Z Dilation of Coronary Artery, One Artery with Two Drug-eluting Intraluminal Devices, Percutaneous Approach (ICD-10-PCS; 2016-06-05)
PROC: B211YZZ Fluoroscopy of Multiple Coronary Arteries using Other Contrast (ICD-10-PCS; 2016-06-05)
PROC: 4A023N7 Measurement of Cardiac Sampling and Pressure, Left Heart, Percutaneous Approach (ICD-10-PCS; 2016-06-05)
PROC: B211YZZ Fluoroscopy of Multiple Coronary Arteries using Other Contrast (ICD-10-PCS; principal; 2016-06-07 12:10)
PROC: 027034Z Dilation of Coronary Artery, One Artery with Drug-eluting Intraluminal Device, Percutaneous Approach (ICD-10-PCS; principal; 2016-06-07 12:10)
DX: T82.855A Stenosis of coronary artery stent, initial encounter (principal); I21.4 Non-ST elevation (NSTEMI) myocardial infarction; I11.9 Hypertensive heart disease without heart failure; I25.10 Atherosclerotic heart disease of native coronary artery without angina pectoris; T45.8X5A Adverse effect of other primarily systemic and hematological agents, initial encounter; L29.9 Pruritus, unspecified; R20.8 Other disturbances of skin sensation; K21.9 Gastro-esophageal reflux disease without esophagitis; I25.2 Old myocardial infarction; Z51.81 Encounter for therapeutic drug level monitoring; Z79.82 Long term (current) use of aspirin; Z79.02 Long term (current) use of antithrombotics/antiplatelets; Z91.14 Patient's other noncompliance with medication regimen; Z87.891 Personal history of nicotine dependence; Z88.8 Allergy status to other drugs, medicaments and biological substances; Y83.1 Surgical operation with implant of artificial internal device as the cause of abnormal reaction of the patient, or of later complication, without mention of misadventure at the time of the procedure

== ENCOUNTER 2016-06-18 11:03 | Observation (INO) | payer BC ==
[~2016-06-18] VITALS: Ht 165.1 cm; Wt 83.8 kg
[~2016-06-18 11:03] MED LIST changes: -ASCO10003 PO; -COCO1CAP PO; -COEN1CAP17 PO; -GARL400T4 PO; +LSN5 PO; -MISC1CAP60 PO; -MULT-506 PO; +NTRSLP4 SL; -OMEG10002 PO; +PLV75 PO; +PRT40 PO; -RHOD300C PO; -ST J1CAP PO
--- NOTE | 2016-06-18 12:46 | DIAGNOSTIC IMAGING REPORT ---
CHEST ONE VIEW PORTABLE CLINICAL HISTORY: Chest pain. Hypertension. COMPARISON STUDY: Chest radiograph June 04, 2016. FINDINGS: Lung volumes are normal. There is no pneumothorax or pleural effusion. Cardiac size is normal. Mediastinal contours are normal. There is no evidence of pulmonary edema. There is S-shaped scoliosis of the thoracolumbar spine. IMPRESSION: No acute cardiopulmonary findings. Electronically signed by: Shane Booth M.D. 06/18/2016 12:45 PM Dictated Date/Time: 06/18/2016 12:44 PM
[2016-06-18 13:02] LABS: BASO % 0.3 %; BASO ABS # 0.02 K/uL (0-0.2); COMPLETE YES; EOS % 1.5 %; HEMATOCRIT 40.3 % (42-52); IG% 0.1 %; LYMPH % 31.8 %; LYMPH ABS # 2.28 K/uL (1.2-3.4); MEAN CORPUSCULAR HEMOGLOBIN 33.8 pg (25-34); MEAN CORPUSCULAR HGB CONC 35.2 g/dl (32-36); MONO % 9.3 %; PLATELET COUNT 264 K/uL (130-400); WHITE BLOOD COUNT 7.17 K/uL (4.8-10.8)
[2016-06-18 13:24] LABS: BUN/CREATININE RATIO 6.5 (10-20); POTASSIUM 3.4 mmol/L (3.5-5.1)
[2016-06-18] MEDS ORDERED: NITROGLYCERIN 0.4 MG SL PER TAB CHARGE SL PRN (13:45)
[2016-06-18] MEDS ORDERED: ACETAMINOPHEN 325 MG TAB PO PRN (13:45)
[2016-06-18 13:59] LABS: PARTIAL THROMBOPLASTIN RATIO 0.9; PROTHROMBIN TIME (PATIENT) 10.9 SECONDS (9.0-12.0)
--- NOTE | 2016-06-18 14:20 | History and Physical ---
History & Physical Date & Time of Service: Jun 18, 2016 at 13:49 Chief Complaint: High Blood Pressure Recent Heart Attack Primary Care Physician: Chaitanya Steele M.D. History of Present Illness Source: patient This is a 51 yo M with PMHx significant CAD with first cardiac cath in Feb 2015 placed on plavix, recent hospitalization from 06/04/16-06/09/16 for NSTEMI s/p PCI x 2 in the RCA, former smoker (2 years total, 2-3 cigs daily, quit 1 year ago) who presents after home blood pressure check was 161/101 on repeat. He reports at the time his blood pressure was elevated he had no chest pain, no pressure, no palpitations, lightheadedness or dizziness. He had drank a protein shake this morning and did low intensity yoga early today. 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 He denies any associated anxiety surrounding returning to work. Pt admits to feeling lightheaded with some chest pressure in his mid back now, rated a 2/10. He has taken all his medications as prescribed this morning. Pt admits to drinking 2 glasses of red wine daily for heart health. During the last hospitalization Dr. Wyatt performed cardiac catheterization on . He required a second intervention on 06/[address] Gusman. He was restarted on plavix (as he had previously stopped taking it himself), asa 81 mg , statin therapy and lisinopril. The patient was not placed on a beta sriram due to resting bradycardia per cardiology. Troponins were elevated as high as 9 during that admission. Trop-I=0.1 currently. CBC is WNL, chemistry WNL except K+= 3.4, and coags are in process. Past Medical/Surgical History Medical Problems: (1) Chest pain Status: Resolved (2) Dehydration Status: Resolved (3) Elevated troponin Status: Resolved (4) Gastric reflux Status: Resolved (5) Hypertension Status: Chronic (6) [place] (myocardial infarction) Status: Resolved (7) NSTEMI (non-ST elevated myocardial infarction) Status: Resolved (8) STEMI (ST elevation myocardial infarction) Status: Resolved Surgical Problems: (1) H/O vasectomy Status: Resolved (2) History of heart artery stent Status: Resolved Family History Patient reports no known family medical history. Social History Smoking Status: Former Smoker Alcohol Use: 2 glasses red wine daily Drug Use: none Marital Status: single Occupational Status: employed Multi-Drug Resistant Organisms History of MDRO: No Allergies Coded Allergies: Prasugrel (Unverified Allergy, Severe, skin blistering and peeling with burning and itching, 06/18/16) PER RODRIGUE'S NOTE HE TOLERATES PLAVIX Home Medications Scheduled Aspirin (Aspirin Ec), 81 MG PO DAILY Atorvastatin (Atorvastatin Calcium), 80 MG PO QAM Clopidogrel (Plavix), 75 MG PO DAILY Lisinopril (Lisinopril), 5 MG PO QAM Pantoprazole (Pantoprazole Sodium), 40 MG PO QAM Scheduled PRN Nitroglycerin (Nitrostat), 0.4 MG SL PRN PRN for Chest Pain Review of Systems Constitutional: No chills, No fever, No sweats Eyes: No problem reported ENT: No problem reported Respiratory: No cough, No dyspnea at rest, No dyspnea on exertion, No shortness of breath, No sputum Abdomen: No constipation, No diarrhea, No nausea, No pain, No vomiting Musculoskeletal: No calf pain, No swelling Genitourinary - Male: No dysuria, No hematuria Neurologic: No numbness/tingling, No weakness Integumentary: + problem reported (skin flaking on thighs and buttocks s/p getting brilinta during last admission) Physical Exam Vital Signs Date Time Temp Pulse Resp B/P Pulse Ox O2 Delivery O2 Flow Rate FiO2 06/18/16 13:38 78 06/18/16 12:31 98 Room Air 06/18/16 12:11 87 17 132/93 98 Room Air 06/18/16 11:38 74 06/18/16 11:08 36.8 82 16 153/92 99 Room Air General Appearance: WD/WN, no apparent distress, + pertinent finding ( physically fit, male) Head: normocephalic, atraumatic Eyes: PERRL, EOMI ENT: hearing grossly normal, pharynx normal Neck: supple, no JVD Respiratory/Chest: chest non-tender, lungs clear, normal breath sounds, no respiratory distress, no accessory muscle use Cardiovascular: regular rate, rhythm, no murmur, normal peripheral pulses Abdomen/GI: normal bowel sounds, non tender, soft Back: normal inspection Extremities/Musculoskelatal: no calf tenderness, no pedal edema Neurologic/Psych: alert, normal mood/affect, oriented x 3 Skin: normal color, warm/dry, + pertinent finding (flaking on bilateral thighs) Diagnostics Laboratory Results Results Past 24 Hours Test 06/18/16 11:35 06/18/16 12:31 Range/Units White Blood Count 7.17 4.8-10.8 K/uL Red Blood Count 4.20 4.7-6.1 M/uL Hemoglobin 14.2 14.0-18.0 g/dL Hematocrit 40.3 42-52 % Mean Corpuscular Volume 96.0 80-100 fL Mean Corpuscular Hemoglobin 33.8 25-34 pg Mean Corpuscular Hemoglobin Concent 35.2 32-36 g/dl Platelet Count 264 130-400 K/uL Mean Platelet Volume 10.0 7.4-10.4 fL Neutrophils (%) (Auto) 57.0 % Lymphocytes (%) (Auto) 31.8 % Monocytes (%) (Auto) 9.3 % Eosinophils (%) (Auto) 1.5 % Basophils (%) (Auto) 0.3 % Neutrophils # (Auto) 4.08 1.4-6.5 K/uL Lymphocytes # (Auto) 2.28 1.2-3.4 K/uL Monocytes # (Auto) 0.67 0.11-0.59 K/uL Eosinophils # (Auto) 0.11 0-0.5 K/uL Basophils # (Auto) 0.02 0-0.2 K/uL RDW Standard Deviation 46.2 36.4-46.3 fL RDW Coefficient of Variation 13.2 11.5-14.5 % Immature Granulocyte % (Auto) 0.1 % Immature Granulocyte # (Auto) 0.01 0.00-0.02 K/uL Sodium Level 141 136-145 mmol/L Potassium Level 3.4 3.5-5.1 mmol/L Chloride Level 104 98-107 mmol/L Carbon Dioxide Level 27 21-32 mmol/L Anion Gap 10.0 3-11 mmol/L Blood Urea Nitrogen 6 7-18 mg/dl Creatinine 1.00 0.60-1.40 mg/dl Est Creatinine Clear Calc Drug Dose 87.9 ml/min Estimated GFR () 102.0 Estimated GFR (Non- 88.0 BUN/Creatinine Ratio 6.5 10-20 Random Glucose 85 70-99 mg/dl Calcium Level 9.0 8.5-10.1 mg/dl Bedside Troponin I 0.100 0-0.045 ng/ml Diagnostic Radiology CHEST ONE VIEW PORTABLE CLINICAL HISTORY: Chest pain. Hypertension. COMPARISON STUDY: Chest radiograph June 04, 2016. FINDINGS: Lung volumes are normal. There is no pneumothorax or pleural effusion. Cardiac size is normal. Mediastinal contours are normal. There is no evidence of pulmonary edema. There is S-shaped scoliosis of the thoracolumbar spine. IMPRESSION: No acute cardiopulmonary findings. Electronically signed by: Shane Booth M.D. 06/18/2016 12:45 PM Dictated Date/Time: 06/18/2016 12:44 PM The status of this report is Signed. CXR normal EKG Vent. rate 76 BPM AZ interval 182 ms QRS duration 108 ms QT/QTc 380/427 ms P-R-T axes 15 -8 -[address] abnormalities as compared to previous EKG on 06/09, appears improved in comparison from previous admission where he had NSTEMI. Impression Assessment and Plan This is a 51 yo M with PMHx significant CAD with first cardiac cath in Feb 2015 placed on plavix, recent hospitalization from 06/04/16-06/09/16 for NSTEMI s/p PCI x 2 in the RCA, former smoker (2 years total, 2-3 cigs daily, quit 1 year ago) who presents after home blood pressure check was 161/101 on repeat. Chest Pain R/o, hypertension in the setting of recent NSTEMI s/p PCI x 2. Hx CAD - Tele Obs - EKG reviewed as above. - Troponin initial= 0.1, compared to previous admission this is trending downward from as high as 9.0, will trend with CKMB Q8H x 2 more sets - Cardiology consulted d/t recent NSTEMI, will keep NPO until cards sees the patient. - Continue lisinopril 5 mg daily, asa 81 mg, plavix 75 mg daily, atorvastatin 80 mg daily - Nitro prn - Pt was not put on a BB during last admit due to resting bradycardia - pt reports history of passing out if being placed on this - Previously has had allergic reactions with skin burning sensation and then sloughing with administration of Effient during Feb 2015 cardiac cath, and Brilinta during most recent cardiac cath procedures. - Pt currently still has some skin flaking from last admit where he received Brilinta. - Dr. Steele is primary communications scientist -has follow up already scheduled next week - Will replete K+= 3.4 with 20 meq PO. GERD - Cont pantoprazole 40 mg daily DVT ppx: SCDs, OOB, plavix CODE STATUS: FULL CODE Disposition: From home. ASA Classification: ASA Class I Level of Care Telemetry Resuscitation Status FULL RESUSCITATION VTE Prophylaxis VTE Risk Assessment Done? Y/N: Yes Risk Level: Very Low Given or contraindicated: Other Anticoagulation, SCD's Social Service Consult None Apply Reviewed: Pt Seen/Exam by Me, RN Notes, HO Notes, Prior Records, Labs, RAD, EKG History I agree with PA H&P except as below This is a 51 yo M with PMHx significant CAD with first cardiac cath in Feb 2015 placed on plavix, recent hospitalization from 06/04/16-06/09/16 for NSTEMI s/p PCI x 2 in the RCA, former smoker (2 years total, 2-3 cigs daily, quit 1 year ago) who presents after home blood pressure check was 161/101 on repeat. EENTM: denies: tearing Respiratory: negative: cough Cardiovascular: denies chest pain Gastrointestinal/Abdominal: negative: abdominal pain Genitourinary: negative discharge Musculoskeletal: negative: back pain Neurological/Psych: negative: anxiety Hematologic/Lymphatic: negative: anemia General Appearance: no apparent distress Eye Exam: bilateral eye normal inspection Ears, Nose, Throat: hearing grossly normal Neck: non-tender Respiratory: chest non-tender, normal breath sounds, no respiratory distress Cardiovascular: regular rate, rhythm Gastrointestinal: soft Extremities: non-tender Neurologic/Psychiatric: alert Skin Characteristics: normal color Assessment/Plan This is a 51 yo M with PMHx significant CAD with first cardiac cath in Feb 2015 placed on plavix, recent hospitalization from 06/04/16-06/09/16 for NSTEMI s/p PCI x 2 in the RCA, former smoker (2 years total, 2-3 cigs daily, quit 1 year ago) who presents after home blood pressure check was 161/101 on repeat. Chest Pain R/o, hypertension in the setting of recent NSTEMI s/p PCI x 2. Hx CAD agree with Tele EKG reviewed as above. Troponin initial, 0.1, compared to previous admission this is trending downward from as high as 9.0, will trend with CKMB Q8H x 2 more sets Cardiology consulted d/t recent NSTEMI, will keep NPO until cards sees the patient. Continue lisinopril 5 mg daily, asa 81 mg, plavix 75 mg daily, atorvastatin 80 mg daily Nitro prn Pt was not put on a BB during last admit due to resting bradycardia GERD Cont pantoprazole 40 mg daily DVT proph: SCDs, OOB, plavix CODE STATUS: FULL CODE case discussed with TABATHA Dewey time spent 45 min
[2016-06-18] MEDS ORDERED: IV FLUIDS COMPLETED PRN (14:45)
[2016-06-18 15:10] VITALS: BP 147/90; PULSE 75; TEMP 36.7; O2SAT 97; Ht 165.1 cm; Wt 83.8 kg
[2016-06-18 16:02] VITALS: BP 123/79; PULSE 76; O2SAT 97
--- NOTE | 2016-06-18 17:37 | EMERGENCY ROOM VISIT NOTE ---
History Report prepared by Andrew: Theodora Shaw Under the Supervision of: Dr. Garland Lawrence M.D. First contact with patient: 12:14 Chief Complaint: HYPERTENSION Stated Complaint: HIGH BLOOD PRESSURE RECENT HEART ATTACK History of Present Illness The patient is a 51 year old male who presents to the Emergency Room with complaints of persistent hypertension that began this morning. He currently rates his discomfort a 1/10 in severity. The patient states that his blood pressure was elevated at a reading of 160/100 mmHg. He states that when his blood pressure went up, he noticed slight central chest pressure for a few seconds. The patient states that he took a nitroglycerin, but states that he took it on top of his tongue and not underneath it. He additionally notes that his heart was racing when he took his blood pressure and has been feeling anxious. The patient states that yesterday he developed back pain located in between his shoulder blades, but notes that it has resolved. He states that yesterday he was active walking around and states that this morning he did yoga. The patient denies his symptoms today feeling similar to his event in May. He denies any diaphoresis, shortness of breath, fever, cold symptoms, or pain or swelling to his lower extremities. Source of History: patient Onset: this morning Position: other (global) Symptom Intensity: 1/10 Quality: other (hypertension) Timing: other (persistent) Associated Symptoms: + back pain (between shoulderblades), + chest pain ( central), No SOB, No diaphoresis, No fevers Review of Systems See HPI for pertinent positives & negatives. A total of 10 systems reviewed and were otherwise negative. Past Medical & Surgical Medical Problems: (1) Chest pain (2) Dehydration (3) Elevated blood pressure reading (4) Elevated troponin (5) Gastric reflux (6) Hypertension (7) MT (myocardial infarction) (8) NSTEMI (non-ST elevated myocardial infarction) (9) STEMI (ST elevation myocardial infarction) Surgical Problems: (1) H/O vasectomy (2) History of heart artery stent Family History Patient reports no known family medical history. Social History Smoking Status: Former Smoker Alcohol Use: occasionally Drug Use: none Marital Status: single Housing Status: lives alone Occupation Status: employed Current/Historical Medications Scheduled Aspirin (Aspirin Ec), 81 MG PO DAILY Atorvastatin (Atorvastatin Calcium), 80 MG PO QAM Clopidogrel (Plavix), 75 MG PO DAILY Lisinopril (Lisinopril), 5 MG PO QAM Pantoprazole (Pantoprazole Sodium), 40 MG PO QAM Scheduled PRN Nitroglycerin (Nitrostat), 0.4 MG SL PRN PRN for Chest Pain Allergies Coded Allergies: Prasugrel (Unverified Allergy, Severe, skin blistering and peeling with burning and itching, 06/18/16) PER RODRIGUE'S NOTE HE TOLERATES PLAVIX Physical Exam Vital Signs Date Time Temp Pulse Resp B/P Pulse Ox O2 Delivery O2 Flow Rate FiO2 06/18/16 13:38 78 06/18/16 13:00 78 21 139/81 99 Room Air 06/18/16 12:31 98 Room Air 06/18/16 12:11 87 17 132/93 98 Room Air 06/18/16 11:38 74 06/18/16 11:08 36.8 82 16 153/92 99 Room Air Physical Exam Constitutional: Vital signs reviewed. Eyes: Pupils are equal round reactive to light. Conjunctiva are noninjected. ENT: Pharynx is clear without erythema or exudate. Mucous membranes are moist. Neck supple without meningeal signs. Respiratory: Clear to auscultation bilaterally. Breath sounds are equal bilaterally. Cardiovascular: Regular rate and rhythm. No rubs or gallops. GI: Soft, nondistended and nontender. Bowel sounds are present. Musculoskeletal: No peripheral edema. No lower extremity tenderness. Integumentary: No cyanosis. Neurological: The patient is awake and alert. No focal deficits. Psychiatric: Slightly anxious appearing. Medical Decision & Procedures ER Provider Diagnostic Interpretation: X-ray results as stated below per interpretation by me and the radiologist: CHEST ONE VIEW PORTABLE CLINICAL HISTORY: Chest pain. Hypertension. COMPARISON STUDY: Chest radiograph June 04, 2016. FINDINGS: Lung volumes are normal. There is no pneumothorax or pleural effusion. Cardiac size is normal. Mediastinal contours are normal. There is no evidence of pulmonary edema. There is S-shaped scoliosis of the thoracolumbar spine. IMPRESSION: No acute cardiopulmonary findings. Electronically signed by: Shane Booth M.D. 06/18/2016 12:45 PM Dictated Date/Time: 06/18/2016 12:44 PM Laboratory Results 06/18/16 11:35 Red Blood Count 4.20, Mean Corpuscular Volume 96.0, Mean Corpuscular Hemoglobin 33.8, Mean Corpuscular Hemoglobin Concent 35.2, Mean Platelet Volume 10.0, Neutrophils (%) (Auto) 57.0, Lymphocytes (%) (Auto) 31.8, Monocytes (%) (Auto) 9.3, Eosinophils (%) (Auto) 1.5, Basophils (%) (Auto) 0.3, Neutrophils # (Auto) 4.08, Lymphocytes # (Auto) 2.28, Monocytes # (Auto) 0.67, Eosinophils # (Auto) 0.11, Basophils # (Auto) 0.02 06/18/16 11:35 Test 06/18/16 11:35 06/18/16 12:31 White Blood Count 7.17 K/uL (4.8-10.8) Red Blood Count 4.20 M/uL (4.7-6.1) Hemoglobin 14.2 g/dL (14.0-18.0) Hematocrit 40.3 % (42-52) Mean Corpuscular Volume 96.0 fL (80-100) Mean Corpuscular Hemoglobin 33.8 pg (25-34) Mean Corpuscular Hemoglobin Concent 35.2 g/dl (32-36) Platelet Count 264 K/uL (130-400) Mean Platelet Volume 10.0 fL (7.4-10.4) Neutrophils (%) (Auto) 57.0 % Lymphocytes (%) (Auto) 31.8 % Monocytes (%) (Auto) 9.3 % Eosinophils (%) (Auto) 1.5 % Basophils (%) (Auto) 0.3 % Neutrophils # (Auto) 4.08 K/uL (1.4-6.5) Lymphocytes # (Auto) 2.28 K/uL (1.2-3.4) Monocytes # (Auto) 0.67 K/uL (0.11-0.59) Eosinophils # (Auto) 0.11 K/uL (0-0.5) Basophils # (Auto) 0.02 K/uL (0-0.2) RDW Standard Deviation 46.2 fL (36.4-46.3) RDW Coefficient of Variation 13.2 % (11.5-14.5) Immature Granulocyte % (Auto) 0.1 % Immature Granulocyte # (Auto) 0.01 K/uL (0.00-0.02) Prothrombin Time 10.9 SECONDS (9.0-12.0) Prothromb Time International Ratio 1.0 (0.9-1.1) Activated Partial Thromboplast Time 23.8 SECONDS (21.0-31.0) Partial Thromboplastin Ratio 0.9 Anion Gap 10.0 mmol/L (3-11) Est Creatinine Clear Calc Drug Dose 87.9 ml/min Estimated GFR () 102.0 Estimated GFR (Non- 88.0 BUN/Creatinine Ratio 6.5 (10-20) Calcium Level 9.0 mg/dl (8.5-10.1) Bedside Troponin I 0.100 ng/ml (0-0.045) Laboratory results as reviewed by me. ECG Indication: other (hypertension) Rate (beats per minute): 79 Rhythm: normal sinus Findings: Q waves (Inferior), no ectopy ED Course 1218: The patient was evaluated in room A12A. A complete history and physical exam was performed. 1300: I reevaluated the patient and he states that he is feeling like his heart is racing but his heart rates is 85. He is otherwise asymptomatic. I discussed the test results and I discussed the treatment plan. He verbalized complete understanding and agreement. He will be evaluated for further treatment. 1303: I discussed the patients case with Dr. [place] [facility] [place] is going to evaluate the patient for further treatment. Medical Decision This is a 51-year-old male who presents with chest discomfort, back pain and elevated blood pressure. Differential diagnosis includes acute coronary syndrome, MT, poorly controlled hypertension, anxiety, GERD. I did perform a limited focused review of portions of the patient's old chart on the electronic medical record. The patient was admitted in May in Non-STEMI and had a cardiac catheterization which showed a subacute stent thrombosis in the distal RCA stent. he also had a PCI with additional stent placement. I did evaluate the patient as noted above. He is not currently having any chest or back discomfort. His blood pressure is improved. IV access was established. The patient was placed on a continuous monitoring engineer. I did order and personally review the patient's 12-lead EKG and chest x-ray as described above. I did order and review the patient's blood work as noted in the electronic medical record. His troponin is slightly elevated at 0.1. Although his symptoms are not similar to when he was previously here with his non-STEMI I did feel that given his prior history and elevation of his troponin he did warrant hospitalization for repeat cardiac enzymes and further evaluation. I did discuss this with the patient. I did discuss the case with the hospitalist and case therapist. Consults Time Called: 1300 Consulting Physician: LUCITA Hoffman Returned Call: 1303 I discussed the patients case with LUCITA Hoffman. He is going to evaluate the patient for further treatment. Impression Primary Impression: Acute chest pain Additional Impressions: Hypertension Elevated troponin Scribe Attestation The scribe's documentation has been prepared under my direct and personally reviewed by me in its entirety. I confirm that the note above accurately reflects all work, treatment, procedures, and medical decision making performed by me. Departure Information Dispostion Being Evaluated By Hospitalist Referrals Chaitanya Steele M.D. (PCP) Problem Qualifiers
[2016-06-18] MEDS: POTASSIUM CHLORIDE 20 MEQ TABCR PO SCH (19:44)
[2016-06-18 20:00] VITALS: O2SAT 96
[2016-06-18 20:21] VITALS: BP 131/86; PULSE 70; TEMP 37.5; O2SAT 96
[2016-06-19] VITALS (13 sets, daily range): BP systolic 111–134; BP diastolic 62–96; PULSE 55–66; TEMP 36.7–36.9; O2SAT 97–99
[2016-06-19 06:23] LABS: BASO % 0.3 %; BASO ABS # 0.02 K/uL (0-0.2); EOS % 1.6 %; HEMATOCRIT 40.3 % (42-52); IG% 0.1 %; LYMPH % 37.9 %; LYMPH ABS # 2.93 K/uL (1.2-3.4); MEAN CORPUSCULAR HEMOGLOBIN 33.3 pg (25-34); MEAN PLATELET VOLUME 9.5 fL (7.4-10.4); MONO % 7.9 %; NEUT % 52.2 %; PLATELET COUNT 234 K/uL (130-400); RED BLOOD COUNT 4.24 M/uL (4.7-6.1); WHITE BLOOD COUNT 7.73 K/uL (4.8-10.8)
[2016-06-19 06:56] LABS: BLOOD UREA NITROGEN 6 mg/dl (7-18); BUN/CREATININE RATIO 6.2 (10-20); CALCIUM 8.9 mg/dl (8.5-10.1); CARBON DIOXIDE 25 mmol/L (21-32); CHLORIDE 109 mmol/L (98-107); CREATININE 0.91 mg/dl (0.60-1.40); GLUCOSE 81 mg/dl (70-99); POTASSIUM 3.9 mmol/L (3.5-5.1); SODIUM 144 mmol/L (136-145)
[2016-06-19 07:12] LABS: COMPLETE YES
--- NOTE | 2016-06-19 07:46 | Progress Note ---
Subjective Date of Service: Jun 19, 2016. Subjective pt feels much better, no concerns for acute coronary syndrome. BP control is not optimal, cardiology is increasing lisinopril Problem List Medical Problems: (1) Acute chest pain Status: Acute (2) Acute chest pain Status: Acute (3) Hypertension Status: Chronic Review of Systems Constitutional: No chills, No fever Respiratory: No cough, No shortness of breath Cardiac: No chest pain, No orthopnea Abdomen: No diarrhea, No nausea, No pain, No vomiting Male : No dysuria, No urinary frequency Psychiatric: No anhedonism, No depression symptoms Objective Vital Signs Date Time Temp Pulse Resp B/P Pulse Ox O2 Delivery O2 Flow Rate FiO2 06/19/16 04:07 36.9 55 16 113/76 97 Room Air 06/19/16 04:00 97 Room Air 06/19/16 00:03 36.9 62 15 134/87 98 Room Air 06/19/16 00:01 98 Room Air 06/18/16 20:21 37.5 70 20 131/86 96 Room Air 06/18/16 20:00 96 Room Air 06/18/16 16:05 Room Air 06/18/16 16:02 76 18 123/79 97 Room Air 06/18/16 15:10 36.7 75 18 147/90 97 Room Air 06/18/16 14:38 77 21 134/75 100 Room Air 06/18/16 13:57 77 15 156/87 99 Room Air 06/18/16 13:38 78 06/18/16 13:00 78 21 139/81 99 Room Air 06/18/16 12:31 98 Room Air 06/18/16 12:11 87 17 132/93 98 Room Air 06/18/16 11:38 74 06/18/16 11:08 36.8 82 16 153/92 99 Room Air Physical Exam General Appearance: WD/WN, no apparent distress Neck: supple, no JVD Respiratory/Chest: chest non-tender, lungs clear, normal breath sounds Cardiovascular: regular rate, rhythm, no murmur Abdomen: normal bowel sounds, non tender, soft Extremities: no pedal edema, no calf tenderness Laboratory Results Last 24 Hours Test 06/18/16 11:35 06/18/16 12:31 06/18/16 22:00 06/18/16 22:07 White Blood Count 7.17 K/uL Red Blood Count 4.20 M/uL Hemoglobin 14.2 g/dL Hematocrit 40.3 % Mean Corpuscular Volume 96.0 fL Mean Corpuscular Hemoglobin 33.8 pg Mean Corpuscular Hemoglobin Concent 35.2 g/dl Platelet Count 264 K/uL Mean Platelet Volume 10.0 fL Neutrophils (%) (Auto) 57.0 % Lymphocytes (%) (Auto) 31.8 % Monocytes (%) (Auto) 9.3 % Eosinophils (%) (Auto) 1.5 % Basophils (%) (Auto) 0.3 % Neutrophils # (Auto) 4.08 K/uL Lymphocytes # (Auto) 2.28 K/uL Monocytes # (Auto) 0.67 K/uL Eosinophils # (Auto) 0.11 K/uL Basophils # (Auto) 0.02 K/uL RDW Standard Deviation 46.2 fL RDW Coefficient of Variation 13.2 % Immature Granulocyte % (Auto) 0.1 % Immature Granulocyte # (Auto) 0.01 K/uL Prothrombin Time 10.9 SECONDS Prothromb Time International Ratio 1.0 Activated Partial Thromboplast Time 23.8 SECONDS Partial Thromboplastin Ratio 0.9 Sodium Level 141 mmol/L Potassium Level 3.4 mmol/L Chloride Level 104 mmol/L Carbon Dioxide Level 27 mmol/L Anion Gap 10.0 mmol/L Blood Urea Nitrogen 6 mg/dl Creatinine 1.00 mg/dl Est Creatinine Clear Calc Drug Dose 87.9 ml/min Estimated GFR () 102.0 Estimated GFR (Non- 88.0 BUN/Creatinine Ratio 6.5 Random Glucose 85 mg/dl Calcium Level 9.0 mg/dl Bedside Troponin I 0.100 ng/ml Creatine Kinase MB Ratio Creatine Kinase MB 0.6 ng/ml Troponin I 0.111 ng/ml Test 06/19/16 06:00 06/19/16 06:04 Creatine Kinase MB Ratio White Blood Count 7.73 K/uL Red Blood Count 4.24 M/uL Hemoglobin 14.1 g/dL Hematocrit 40.3 % Mean Corpuscular Volume 95.0 fL Mean Corpuscular Hemoglobin 33.3 pg Mean Corpuscular Hemoglobin Concent 35.0 g/dl Platelet Count 234 K/uL Mean Platelet Volume 9.5 fL Neutrophils (%) (Auto) 52.2 % Lymphocytes (%) (Auto) 37.9 % Monocytes (%) (Auto) 7.9 % Eosinophils (%) (Auto) 1.6 % Basophils (%) (Auto) 0.3 % Neutrophils # (Auto) 4.04 K/uL Lymphocytes # (Auto) 2.93 K/uL Monocytes # (Auto) 0.61 K/uL Eosinophils # (Auto) 0.12 K/uL Basophils # (Auto) 0.02 K/uL RDW Standard Deviation 46.7 fL RDW Coefficient of Variation 13.4 % Immature Granulocyte % (Auto) 0.1 % Immature Granulocyte # (Auto) 0.01 K/uL Red Blood Cell Morphology Unremarkable Sodium Level 144 mmol/L Potassium Level 3.9 mmol/L Chloride Level 109 mmol/L Carbon Dioxide Level 25 mmol/L Anion Gap 10.0 mmol/L Blood Urea Nitrogen 6 mg/dl Creatinine 0.91 mg/dl Est Creatinine Clear Calc Drug Dose 97.2 ml/min Estimated GFR () 114.3 Estimated GFR (Non- 98.6 BUN/Creatinine Ratio 6.2 Random Glucose 81 mg/dl Calcium Level 8.9 mg/dl Creatine Kinase MB 0.7 ng/ml Troponin I 0.137 ng/ml Assessment and Plan 51 yo M with PMHx significant CAD recent hospitalization from 06/04/16-06/09/16 for NSTEMI s/p PCI x 2 in the RCA, former smoker (2 years total, 2-3 cigs daily , quit 1 year ago) presenting with hypertensive urgency and minor chest pain Hypertensive urgency, chest pain, asa 81 mg, plavix 75 mg daily, atorvastatin 80 mg daily, lisinopril will be increased to bid for better BP control , initially did have poor reaction to B John with syncope, so was not continued , may benefit from less rate affecting med such as coreg - Cardiology consulted d/t recent NSTEMI, . Hypokalemia, replete GERD pantoprazole 40 mg daily DVT ppx: SCDs, OOB, CODE STATUS: FULL CODE
[2016-06-19] MEDS: CLOPIDOGREL BISULFATE 75 MG TAB PO SCH (08:08)
[2016-06-19] MEDS: ATORVASTATIN 40 MG TAB PO SCH (08:08)
[2016-06-19] MEDS: ASPIRIN 81 MG ECTAB PO SCH (08:08)
[2016-06-19] MEDS: POTASSIUM CHLORIDE 20 MEQ TABCR PO SCH (08:08)
[2016-06-19] MEDS: PANTOprazole SOD 40 MG TAB PO SCH (08:08)
[2016-06-19] MEDS ORDERED: LISINOPRIL 5 MG TAB PO SCH (09:00)
--- NOTE | 2016-06-19 10:08 | Cardiology Consultation ---
Cardiology Consultation Date of Consultation: Jun 19, 2016. Requesting Physician: Louise Dewey Attending Physician: Dr. Steele Reason for Consultation: Hypertension, recent NSTEMI Pt evaluation today including: conversation w/ patient, physical exam, chart review, lab review, review of studies, review of inpatient medication list, conversation w/ attending History of Present Illness Mr. Bustamante is a 51-year-old male with a past medical history significant for CAD status post intracoronary stenting, hypertension, and GERD who presented to the ED yesterday with complaints of high blood pressure. The patient's cardiac history began in 2012 when he had a myocardial infarction and underwent stenting of his right coronary artery with 1 BMS and 1 BENITEZ. The patient was then admitted to [facility] on 03/05/15 for a STEMI. He underwent a cardiac catheterization that showed 100% occlusion of his LAD for which he had aspiration thrombectomy. No stent was placed. More recently, he was admitted on 06/04/2016 with an NSTEMI. He was found to have 99% distal RCA stenosis that was stented with 2 BENITEZ on 06/05/2016. He was taken back into the cardiac catheterization lab on 06/05/2016 and had 1 additional overlapping stent to his RCA due to subacute stent thrombosis. More recently, the patient reports that he took his blood pressure at home yesterday and noted it to be 160/100 mmHg. He then became very anxious and felt his heart fluttering. He also noted pain in his mid back that lasted only seconds in duration. He took a nitro but reports that he put it on top of his tongue instead of underneath it. He reports that he did not feel any chest discomfort, shortness of breath, nausea, or diaphoresis. When his anxiety about his high blood pressure continued, he decided to go to the ED for further evaluation. He is currently resting comfortably in bed. He has had no chest discomfort or other anginal type symptoms during the admission. He denies shortness of breath , orthopnea, PND, or edema. He noted a brief episode of feeling his heart racing yesterday, but he has had no recurrence. He denies lightheadedness, dizziness, syncope, presyncope, abnormal bleeding, cerebrovascular symptoms, cough, wheezing, fevers, chills, or GI/ symptoms. He has been taking his home medications as prescribed. Of note, with his recent NSTEMI, he had aching chest pressure along his left lower sternal border which radiated into his left armpit region. He also noted brief lightheadedness and elevated blood pressure. Review of Systems: As noted in HPI. All other 10 point ROS otherwise negative. Past Medical/Surgical History 1. CAD status post RCA PCI x2 in 2012 at [facility] in [place], [place]. This included a proximal to mid RCA 4.5 x 18 mm bare metal stent post-dilated with a 4.5 mm noncompliant balloon. Distal RCA 2.5 x 18 mm Integrity drug-eluting stent post-dilated at 16 atmospheres with stent balloon. 2. Mid LAD STEMI status post aspiration thrombectomy and residual nonobstructive CAD. 3. Distal RCA NSTEMI status post PCI x2 with drug eluting stents 06/05/16 4. Subacute stent thrombosis distal RCA stent status post 1 additional overlapping BENITEZ 06/07/16 5. Acid reflux. 6. Hypertension. Family History Patient reports no known family medical history. No known history of premature CAD. Social History Smoking Status: Former Smoker History of Alcohol Use: Yes (2 glasses wine daily ) Quit smoking in 2015. Occasional alcohol. No drugs. He is . Three daughters. He and Rosibel, his daughter, live together. 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 Allergies Coded Allergies: Prasugrel (Unverified Allergy, Severe, skin blistering and peeling with burning and itching, 06/18/16) PER RODRIGUE'S NOTE HE TOLERATES PLAVIX Medications Current Inpatient Medications Medications (Trade) Dose Ordered Sig/Nasim Route Start Time Stop Time Status Last Admin Dose Admin Acetaminophen (Tylenol Tab) 650 mg Q4H PRN PO 06/18/16 13:45 07/18/16 13:44 Nitroglycerin (Nitrostat Tab) 0.4 mg UD PRN SL 06/18/16 13:45 07/18/16 13:44 Aspirin (Ecotrin Tab) 81 mg DAILY PO 06/19/16 09:00 07/19/16 08:59 06/19/16 08:08 81 MG Atorvastatin Calcium (Lipitor Tab) 80 mg QAM PO 06/19/16 09:00 07/19/16 08:59 06/19/16 08:08 80 MG Clopidogrel Bisulfate (plAVix TAB) 75 mg DAILY PO 06/19/16 09:00 07/19/16 08:59 06/19/16 08:08 75 MG Lisinopril (Zestril Tab) 5 mg QAM PO 06/19/16 09:00 07/19/16 08:59 06/19/16 08:08 5 MG Pantoprazole Sodium (Protonix Tab) 40 mg QAM PO 06/19/16 09:00 07/19/16 08:59 06/19/16 08:08 40 MG Potassium Chloride (Klor-Con Tab) 20 meq DAILY PO 06/18/16 14:30 07/18/16 14:29 06/19/16 08:08 20 MEQ Miscellaneous (Iv Fluids Completed) 1 ea PRN PRN N/A 06/18/16 14:45 06/18/17 14:44 Physical Exam Vital Signs Past 12 Hours Date Time Temp Pulse Resp B/P Pulse Ox O2 Delivery O2 Flow Rate FiO2 06/19/16 07:56 36.9 62 18 127/96 98 06/19/16 04:07 36.9 55 16 113/76 97 Room Air 06/19/16 04:00 97 Room Air 06/19/16 00:03 36.9 62 15 134/87 98 Room Air 06/19/16 00:01 98 Room Air Constitutional: Alert, oriented, in no acute distress HEENT: Extraocular muscles intact. Oral mucosa pink, moist, and intact. Sclera anticteric Neck: Supple, no JVD, no carotid bruits Pulmonary: Normal respiratory effort, clear to auscultation bilaterally Cardiac: Normal rate and rhythm, normal S1 and S2, no gallops, no rubs, no murmurs Extremities: No clubbing, cyanosis, or edema. Pulses 2+ and symmetric Abdomen: Normal bowel sounds, soft, non-tender, no abdominal mass palpated Skin: Normal skin color, turgor, and pigmentation, no rash, no skin lesions Neurological: Oriented to person, place, and time Data Laboratory Results: Last 24 Hours Test 06/18/16 11:35 06/18/16 12:31 06/18/16 22:00 06/18/16 22:07 White Blood Count 7.17 K/uL Red Blood Count 4.20 M/uL Hemoglobin 14.2 g/dL Hematocrit 40.3 % Mean Corpuscular Volume 96.0 fL Mean Corpuscular Hemoglobin 33.8 pg Mean Corpuscular Hemoglobin Concent 35.2 g/dl Platelet Count 264 K/uL Mean Platelet Volume 10.0 fL Neutrophils (%) (Auto) 57.0 % Lymphocytes (%) (Auto) 31.8 % Monocytes (%) (Auto) 9.3 % Eosinophils (%) (Auto) 1.5 % Basophils (%) (Auto) 0.3 % Neutrophils # (Auto) 4.08 K/uL Lymphocytes # (Auto) 2.28 K/uL Monocytes # (Auto) 0.67 K/uL Eosinophils # (Auto) 0.11 K/uL Basophils # (Auto) 0.02 K/uL RDW Standard Deviation 46.2 fL RDW Coefficient of Variation 13.2 % Immature Granulocyte % (Auto) 0.1 % Immature Granulocyte # (Auto) 0.01 K/uL Prothrombin Time 10.9 SECONDS Prothromb Time International Ratio 1.0 Activated Partial Thromboplast Time 23.8 SECONDS Partial Thromboplastin Ratio 0.9 Sodium Level 141 mmol/L Potassium Level 3.4 mmol/L Chloride Level 104 mmol/L Carbon Dioxide Level 27 mmol/L Anion Gap 10.0 mmol/L Blood Urea Nitrogen 6 mg/dl Creatinine 1.00 mg/dl Est Creatinine Clear Calc Drug Dose 87.9 ml/min Estimated GFR () 102.0 Estimated GFR (Non- 88.0 BUN/Creatinine Ratio 6.5 Random Glucose 85 mg/dl Calcium Level 9.0 mg/dl Bedside Troponin I 0.100 ng/ml Creatine Kinase MB Ratio Creatine Kinase MB 0.6 ng/ml Troponin I 0.111 ng/ml Test 06/19/16 06:00 06/19/16 06:04 Creatine Kinase MB Ratio White Blood Count 7.73 K/uL Red Blood Count 4.24 M/uL Hemoglobin 14.1 g/dL Hematocrit 40.3 % Mean Corpuscular Volume 95.0 fL Mean Corpuscular Hemoglobin 33.3 pg Mean Corpuscular Hemoglobin Concent 35.0 g/dl Platelet Count 234 K/uL Mean Platelet Volume 9.5 fL Neutrophils (%) (Auto) 52.2 % Lymphocytes (%) (Auto) 37.9 % Monocytes (%) (Auto) 7.9 % Eosinophils (%) (Auto) 1.6 % Basophils (%) (Auto) 0.3 % Neutrophils # (Auto) 4.04 K/uL Lymphocytes # (Auto) 2.93 K/uL Monocytes # (Auto) 0.61 K/uL Eosinophils # (Auto) 0.12 K/uL Basophils # (Auto) 0.02 K/uL RDW Standard Deviation 46.7 fL RDW Coefficient of Variation 13.4 % Immature Granulocyte % (Auto) 0.1 % Immature Granulocyte # (Auto) 0.01 K/uL Red Blood Cell Morphology Unremarkable Sodium Level 144 mmol/L Potassium Level 3.9 mmol/L Chloride Level 109 mmol/L Carbon Dioxide Level 25 mmol/L Anion Gap 10.0 mmol/L Blood Urea Nitrogen 6 mg/dl Creatinine 0.91 mg/dl Est Creatinine Clear Calc Drug Dose 97.2 ml/min Estimated GFR () 114.3 Estimated GFR (Non- 98.6 BUN/Creatinine Ratio 6.2 Random Glucose 81 mg/dl Calcium Level 8.9 mg/dl Creatine Kinase MB 0.7 ng/ml Troponin I 0.137 ng/ml Imaging: No active disease in chest. ECG: Normal sinus rhythm at 76 bpm. Inferior infarct. T wave inversion leads III and aVF (stable finding compared to ECG 06/08/16) Telemetry reviewed: Sinus rhythm and sinus bradycardia. Low rates in the upper 40's. Assessment & Plan ASSESSMENT/PLAN: 1. Hypertension: His blood pressure has been better controlled throughout the admission, however, his diastolic pressure continues to run high at times. Recommend increasing his Lisinopril dose to 5 mg twice daily for better control. 2. Coronary artery disease s/p intracoronary stenting: He denies any chest discomfort. ECG shows no acute ST T wave change. His Troponin level was 0.111 initially, which has trended down compared to his most recent admission (high of 9.25 at that time). His second set has increased slightly to 0.137. Recommend continuing to trend his enzymes and monitor his symptoms. Stat ECG for any chest pain. Continue dual antiplatelet therapy and high intensity statin therapy. Increase Lisinopril as noted above. Would avoid beta blockers due to his bradycardia. Thank you for allowing us to see this patient in consultation. Patient seen and discussed with Dr. Steele, and the plan was made in collaboration with him.
[2016-06-19] MEDS: LISINOPRIL 5 MG TAB PO SCH (20:43)
[2016-06-20] VITALS: O2SAT 97
[2016-06-20 00:03] VITALS: BP 102/77; PULSE 56; TEMP 36.8; O2SAT 97
[2016-06-20 04:21] VITALS: BP 111/74; PULSE 59; TEMP 37.4; O2SAT 98
[2016-06-20 07:44] VITALS: BP 122/74; PULSE 53; TEMP 36.8; O2SAT 97
[2016-06-20 08:00] VITALS: O2SAT 97
[2016-06-20] MEDS ORDERED: LSN5 PO (08:26)
[2016-06-20] MEDS: ASPIRIN 81 MG ECTAB PO SCH (08:28)
[2016-06-20] MEDS: LISINOPRIL 5 MG TAB PO SCH (08:29)
[2016-06-20] MEDS: CLOPIDOGREL BISULFATE 75 MG TAB PO SCH (08:29)
[2016-06-20] MEDS: PANTOprazole SOD 40 MG TAB PO SCH (08:29)
[2016-06-20] MEDS: ATORVASTATIN 40 MG TAB PO SCH (08:29)
--- NOTE | 2016-06-20 08:29 | Discharge Instructions ---
Discharge Instructions Admission Reason for Admission: Hypertension Discharge Discharge Diagnosis / Problem: hypertensive urgency Discharge Goals Goal(s): Diagnostic testing, Therapeutic intervention Activity Recommendations Activity Limitations: resume your previous activity . Instructions / Follow-Up Instructions / Follow-Up you may take your current lisinopril twice a day, a new RX is sent to pharmacy for twice a day supply Current Hospital Diet Patient's current hospital diet: Vegetarian Diet Discharge Diet Recommended Diet: Low Sodium Diet (2gm Na) Pending Studies Studies pending at discharge: no Medical Emergencies . Who to Call and When: Medical Emergencies: If at any time you feel your situation is an emergency, please call 911 immediately. . 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 . "Provider Documentation" section prepared by Garland De La Garza. VTE Core Measure Inpt VTE Proph given/why not?: Other Anticoagulation, SCD's
[2016-06-20] MEDS: POTASSIUM CHLORIDE 20 MEQ TABCR PO SCH (08:30)
[2016-06-20 09:30] LABS: BUN/CREATININE RATIO 7.1 (10-20); CALCIUM 9.1 mg/dl (8.5-10.1); CREATININE 0.98 mg/dl (0.60-1.40); POTASSIUM 4.4 mmol/L (3.5-5.1)
[2016-06-20 10:40] VITALS: BP 122/74; PULSE 53; TEMP 36.8; O2SAT 97
--- NOTE | 2016-06-20 11:51 | CARDIOLOGY PROGRESS NOTE ---
DATE: 06/20/2016 SUBJECTIVE: Mr. Bustamante is ambulating in the hallways without complaints. He is anxious for hospital discharge. He has not had recurrent chest discomfort or limiting dyspnea. Blood pressure has been well controlled. OBJECTIVE: VITAL SIGNS: Blood pressure 122/74 with a regular pulse of 50. Respiratory rate is 18 and the patient is afebrile at 36.8 degrees Celsius. Saturations 97% on room air. NECK: Supple with full carotid upstrokes. There are no carotid bruits. Jugular venous pressure is flat at 90 degrees. There is no thyromegaly. CARDIOVASCULAR: Reveals a regular rhythm with a normal S1 and S2. No S3, S4, or murmurs are noted. LUNGS: Clear without rales, rhonchi, or wheezes. ABDOMEN: Soft and nontender without bruits. EXTREMITIES: Reveal intact radial artery pulses bilaterally. There is no peripheral edema. DATA: CBC notes a hemoglobin of 14.1, hematocrit 40.3, white count 7.7, platelet count 234,000. Electrolytes note a sodium of 140, potassium 4.4, chloride 107, bicarbonate 24, BUN 7, creatinine 0.98, glucose 84. Troponin I level is down to 0.09 from a peak value yesterday of 0.137. bakery associate notes sinus rhythm without significant abnormalities. IMPRESSION AND PLAN: 1. Elevated troponin -- trending down from his events of late last month. No evidence of myocardial ischemia during this hospitalization. Stable for hospital discharge. 2. Coronary artery disease -- status post stents in the RCA in 2012. Mid LAD stent, aspiration thrombectomy in 2014. Distal RCA drug-eluting stents in 06/05/2016. Distal RCA stent 06/07/2016. Continue with medical management. 3. Subacute stent thrombosis -- distal RCA stent requiring additional stenting 06/07/2016. 4. Hypertension -- controlled. 5. Gastroesophageal reflux disease.
--- NOTE | 2016-06-20 14:28 | Discharge Summary ---
Discharge Summary Admission Date: Jun 18, 2016 at 13:49 Discharge Date: Jun 20, 2016 Discharge Disposition: Home Principal Diagnosis: hypertensive urgency, elevated troponin Problems/Secondary Diagnoses: (1) Hypertension Status: Chronic Consultations: Dr Steele Medication Reconciliation Changed Medications: Lisinopril (Lisinopril) 5 Mg Tab 5 MG PO BID for 30 Days, #60 TAB 2 Refills (Changed from: QAM; 30) Continued Medications: Aspirin (Aspirin Ec) 81 Mg Tab 81 MG PO DAILY Atorvastatin (Atorvastatin Calcium) 40 Mg Tab 80 MG PO QAM for 30 Days, #60 TAB 2 Refills Clopidogrel (Plavix) 75 Mg Tab 75 MG PO DAILY Nitroglycerin (Nitrostat) 0.4 Mg/1 Tab Subl 0.4 MG SL PRN PRN for Chest Pain for 30 Days, #30 TABS 1 Refill Pantoprazole (Pantoprazole Sodium) 40 Mg Tab 40 MG PO QAM for 30 Days, #30 TAB 2 Refills Discharge Exam Review of Systems: Constitutional: No chills, No fever, No weakness Respiratory: No cough, No shortness of breath, No sputum, No wheezing Cardiovascular: No PND, No chest pain Abdomen: No diarrhea, No nausea, No pain, No vomiting Genitourinary - Male: No dysuria, No hematuria Psychiatric: No anhedonism, No depression symptoms Physical Exam: General Appearance: WD/WN, + mild distress Neck: supple, no JVD Respiratory/Chest: chest non-tender, lungs clear, normal breath sounds Cardiovascular: regular rate, rhythm, no murmur Abdomen / GI: normal bowel sounds, non tender, soft Extremities: no pedal edema, normal range of motion Neurologic/Psychiatric: alert, oriented x 3 Skin: normal color, no rash Hospital Course 51 yo M with PMHx significant CAD recent hospitalization from 06/04/16-06/09/16 for NSTEMI s/p PCI x 2 in the RCA, former smoker (2 years total, 2-3 cigs daily , quit 1 year ago) presenting with hypertensive urgency and minor chest pain Hypertensive urgency, chest pain, asa 81 mg, plavix 75 mg daily, atorvastatin 80 mg daily, lisinopril will be increased to bid for better BP control , initially did have poor reaction to B John with syncope, so was not continued , Pt walked in unit, no further pain will be discharged with follow up in cardiology clinic Hypokalemia, replete GERD pantoprazole 40 mg daily DVT ppx: SCDs, OOB, CODE STATUS: FULL CODE Total Time Spent: Greater than 30 minutes This includes examination of the patient, discharge planning, medication reconciliation, and communication with other providers. Discharge Instructions Please refer to the electronic Patient Visit Report (Discharge Instructions) for additional information.
== END 2016-06-20 11:04 | disposition home or self-care (01) ==
LOC: ENRESERVTM → ENRESERVDT → C.EDB 11:05 → C.2E 13:49
PROVIDERS: ADMIT Hospitalist; ATTEND Internal Medicine
DX: I10 Essential (primary) hypertension (principal); E87.6 Hypokalemia; K21.9 Gastro-esophageal reflux disease without esophagitis; I25.2 Old myocardial infarction; Z87.891 Personal history of nicotine dependence; Z79.82 Long term (current) use of aspirin; Z79.02 Long term (current) use of antithrombotics/antiplatelets; I25.10 Atherosclerotic heart disease of native coronary artery without angina pectoris

== ENCOUNTER 2016-10-16 19:21 | Emergency (ER) | payer BC ==
[~2016-10-16] VITALS: Ht 165.1 cm; Wt 86.8 kg
[~2016-10-16 19:21] MED LIST changes: -PLV75 PO
[2016-10-16 19:25] VITALS: TEMP 36.8; Ht 165.1 cm; Wt 86.8 kg
[2016-10-16] MEDS ORDERED: FAMO1TAB47 PO (20:16)
--- NOTE | 2016-10-16 20:56 | DIAGNOSTIC IMAGING REPORT ---
CHEST ONE VIEW PORTABLE CLINICAL HISTORY: Hypertension. COMPARISON STUDY: Radiograph June 18, 2016. FINDINGS: Lung volumes are normal. There is no consolidation or evidence of pulmonary edema. No pneumothorax or pleural effusion is present. Moderate S-shaped scoliosis of the thoracic spine is noted. Cardiomediastinal silhouette is normal. IMPRESSION: No acute cardiopulmonary findings. Electronically signed by: Shane Booth M.D. 10/16/2016 8:55 PM Dictated Date/Time: 10/16/2016 8:55 PM
[2016-10-16 21:04] LABS: BASO % 0.3 %; BASO ABS # 0.02 K/uL (0-0.2); COMPLETE YES; EOS % 1.6 %; HEMATOCRIT 45.6 % (42-52); IG% 0.1 %; LYMPH % 33.2 %; LYMPH ABS # 2.49 K/uL (1.2-3.4); MEAN CORPUSCULAR HEMOGLOBIN 33.5 pg (25-34); MEAN CORPUSCULAR HGB CONC 35.3 g/dl (32-36); MEAN PLATELET VOLUME 9.8 fL (7.4-10.4); MONO % 10.4 %; NEUT % 54.4 %; PLATELET COUNT 220 K/uL (130-400); WHITE BLOOD COUNT 7.49 K/uL (4.8-10.8)
[2016-10-16 21:21] LABS: BLOOD UREA NITROGEN 8 mg/dl (7-18); BUN/CREATININE RATIO 8.4 (10-20); CARBON DIOXIDE 26 mmol/L (21-32); CHLORIDE 100 mmol/L (98-107); CREATININE 0.89 mg/dl (0.60-1.40); GLUCOSE 77 mg/dl (70-99); POTASSIUM 3.5 mmol/L (3.5-5.1); SODIUM 137 mmol/L (136-145)
[2016-10-16 22:02] VITALS: BP 155/107; PULSE 64; O2SAT 97
[2016-10-16 22:03] LABS: CALCIUM 8.9 mg/dl (8.5-10.1)
--- NOTE | 2016-10-16 22:10 | EMERGENCY ROOM VISIT NOTE ---
History First contact with patient: 19:49 Chief Complaint: HYPERTENSION Stated Complaint: HIGH BLOOD PRESSURE, HX OF MULTIPLE HEART ATTACKS History of Present Illness The patient is a 51 year old male who presents to the Emergency Room with complaints of high blood pressure. The patient states that he checks his blood pressure daily, and noticed that it was elevated today. He has a history of several MIs, per patient. He states that recently, he has improved his diet, started exercising, and has been checking his blood pressure every day. He takes lisinopril, 5 mg twice daily for his blood pressure. He reports that when he checked his blood pressure today, he noticed it was elevated at 158/ 107. He states that he took nitroglycerin for his blood pressure. He does report that he ate a sandwich with rodriguez on it and potato chips yesterday and feels this may have been the cause. He denies any chest pain, shortness of breath, nausea, vomiting, jaw or arm pain. Review of Systems A complete 10 point review of systems was reviewed with the patient with pertinent positives and negatives as per history of present illness. All else were negative. Past Medical/Surgical History Medical Problems: (1) Chest pain (2) Dehydration (3) Elevated blood pressure reading (4) Elevated troponin (5) Gastric reflux (6) Hypertension (7) NM (myocardial infarction) (8) NSTEMI (non-ST elevated myocardial infarction) (9) STEMI (ST elevation myocardial infarction) Surgical Problems: (1) H/O vasectomy (2) History of heart artery stent Family History Patient reports no known family medical history. Social History Smoking Status: Never Smoker Alcohol Use: occasionally Drug Use: none Marital Status: single Housing Status: lives alone Occupation Status: employed Current/Historical Medications Scheduled Aspirin (Aspirin Ec), 81 MG PO DAILY Atorvastatin (Atorvastatin Calcium), 80 MG PO QAM Clopidogrel (Plavix), 75 MG PO DAILY Famotidine (Famotidine), 20 MG PO DAILY Lisinopril (Lisinopril), 5 MG PO BID Scheduled PRN Nitroglycerin (Nitrostat), 0.4 MG SL PRN PRN for Chest Pain Allergies Coded Allergies: Prasugrel (Unverified Allergy, Severe, skin blistering and peeling with burning and itching, 06/18/16) PER RODRIGUE'S NOTE HE TOLERATES PLAVIX Physical Exam Vital Signs Date Time Temp Pulse Resp B/P (MAP) Pulse Ox O2 Delivery O2 Flow Rate FiO2 10/16/16 22:02 64 18 155/107 97 Room Air 10/16/16 20:02 61 10/16/16 19:49 146/100 10/16/16 19:25 36.8 72 18 159/101 97 Room Air Physical Exam VITALS: Vitals are noted on the nurse's note and reviewed by myself. Vital signs stable. GENERAL: This is a 51-year-old male, in no acute distress, nondiaphoretic, well- developed well-nourished. HEENT: Normocephalic. PERRLA. EOMI. Nares patent. Mucous membranes moist. Neck is supple without nuchal rigidity. HEART: Regular rate and rhythm without murmurs gallops or rubs. LUNGS: Clear to auscultation bilaterally without wheezes, rales or rhonchi. NEURO: Patient was alert and oriented to person place and time. Medical Decision & Procedures ER Provider Diagnostic Interpretation: CHEST ONE VIEW PORTABLE FINDINGS: Lung volumes are normal. There is no consolidation or evidence of pulmonary edema. No pneumothorax or pleural effusion is present. Moderate S-shaped scoliosis of the thoracic spine is noted. Cardiomediastinal silhouette is normal. IMPRESSION: No acute cardiopulmonary findings. Laboratory Results 10/16/16 20:52 Red Blood Count 4.80, Mean Corpuscular Volume 95.0, Mean Corpuscular Hemoglobin 33.5, Mean Corpuscular Hemoglobin Concent 35.3, Mean Platelet Volume 9.8, Neutrophils (%) (Auto) 54.4, Lymphocytes (%) (Auto) 33.2, Monocytes (%) (Auto) 10.4, Eosinophils (%) (Auto) 1.6, Basophils (%) (Auto) 0.3, Neutrophils # (Auto ) 4.07, Lymphocytes # (Auto) 2.49, Monocytes # (Auto) 0.78, Eosinophils # (Auto ) 0.12, Basophils # (Auto) 0.02 10/16/16 20:52 Test 10/16/16 20:52 White Blood Count 7.49 K/uL (4.8-10.8) Red Blood Count 4.80 M/uL (4.7-6.1) Hemoglobin 16.1 g/dL (14.0-18.0) Hematocrit 45.6 % (42-52) Mean Corpuscular Volume 95.0 fL (80-100) Mean Corpuscular Hemoglobin 33.5 pg (25-34) Mean Corpuscular Hemoglobin Concent 35.3 g/dl (32-36) Platelet Count 220 K/uL (130-400) Mean Platelet Volume 9.8 fL (7.4-10.4) Neutrophils (%) (Auto) 54.4 % Lymphocytes (%) (Auto) 33.2 % Monocytes (%) (Auto) 10.4 % Eosinophils (%) (Auto) 1.6 % Basophils (%) (Auto) 0.3 % Neutrophils # (Auto) 4.07 K/uL (1.4-6.5) Lymphocytes # (Auto) 2.49 K/uL (1.2-3.4) Monocytes # (Auto) 0.78 K/uL (0.11-0.59) Eosinophils # (Auto) 0.12 K/uL (0-0.5) Basophils # (Auto) 0.02 K/uL (0-0.2) RDW Standard Deviation 45.1 fL (36.4-46.3) RDW Coefficient of Variation 12.9 % (11.5-14.5) Immature Granulocyte % (Auto) 0.1 % Immature Granulocyte # (Auto) 0.01 K/uL (0.00-0.02) Anion Gap 11.0 mmol/L (3-11) Est Creatinine Clear Calc Drug Dose 101.7 ml/min Estimated GFR () 116.4 Estimated GFR (Non- 100.4 BUN/Creatinine Ratio 8.4 (10-20) Calcium Level 8.9 mg/dl (8.5-10.1) Troponin I < 0.015 ng/ml (0-0.045) ECG Rate (beats per minute): 67 Rhythm: normal sinus Findings: Q waves (Inferior), no acute ischemic change, no ectopy Change: no significant change ED Course The patient was evaluated as above. Labs were drawn and IV access was obtained. Patient was reevaluated and findings were discussed. His blood pressure is still elevated. Discharge instructions were reviewed with the patient. The patient verbalized understanding of my assessment and treatment plan and was discharged home in good condition. Medical Decision Differential diagnosis includes hypertensive urgency, hypertensive crisis, medication noncompliance, among others. The patient is a 51-year-old male who presents today complaining of hypertension. He has no other complaints at this time. There is no chest pain , shortness of breath or headache. Labs were unremarkable. Troponin is not elevated. EKG is unchanged from previous. The patient's blood pressure was persistently elevated, particularly his diastolic blood pressure which remained above 100. The patient is very anxious regarding his blood pressure and I feel this may be contributing. I do not feel that he needs his medications adjusted at this time, as this may cause hypotension at home. I recommended that he follow-up with his primary care provider this week to have his blood pressure rechecked in the office. It remains elevated, he may need his medications adjusted. The patient was reassured. He was agreeable to this treatment plan. The patient's case was reviewed with Dr. Kee, ED attending physician, who agreed with my assessment and treatment plan. Based on the patient's presentation and work up, I feel the patient is stable for outpatient treatment. The patient was educated to return to the emergency department for any worsening of their current condition or new/concerning symptoms. He will follow up with his PCP. Medication reconciliation: I attest that I have personally reviewed the patient 's current medication list. Blood pressure screening: Patient was found to have an elevated blood pressure and was referred to their primary care provider for recheck and further treatment. Impression Primary Impression: Elevated blood pressure reading Departure Information Dispostion Home / Self-Care Condition GOOD Referrals Alka. De La Cruz MD (PCP) Patient Instructions My [facility] Additional Instructions You were seen in the emergency Department today for your elevated blood pressure. This should be rechecked by your primary care provider this week. Return to the emergency department for chest pain, shortness of breath, severe headache or any other new/concerning symptoms.
[2016-12-02] MEDS ORDERED: PANT40TA2 PO (05:58)
== END 2016-10-16 22:19 | disposition home or self-care (01) ==
LOC: C.EDB 19:23
DX: R03.0 Elevated blood-pressure reading, without diagnosis of hypertension (principal); I25.2 Old myocardial infarction; K21.9 Gastro-esophageal reflux disease without esophagitis; I10 Essential (primary) hypertension; Z79.82 Long term (current) use of aspirin; Z79.02 Long term (current) use of antithrombotics/antiplatelets; Z79.899 Other long term (current) drug therapy

== ENCOUNTER 2016-12-02 05:21 | Emergency (ER) | payer BC ==
[~2016-12-02] VITALS: Ht 165.1 cm; Wt 88.1 kg
[~2016-12-02 05:21] MED LIST changes: +FAMO1TAB47 PO; -PRT40 PO
[2016-12-02 05:25] VITALS: TEMP 36.6; Ht 165.1 cm; Wt 88.1 kg
[2016-12-02] MEDS ORDERED: SODIUM CHLORIDE 0.9% 1000ML 1,000 ML IV ONE (05:45)
[2016-12-02] MEDS ORDERED: PRT/40 PO (05:58)
[2016-12-02 06:03] LABS: HEMATOCRIT 47.6 % (42-52); MEAN CELL VOLUME 96.2 fL (80-100); MEAN CORPUSCULAR HEMOGLOBIN 32.3 pg (25-34); MEAN CORPUSCULAR HGB CONC 33.6 g/dl (32-36); MEAN PLATELET VOLUME 10.2 fL (7.4-10.4); PLATELET COUNT 235 K/uL (130-400); RED BLOOD COUNT 4.95 M/uL (4.7-6.1); WHITE BLOOD COUNT 9.12 K/uL (4.8-10.8)
[2016-12-02 06:15] LABS: BUN/CREATININE RATIO 7.2 (10-20); CALCIUM 9.1 mg/dl (8.5-10.1); MAGNESIUM 2.2 mg/dl (1.8-2.4); POTASSIUM 3.8 mmol/L (3.5-5.1)
--- NOTE | 2016-12-02 06:17 | DIAGNOSTIC IMAGING REPORT ---
CHEST ONE VIEW PORTABLE CLINICAL HISTORY: Hypertension dyspnea COMPARISON STUDY: 10/16/2016 FINDINGS: The bones soft tissues and hemidiaphragms are normal. The cardiomediastinal silhouette is normal. The lungs are clear. The pulmonary vasculature is normal. IMPRESSION: Negative chest. The above report was generated using voice recognition software. It may contain grammatical, syntax or spelling errors. Electronically signed by: Chu Castillo M.D. 12/02/2016 6:16 AM Dictated Date/Time: 12/02/2016 6:14 AM
[2016-12-02 06:26] LABS: ALB/GLOB RATIO 1.1 (0.9-2); THYROID STIMULATING HORMONE 0.996 uIu/ml (0.300-4.500)
[2016-12-02 06:46] LABS: URINE APPEARANCE CLEAR (CLEAR); URINE BILIRUBIN NEG (NEG); URINE COLOR YELLOW; URINE NITRITE NEG (NEG); URINE PH 7.5 (4.5-7.5); URINE SPECIFIC GRAVITY 1.007 (1.000-1.030); UROBILINOGEN NEG (NEG); ZZUR CULT IF INDIC CLEAN CATCH NO
[2016-12-02 06:47] LABS: BASO % 0.2 %; BASO ABS # 0.02 K/uL (0-0.2); COMPLETE YES; EOS % 1.6 %; IG% 0.1 %; LYMPH % 51.4 %; LYMPH ABS # 4.69 K/uL (1.2-3.4); MONO % 9.4 %; NEUT % 37.3 %
[2016-12-02 06:55] LABS: MANUAL MICROSCOPIC REQUIRED? NO; REVIEW REQ? NO
[2016-12-02 07:59] VITALS: BP 135/95; PULSE 56; O2SAT 97
--- NOTE | 2016-12-02 21:57 | EMERGENCY ROOM VISIT NOTE ---
History First contact with patient: 05:28 Chief Complaint: HYPERTENSION Stated Complaint: HIGH BLOOD PRESSURE,SHAKING,HX HEART ATTACKS History of Present Illness The patient is a 51 year old male who presents to the Emergency Room with complaints of elevated blood pressure this morning. The patient has a history of heart attack in the past, roughly 1 and one 1/2 years ago. He states that ever since he has changed his diet (to exercise. The patient states that he was up all night watching movies, and began feeling shaky. The patient checked his blood pressure and states it was 160/100. He then began shaking worse, and rechecked his blood pressure by 15 minutes later and it was 160/110. The patient does take lisinopril daily, and took his medication, then came to the ER for evaluation. 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 The patient has not had fever or chills. He does not report chest pain, chest pressure, chest tightness, or shortness of breath. His symptoms. Isolated to his shaking and elevated blood pressure. He does not identify aggravating or alleviating factors. Review of Systems More than 10 systems were reviewed and otherwise negative with the exception of history of present illness. Past Medical/Surgical History Medical Problems: (1) Chest pain (2) Dehydration (3) Elevated blood pressure reading (4) Elevated troponin (5) Gastric reflux (6) Hypertension (7) ND (myocardial infarction) (8) NSTEMI (non-ST elevated myocardial infarction) (9) STEMI (ST elevation myocardial infarction) Surgical Problems: (1) H/O vasectomy (2) History of heart artery stent Family History Patient reports no known family medical history. Social History Smoking Status: Former Smoker Alcohol Use: occasionally Drug Use: none Marital Status: single Housing Status: lives alone Occupation Status: employed Current/Historical Medications Scheduled Aspirin (Aspirin Ec), 81 MG PO DAILY Atorvastatin (Atorvastatin Calcium), 80 MG PO QAM Clopidogrel (Plavix), 75 MG PO DAILY Lisinopril (Lisinopril), 5 MG PO BID Pantoprazole (Pantoprazole Sodium), 40 MG PO DAILY Scheduled PRN Nitroglycerin (Nitrostat), 0.4 MG SL PRN PRN for Chest Pain Physical Exam Vital Signs Date Time Temp Pulse Resp B/P (MAP) Pulse Ox O2 Delivery O2 Flow Rate FiO2 12/02/16 07:59 56 16 135/95 97 Room Air 12/02/16 07:23 56 16 132/94 97 Room Air 12/02/16 06:31 54 142/100 100 Room Air 12/02/16 06:01 77 137/105 98 Room Air 12/02/16 05:51 60 12/02/16 05:48 73 151/108 100 Room Air 12/02/16 05:45 Room Air 12/02/16 05:25 36.6 77 20 176/107 100 Room Air Physical Exam VITALS: Vitals are noted on the nurse's note and reviewed by myself. Vital signs with slightly elevated blood pressure GENERAL: Well-developed, well-nourished, black male, who appears very anxious on examination HEART: Regular rate and rhythm without murmurs gallops or rubs. LUNGS: Clear to auscultation bilaterally without wheezes, rales or rhonchi. No retractions or accessory muscle use. ABDOMEN: Positive normal bowel sounds x 4. Soft, nontender, without masses or organomegaly. No guarding or rebound tenderness. MUSCULOSKELETAL: No muscle atrophy, erythema, or edema noted. Full range of motion without joint tenderness in all extremities. Medical Decision & Procedures ER Provider Diagnostic Interpretation: CHEST ONE VIEW PORTABLE CLINICAL HISTORY: Hypertension dyspnea COMPARISON STUDY: 10/16/2016 FINDINGS: The bones soft tissues and hemidiaphragms are normal. The cardiomediastinal silhouette is normal. The lungs are clear. The pulmonary vasculature is normal. IMPRESSION: Negative chest. Laboratory Results 12/02/16 05:45 Red Blood Count 4.95, Mean Corpuscular Volume 96.2, Mean Corpuscular Hemoglobin 32.3, Mean Corpuscular Hemoglobin Concent 33.6, Mean Platelet Volume 10.2, Neutrophils (%) (Auto) 37.3, Lymphocytes (%) (Auto) 51.4, Monocytes (%) (Auto) 9.4, Eosinophils (%) (Auto) 1.6, Basophils (%) (Auto) 0.2, Neutrophils # (Auto) 3.39, Lymphocytes # (Auto) 4.69, Monocytes # (Auto) 0.86, Eosinophils # (Auto) 0.15, Basophils # (Auto) 0.02 12/02/16 05:45 Test 12/02/16 05:45 12/02/16 06:05 12/02/16 07:26 White Blood Count 9.12 K/uL (4.8-10.8) Red Blood Count 4.95 M/uL (4.7-6.1) Hemoglobin 16.0 g/dL (14.0-18.0) Hematocrit 47.6 % (42-52) Mean Corpuscular Volume 96.2 fL (80-100) Mean Corpuscular Hemoglobin 32.3 pg (25-34) Mean Corpuscular Hemoglobin Concent 33.6 g/dl (32-36) Platelet Count 235 K/uL (130-400) Mean Platelet Volume 10.2 fL (7.4-10.4) Neutrophils (%) (Auto) 37.3 % Lymphocytes (%) (Auto) 51.4 % Monocytes (%) (Auto) 9.4 % Eosinophils (%) (Auto) 1.6 % Basophils (%) (Auto) 0.2 % Neutrophils # (Auto) 3.39 K/uL (1.4-6.5) Lymphocytes # (Auto) 4.69 K/uL (1.2-3.4) Monocytes # (Auto) 0.86 K/uL (0.11-0.59) Eosinophils # (Auto) 0.15 K/uL (0-0.5) Basophils # (Auto) 0.02 K/uL (0-0.2) RDW Standard Deviation 46.2 fL (36.4-46.3) RDW Coefficient of Variation 13.1 % (11.5-14.5) Immature Granulocyte % (Auto) 0.1 % Immature Granulocyte # (Auto) 0.01 K/uL (0.00-0.02) Red Blood Cell Morphology Unremarkable Anion Gap 6.0 mmol/L (3-11) Est Creatinine Clear Calc Drug Dose 91.2 ml/min Estimated GFR () 102.0 Estimated GFR (Non- 88.0 BUN/Creatinine Ratio 7.2 (10-20) Calcium Level 9.1 mg/dl (8.5-10.1) Magnesium Level 2.2 mg/dl (1.8-2.4) Total Bilirubin 0.7 mg/dl (0.2-1) Aspartate Amino Transf (AST/SGOT) 22 U/L (15-37) Alanine Aminotransferase (ALT/SGPT) 35 U/L (12-78) Alkaline Phosphatase 57 U/L (45-117) Total Protein 8.1 gm/dl (6.4-8.2) Albumin 4.3 gm/dl (3.4-5.0) Globulin 3.8 gm/dl (2.5-4.0) Albumin/Globulin Ratio 1.1 (0.9-2) Lipase 287 U/L (73-393) Thyroid Stimulating Hormone (TSH) 0.996 uIu/ml (0.300-4.500) Urine Color YELLOW Urine Appearance CLEAR (CLEAR) Urine pH 7.5 (4.5-7.5) Urine Specific Totz 1.007 (1.000-1.030) Urine Protein NEG (NEG) Urine Glucose (UA) NEG (NEG) Urine Ketones NEG (NEG) Urine Occult Blood NEG (NEG) Urine Nitrite NEG (NEG) Urine Bilirubin NEG (NEG) Urine Urobilinogen NEG (NEG) Urine Leukocyte Esterase NEG (NEG) Bedside Troponin I < 0.030 ng/ml (0-0.045) Medications Administered Medications (Trade) Dose Ordered Sig/Nasim Route Start Time Stop Time Status Last Admin Dose Admin Sodium Chloride 1,000 ml @ 999 mls/hr Q1H1M ONCE IV 12/02/16 05:45 12/02/16 06:45 DC 12/02/16 05:49 999 MLS/HR ECG Change: Normal sinus rhythm @62bpm Inferior infarct (cited on or before 18-JUN-2016) Abnormal ECG When compared with ECG of 16-OCT-2016 19:45, No significant change was found ED Course Physical exam and history were performed. Nursing notes, EMR, and Medication List were personally reviewed. Patient appears to have reports of elevated blood pressure over the past hour. He took his lisinopril just prior to arrival. The patient is quite anxious on exam. He does have a cardiac history. IV access was established and labs were obtained. X-ray and EKG were performed. The patient was hydrated with normal saline. He does not have pain or shortness of breath. He does take aspirin and Plavix daily. He does not appear to need nitroglycerin at this time. The patient's blood work is as above and was reviewed. He does not have a significantly elevated white blood cell count or gross anemia, bandemia, or significant electrolyte imbalance. Lipase and transaminases are nondiagnostic. Troponin 2 is negative. His remaining blood work is unremarkable. X-ray does not show acute process. EKG is unchanged from previous. Overall the patient appears stable for discharge home. The patient's blood work began to normalize here in the department. He has had episodes like this in the past, and I feel a lot of his symptoms are related to anxiety. The patient needs to follow with his aircraft launch and recovery technician by telephone in the morning and should continue his medications as prescribed. The patient was pleased with plan of care voice understanding. He rated his discomfort a 0/10 at the time of departure. The chart was completed utilizing [employer] Speech Voice Recognition Software. Grammatical errors, random word insertions, pronoun errors, and incomplete sentences are an occasional consequence of this system due to software limitations, ambient noise, and hardware issues. Any formal questions or concerns about the content, text, or information contained within the body of this dictation should be directly addressed to the provider for clarification. . Medical Decision Differential diagnosis includes, but is not limited to: Myocardial infarction, dysrhythmia, pericarditis, pneumothorax, aortic aneurysm/dissection, DVT/PE, anxiety, GERD, PUD, electrolyte imbalance, thyroid disorder, pneumonia, bronchitis, pancreatitis, and others Medication Reconcilliation Current Medication List: was personally reviewed by me Blood Pressure Screening Patient's blood pressure: Elevated blood pressure Blood pressure disposition: Referred to PCP, Did not require urgent referral Impression Primary Impression: Elevated blood pressure reading Departure Information Referrals Alka. De La Cruz MD (PCP) Patient Instructions My [facility]
== END 2016-12-02 08:05 | disposition home or self-care (01) ==
LOC: C.EDB 05:22 → C.EDA 08:05
DX: I10 Essential (primary) hypertension (principal); K21.9 Gastro-esophageal reflux disease without esophagitis; I25.2 Old myocardial infarction; Z98.61 Coronary angioplasty status; Z98.52 Vasectomy status; Z87.891 Personal history of nicotine dependence; Z79.82 Long term (current) use of aspirin; Z79.899 Other long term (current) drug therapy

== ENCOUNTER → 2017-02-11 | Outpatient (CLI) | payer BC ==
[~2017-02-11] MED LIST changes: -FAMO1TAB47 PO; +PRT/40 PO
[2017-02-11 16:35] LABS: HEMATOCRIT 45.7 % (42-52); MEAN CELL VOLUME 95.4 fL (80-100); MEAN CORPUSCULAR HEMOGLOBIN 32.8 pg (25-34); MEAN CORPUSCULAR HGB CONC 34.4 g/dl (32-36); MEAN PLATELET VOLUME 10.4 fL (7.4-10.4); PLATELET COUNT 228 K/uL (130-400); RED BLOOD COUNT 4.79 M/uL (4.7-6.1); WHITE BLOOD COUNT 6.19 K/uL (4.8-10.8)
[2017-02-11 17:06] LABS: BLOOD UREA NITROGEN 5 mg/dl (7-18); BUN/CREATININE RATIO 5.7 (10-20); CALCIUM 9.6 mg/dl (8.5-10.1); CARBON DIOXIDE 27 mmol/L (21-32); CHLORIDE 107 mmol/L (98-107); CREATININE 0.94 mg/dl (0.60-1.40); GLUCOSE 75 mg/dl (70-99); POTASSIUM 4.4 mmol/L (3.5-5.1); SODIUM 140 mmol/L (136-145)
[2017-02-11 17:10] LABS: ALKALINE PHOSPHATASE 51 U/L (45-117); ALT/SGPT 33 U/L (12-78); AST/SGOT 26 U/L (15-37)
== END | disposition home or self-care (01) ==
LOC: C.LAB1850 15:22
PROVIDERS: ATTEND Physician Assistant
DX: I25.10 Atherosclerotic heart disease of native coronary artery without angina pectoris (principal)

== ENCOUNTER 2017-07-19 09:49 | Emergency (ER) | payer BC ==
[~2017-07-19] VITALS: Ht 165.1 cm; Wt 82.4 kg
[~2017-07-19 09:49] MED LIST changes: +PANT40TA2 PO; -PRT/40 PO
[2017-07-19 09:53] VITALS: Ht 165.1 cm; Wt 82.4 kg
[2017-07-19] MEDS ORDERED: ASPIRIN 81 MG CHEW PO STA (10:34)
--- NOTE | 2017-07-19 10:35 | EMERGENCY ROOM VISIT NOTE ---
History Report prepared by Andrew: Bessy Salvador Under the Supervision of: Dr. Leonid Vaughn M.D. First contact with patient: 10:03 Chief Complaint: HYPERTENSION Stated Complaint: ELEVATED BLOOD PRESSURE History of Present Illness The patient is a 52 year old male who presents to the Emergency Room with complaints of chronic hypertension for years, however presented to the emergency department today because it was more elevated than usual after he went on a 4 mile run. He notes he takes his blood pressure on a daily basis to monitor it and noticed it had been increasing over the past couple of days. He denies any chest pain, shortness of breath, abdominal pain, vomiting, diarrhea, or difficulty breathing. He has been under a lot of stress at work which he feels could be contributing to his high blood pressure. Source of History: patient Onset: chronic for years, more elevated than normal today Position: other (global ) Quality: other (hypertension) Timing: worsening Associated Symptoms: No chest pain, No vomiting, No abdominal pain, No diarrhea Note: Negative difficulty breathing. Review of Systems See HPI for pertinent positives and negatives. A total of ten systems were reviewed and were otherwise negative. Past Medical & Surgical Medical Problems: (1) Chest pain (2) Dehydration (3) Elevated blood pressure reading (4) Elevated troponin (5) Gastric reflux (6) Hypertension (7) [place] (myocardial infarction) (8) NSTEMI (non-ST elevated myocardial infarction) (9) STEMI (ST elevation myocardial infarction) Surgical Problems: (1) H/O vasectomy (2) History of heart artery stent Family History FH: heart disease High blood pressure Social History Smoking Status: Never Smoker Alcohol Use: occasionally Drug Use: none Marital Status: single Housing Status: lives alone Occupation Status: employed Current/Historical Medications Scheduled Aspirin (Aspirin Ec), 81 MG PO DAILY Atorvastatin (Lipitor), 80 MG PO QAM Clopidogrel (Plavix), 75 MG PO DAILY Lisinopril (Lisinopril), 5 MG PO BID Scheduled PRN Nitroglycerin (Nitrostat), 0.4 MG SL PRN PRN for Chest Pain Allergies Coded Allergies: Prasugrel (Unverified Allergy, Severe, skin blistering and peeling with burning and itching, 07/19/17) PER RODRIGUE'S NOTE HE TOLERATES PLAVIX Physical Exam Vital Signs Date Time Temp Pulse Resp B/P (MAP) Pulse Ox O2 Delivery O2 Flow Rate FiO2 07/19/17 14:23 36.9 74 16 133/100 98 07/19/17 13:57 75 16 111/82 98 07/19/17 13:18 72 07/19/17 12:57 98 Room Air 07/19/17 12:01 131/89 07/19/17 11:15 143/93 07/19/17 11:01 139/88 07/19/17 10:49 71 15 98 07/19/17 10:31 149/97 07/19/17 10:19 85 13 98 07/19/17 10:09 81 07/19/17 10:08 81 14 161/100 100 Room Air 07/19/17 10:07 161/100 07/19/17 09:53 36.9 81 18 147/119 99 Room Air Physical Exam Physical Exam GENERAL: He is oriented to person, place, and time. He appears well-developed and well-nourished. He does not appear distressed. ____ HENT: Exam performed. Head: Normocephalic and atraumatic. Right Ear: External ear normal. No mastoid tenderness. Left Ear: External ear normal. No mastoid tenderness. Mouth/Throat: The oropharynx is clear and moist. No trismus in the jaw. No dental abscesses or uvula swelling. No oropharyngeal exudate or tonsillar abscesses. ____ EYES: Funduscopic exam shows papilledema or AV nicking bilaterally NECK: Normal range of motion. Neck supple. No JVD present. No spinous process tenderness present. No carotid bruit present. No rigidity. No tracheal deviation and normal range of motion present. No Brudzinski's sign and no Kernig 's sign noted. ____ CV: Normal rate, regular rhythm, normal heart sounds and intact distal pulses. There is no peripheral edema. Palpable radial pulses bue. ____ PULM/CHEST: Effort normal and breath sounds normal. No respiratory distress. No stridor. He has no wheezes. He has no rales. Chest Wall: He exhibits no tenderness. ____ ABD: The abdomen is soft. Bowel sounds are normal. He has no distension. No mass is present. There is no tenderness. There is no rebound, no guarding, no Blas's sign and no tenderness at McBurney's point. Rovsig negative MUSC/SKEL: Normal range of motion. There is no peripheral edema, tenderness or deformity. LYMPH: No cervical adenopathy. ____ NEURO: He is alert and oriented to person, place, and time. He has normal strength. No cranial nerve deficit or sensory deficit. Coordination and gait normal. GCS eye subscore is 4. GCS verbal subscore is 5. GCS motor subscore is 6. Cerebellar tests wnl. ____ SKIN: Skin is warm and dry. He is not diaphoretic. ____ PSYCH: He has a normal mood and affect. His behavior is normal. Judgment and thought content normal. ____ Medical Decision & Procedures ER Provider Diagnostic Interpretation: Radiology results as stated below per my review and radiologist interpretation: CHEST 2 VIEWS ROUTINE HISTORY: 52 years-old Male cp acute atypical chest pain COMPARISON: Chest radiograph 12/02/2016 TECHNIQUE: PA and lateral views of the chest FINDINGS: Cardiomediastinal and hilar silhouettes are within normal limits. Coronary arterial stent graft is noted. No pneumothorax, pleural effusion, focal airspace consolidation or overt pulmonary edema. Levoscoliosis of the lumbar spine. Bones appear grossly intact. Degenerative changes are noted throughout the spine and shoulders. IMPRESSION: No acute process. The above report was generated using voice recognition software. It may contain grammatical, syntax or spelling errors. Electronically signed by: Derrick Leon M.D. 07/19/2017 11:44 AM Dictated Date/Time: 07/19/2017 11:43 AM Laboratory Results 07/19/17 10:35 Red Blood Count 4.58, Mean Corpuscular Volume 94.8, Mean Corpuscular Hemoglobin 33.8, Mean Corpuscular Hemoglobin Concent 35.7, Mean Platelet Volume 9.7, Neutrophils (%) (Auto) 53.5, Lymphocytes (%) (Auto) 35.4, Monocytes (%) (Auto) 10.1, Eosinophils (%) (Auto) 0.8, Basophils (%) (Auto) 0.2, Neutrophils # (Auto ) 2.80, Lymphocytes # (Auto) 1.85, Monocytes # (Auto) 0.53, Eosinophils # (Auto ) 0.04, Basophils # (Auto) 0.01 07/19/17 10:35 Test 07/19/17 10:35 07/19/17 10:41 07/19/17 10:45 07/19/17 13:05 White Blood Count 5.23 K/uL (4.8-10.8) Red Blood Count 4.58 M/uL (4.7-6.1) Hemoglobin 15.5 g/dL (14.0-18.0) Hematocrit 43.4 % (42-52) Mean Corpuscular Volume 94.8 fL (80-100) Mean Corpuscular Hemoglobin 33.8 pg (25-34) Mean Corpuscular Hemoglobin Concent 35.7 g/dl (32-36) Platelet Count 206 K/uL (130-400) Mean Platelet Volume 9.7 fL (7.4-10.4) Neutrophils (%) (Auto) 53.5 % Lymphocytes (%) (Auto) 35.4 % Monocytes (%) (Auto) 10.1 % Eosinophils (%) (Auto) 0.8 % Basophils (%) (Auto) 0.2 % Neutrophils # (Auto) 2.80 K/uL (1.4-6.5) Lymphocytes # (Auto) 1.85 K/uL (1.2-3.4) Monocytes # (Auto) 0.53 K/uL (0.11-0.59) Eosinophils # (Auto) 0.04 K/uL (0-0.5) Basophils # (Auto) 0.01 K/uL (0-0.2) RDW Standard Deviation 44.3 fL (36.4-46.3) RDW Coefficient of Variation 12.8 % (11.5-14.5) Immature Granulocyte % (Auto) 0.0 % Immature Granulocyte # (Auto) 0.00 K/uL (0.00-0.02) Est Creatinine Clear Calc Drug Dose 94.9 ml/min Estimated GFR () 112.0 Estimated GFR (Non- 96.6 BUN/Creatinine Ratio 12.9 (10-20) Calcium Level 8.5 mg/dl (8.5-10.1) Bedside Troponin I < 0.030 ng/ml (0-0.045) Bedside Hemoglobin 15.0 g/dl (14.0-18.0) Bedside Hematocrit 44 % (42-52) Bedside Sodium 141 mEq/L (135-144) Bedside Potassium 3.8 mEq/L (3.3-5.0) Bedside Chloride 103 mEq/L (101-112) Bedside Total CO2 27 mEq/l (24-31) Anion Gap 17.0 mmol/L (16-25) Bedside Blood Urea Nitrogen 12 mg/dl (7-18) Bedside Creatinine 0.9 mg/dl (0.6-1.3) Bedside Glucose (other) 79 mg/dl (70-99) Bedside Ionized Calcium (Mariella) 1.12 mmol/l (1.12-1.32) Troponin I < 0.015 ng/ml (0-0.045) Laboratory results reviewed by me Medications Administered Medications (Trade) Dose Ordered Sig/Nasim Route Start Time Stop Time Status Last Admin Dose Admin Aspirin (Aspirin Chew) 324 mg NOW STAT PO 07/19/17 10:34 07/19/17 10:35 DC 07/19/17 10:51 324 MG ECG Per My Interpretation Indication: other (hypertension ) Rate (beats per minute): 80 Rhythm: sinus rhythm Findings: T-wave inversion (mild in lead 3), other (AZ and QTC within normal limits, and no ST elevation or depression ) Comparison ECG Date: 06/18/16 Change: no significant change ED Course 1019: The patient was evaluated in room B10. A complete history and physical exam was performed. EMR reviewed. Patient had a cardiac cath done on 06/07/16 which showed a normal left main, mild stenosis of the left LAD 40%, normal circumplex, and a distal subacute thrombosis or the RCA. The distal RCA which was restented. 1034: Aspirin 324 mg PO 1411: Vital signs are stable. Imaging and labs including 2 sets of troponins are within normal limits. Patient's blood pressure normalized without intervention. He has remained symptom-free during his emergency department stay. DISCHARGE - Plan of care discussed with patient and questions answered. The patient was given both verbal and printed discharge instructions. The patient verbalized understanding and ability to comply. The patient is to seek outpatient follow up as noted in the discharge instructions. The patient verbalized understanding and ability to comply. The patient is discharged in stable condition. The patient was instructed to return for worsening symptoms. Medical Decision Vital signs are stable. Imaging and labs including 2 sets of troponins are within normal limits. Patient's blood pressure normalized without intervention. He has remained symptom-free during his emergency department stay. DISCHARGE - Plan of care discussed with patient and questions answered. The patient was given both verbal and printed discharge instructions. The patient verbalized understanding and ability to comply. The patient is to seek outpatient follow up as noted in the discharge instructions. The patient verbalized understanding and ability to comply. The patient is discharged in stable condition. The patient was instructed to return for worsening symptoms. Medication Reconcilliation Current Medication List: was personally reviewed by me Blood Pressure Screening Patient's blood pressure: Normal blood pressure Blood pressure disposition: Did not require urgent referral Impression Primary Impression: Hypertension Scribe Attestation The scribe's documentation has been prepared under my direction and personally reviewed by me in its entirety. I confirm that the note above accurately reflects all work, treatment, procedures, and medical decision making performed by me. The chart was completed utilizing [email or web address] Speech voice recognition software. Grammatical errors, random word insertions, pronoun errors, and incomplete sentences are an occasional consequence of this system due to software limitations, ambient noise, and hardware issues. Any formal questions or concerns about the content, text, or information contained within the body of this dictation should be directly addressed to the physician for clarification. Departure Information Dispostion Home / Self-Care Referrals No Doctor, Assigned (PCP) Forms HOME CARE DOCUMENTATION FORM, IMPORTANT VISIT INFORMATION, WORK / SCHOOL INSTRUCTIONS Patient Instructions My [facility] Additional Instructions Follow-up with your primary care physician on Friday. Problem Qualifiers Primary Impression: Hypertension Hypertension type: unspecified Qualified Codes: I10 - Essential (primary) hypertension
[2017-07-19 10:55] LABS: BASO % 0.2 %; BASO ABS # 0.01 K/uL (0-0.2); EOS % 0.8 %; EOS ABS # 0.04 K/uL (0-0.5); HEMATOCRIT 43.4 % (42-52); HEMOGLOBIN 15.5 g/dL (14.0-18.0); LYMPH % 35.4 %; LYMPH ABS # 1.85 K/uL (1.2-3.4); MEAN CELL VOLUME 94.8 fL (80-100); MEAN CORPUSCULAR HEMOGLOBIN 33.8 pg (25-34); MEAN CORPUSCULAR HGB CONC 35.7 g/dl (32-36); MEAN PLATELET VOLUME 9.7 fL (7.4-10.4); MONO % 10.1 %; MONO ABS # 0.53 K/uL (0.11-0.59); NEUT % 53.5 %; PLATELET COUNT 206 K/uL (130-400); RED CELL DISTRIBUTION WIDTH CV 12.8 % (11.5-14.5); RED CELL DISTRIBUTION WIDTH SD 44.3 fL (36.4-46.3); WHITE BLOOD COUNT 5.23 K/uL (4.8-10.8)
[2017-07-19 10:57] LABS: ISTAT CREATININE 0.9 mg/dl (0.6-1.3); ISTAT IONIZED CALCIUM 1.12 mmol/l (1.12-1.32); ISTAT POTASSIUM 3.8 mEq/L (3.3-5.0)
[2017-07-19 11:10] LABS: BLOOD UREA NITROGEN 12 mg/dl (7-18); CALCIUM 8.5 mg/dl (8.5-10.1); CARBON DIOXIDE 28 mmol/L (21-32); CREATININE 0.92 mg/dl (0.60-1.40); GLUCOSE 75 mg/dl (70-99); POTASSIUM 3.9 mmol/L (3.5-5.1); SODIUM 140 mmol/L (136-145)
--- NOTE | 2017-07-19 11:45 | DIAGNOSTIC IMAGING REPORT ---
CHEST 2 VIEWS ROUTINE HISTORY: 52 years-old Male cp acute atypical chest pain COMPARISON: Chest radiograph 12/02/2016 TECHNIQUE: PA and lateral views of the chest FINDINGS: Cardiomediastinal and hilar silhouettes are within normal limits. Coronary arterial stent graft is noted. No pneumothorax, pleural effusion, focal airspace consolidation or overt pulmonary edema. Levoscoliosis of the lumbar spine. Bones appear grossly intact. Degenerative changes are noted throughout the spine and shoulders. IMPRESSION: No acute process. The above report was generated using voice recognition software. It may contain grammatical, syntax or spelling errors. Electronically signed by: Derrick Leon M.D. 07/19/2017 11:44 AM Dictated Date/Time: 07/19/2017 11:43 AM
[2017-07-19 12:57] VITALS: O2SAT 98
[2017-07-19 14:23] VITALS: BP 133/100; PULSE 74; TEMP 36.9; O2SAT 98
== END 2017-07-19 14:25 | disposition home or self-care (01) ==
LOC: C.EDB 09:51
DX: I10 Essential (primary) hypertension (principal); I25.2 Old myocardial infarction; Z79.82 Long term (current) use of aspirin; Z88.8 Allergy status to other drugs, medicaments and biological substances; Z95.5 Presence of coronary angioplasty implant and graft; Z82.49 Family history of ischemic heart disease and other diseases of the circulatory system

== ENCOUNTER 2018-10-21 05:02 | Inpatient (IN) ==
--- OUTSIDE RECORDS SUMMARY | 2018-10-21 05:04 | External Medical Summary | Continuity of Care Document ---
:1965 Author Name Kassandra Levin, Provider Address Unavailable Unavailable , Care Team Providers Name Role Phone Chaitanya Steele M.D. Unavailable [email or web address] Unavailable Unavailable Unavailable Unavailable Problems Benign essential hypertension (401.1) (I10) Hypercholesterolemia (272.0) (E78.00) Presence of stent in LAD coronary artery (V45.82) (Z95.5) CAD (coronary artery disease) (414.00) (I25.10) Allergies and Adverse Reactions Effient TABS (Allergy) Medications Aspirin 81 MG Oral Tablet Delayed Release; TAKE 1 TABLET BY MOUTH DAILY Refills: 0 Clopidogrel Bisulfate 75 MG Oral Tablet; TAKE 1 TABLET DAILY. Ollie Steele Start: 08-Mar-2015 Quantity: 90 Refills: 3 Atorvastatin Calcium 40 MG Oral Tablet; TAKE 1 TABLET AT BEDTIME Ollie Steele Quantity: 30 Refills: 5 Procedures AST Date: 24-Aug-2018 ALT Date: 24-Aug-2018 Lipid Profile - Fasting Date: 24-Aug-2018 Immunizations Immunizations not documented Social History - Smoking Status Former smoker Plan of Treatment Planned Encounters Appointment; Chaitanya Steele M.D. Start: 01-Mar-2019 11:15 R equest Planned Observations Planned Goals not documented Results No Known Results Results not documented Encounters Appointment; Chaitanya Steele M.D. 24-Aug-2018 15:30 Encounter Diagnosis: Problem not documented Appointment; Chaitanya Steele M.D. 18-Feb-2018 10:15 Encounter Diagnosis: Problem not documented Appointment; Chaitanya Steele M.D. 19-Aug-2017 10:00 Encounter Diagnosis: Problem not documented Appointment; Elif Ivy PA-C 11-Feb-2017 14:30 Encounter Diagnosis: Problem not documented Appointment; Chaitanya Steele M.D. 01-Mar-2019 11:15 Encounter Diagnosis: Problem not documented
[2018-10-21] MEDS ORDERED: NITROGLYCERIN 2% OINTMENT 30GM TUBE EXT ONE (05:18)
[2018-10-21] MEDS ORDERED: ASPIRIN 81 MG CHEW PO STA (05:18)
[2018-10-21] MEDS ORDERED: SODIUM CHLORIDE 0.9% 1000ML 1,000 ML IV SCH ×2 (05:30→09:30)
[2018-10-21 05:39] LABS: Basophils # (auto) 0.02 K/uL (0-0.2); Basophils % (auto) 0.2 %; Eosinophils # (auto) 0.18 K/uL (0-0.5); Hemoglobin 15.9 g/dL (14.0-18.0); Immature Granulocytes # (auto) 0.01 K/uL (0.00-0.02); Immature Granulocytes % (auto) 0.1 %; Lymphocytes # (auto) 4.11 K/uL (1.2-3.4); Lymphocytes % (auto) 44.9 %; Mean Corpuscular Hgb Conc 35.3 g/dL (32-36); Mean Corpuscular Volume 95.3 fL (80-100); Mean Platelet Volume 10.4 fL (7.4-10.4); Monocytes # (auto) 0.82 K/uL (0.11-0.59); Neutrophils # (auto) 4.01 K/uL (1.4-6.5); Neutrophils % (auto) 43.8 %; Platelet Count 209 K/uL (130-400); RDW Coefficient of Variation 13.1 % (11.5-14.5); RDW Standard Deviation 45.4 fL (36.4-46.3); Red Blood Count 4.72 M/uL (4.7-6.1); White Blood Count 9.15 K/uL (4.8-10.8)
[2018-10-21] MEDS ORDERED: HydrALAZINE HCL 20 MG/ML VIAL IV STA (05:43)
--- NOTE | 2018-10-21 05:49 | Emergency Department Note ---
History of Present Illness General Chief complaint: Hypertension Stated complaint: RISING BLOOD PRESSURE-HX HEARTATTACK Time Seen by Provider: 10/21/18 05:12 History of Present Illness Maximum Pain Intensity: 3 This is a 53-year-old male presenting to the emergency department for evaluation of atypical chest discomfort that began approximately 1 hour prior to arrival between 4 and 4:30 AM. The patient does have a history of cardiac disease including myocardial infarction with 2 stents. He follows with Dr. Steele of cardiology locally. The patient describes his chest discomfort as emptiness above his sternum that is expanding into his left side chest. He does not have distinct pain at this time. This is similar to his first heart attack. The patient is very active, and states that he did swim half a mile yesterday and 1 mile over the weekend. The patient states that at one time he did have nitroglycerin, but has not had to use it in a long time was unsure where he was. He has not had recent fevers or chills. He does not feel lightheaded or short of breath. He did note that his blood pressure was elevated prior to arrival, causing him concern. He rates his current discomfort a 3/10. Home Medications Home Medications Medication Instructions Recorded Confirmed Type aspirin [Aspir-81] 81 mg PO DAILY 06/30/18 10/21/18 History atorvastatin 40 mg PO DAILY 06/30/18 10/21/18 History clopidogrel 75 mg PO DAILY 06/30/18 10/21/18 History famotidine 20 mg PO DAILY 06/30/18 10/21/18 History Allergies Allergy/AdvReac Type Severity Reaction Status Date / Time prasugrel Allergy Severe skin Unverified 06/30/18 11:56 blistering and peeling with burning and itching Past Med/Surg History Medical History Hypertension (Chronic) CO (myocardial infarction) (Resolved) STEMI (ST elevation myocardial infarction) (Resolved) Elevated troponin (Resolved) Social History Preferred Language: Croatian Communication Ability: Effective Waterway Traffic Checker Required: No Beliefs That Will Affect Care: None Current Living Situation: Family Other Information That Helps Us Care for You: No Feels Safe at Home: Yes Smoking Status: Former smoker Do You Dip or Chew Tobacco: No Second Hand Exposure: Yes Tobacco Cessation Education Requested by Patient: No Hx Alcohol Use: Yes Alcohol type: wine Hx Substance Use: No Review of Systems A total of 10 systems reviewed and were otherwise negative Physical Exam Vital Signs Vital Signs - 24 hr 10/21/18 05:06 10/21/18 05:12 10/21/18 05:21 Temperature 37.1 C Temperature Source Oral Sepsis Recent Fever Within 48 Hours No Sepsis Action Taken by Nursing No Action Required Pulse Rate 70 68 Pulse Rate [Apical] Pulse Rate from SpO2 Sensor 68 Respiratory Rate 16 15 Respiratory Effort / Characteristics Non-Labored Spontaneous Respiratory Depth Normal Respiratory Pattern Regular Blood Pressure 187/130 H 163/115 H Blood Pressure [Right Arm] Blood Pressure Mean 149 131 Blood Pressure Mean [Right Arm] Blood Pressure Position Sitting Pulse Oximetry 98 98 Oxygen Delivery Method Room Air Room Air 10/21/18 05:37 10/21/18 05:43 10/21/18 05:45 Temperature Temperature Source Sepsis Recent Fever Within 48 Hours Sepsis Action Taken by Nursing Pulse Rate 70 64 Pulse Rate [Apical] 63 Pulse Rate from SpO2 Sensor 71 65 Respiratory Rate 22 14 13 Respiratory Effort / Characteristics Respiratory Depth Respiratory Pattern Blood Pressure 148/112 H 172/118 H Blood Pressure [Right Arm] 164/112 H Blood Pressure Mean 124 136 Blood Pressure Mean [Right Arm] 129 Blood Pressure Position Pulse Oximetry 97 96 97 Oxygen Delivery Method Room Air 10/21/18 06:00 10/21/18 06:15 10/21/18 06:31 Temperature Temperature Source Sepsis Recent Fever Within 48 Hours Sepsis Action Taken by Nursing Pulse Rate Pulse Rate [Apical] 74 74 82 Pulse Rate from SpO2 Sensor Respiratory Rate 14 16 19 Respiratory Effort / Characteristics Respiratory Depth Respiratory Pattern Blood Pressure Blood Pressure [Right Arm] 155/107 H 164/109 H 194/109 H Blood Pressure Mean Blood Pressure Mean [Right Arm] 123 127 137 Blood Pressure Position Pulse Oximetry 96 Oxygen Delivery Method 10/21/18 06:36 Temperature Temperature Source Sepsis Recent Fever Within 48 Hours Sepsis Action Taken by Nursing Pulse Rate Pulse Rate [Apical] Pulse Rate from SpO2 Sensor Respiratory Rate Respiratory Effort / Characteristics Respiratory Depth Respiratory Pattern Blood Pressure Blood Pressure [Right Arm] Blood Pressure Mean Blood Pressure Mean [Right Arm] Blood Pressure Position Pulse Oximetry Oxygen Delivery Method Room Air VITALS: Vitals are noted on the nurse's note and reviewed by myself. Vital signs with noted hypertension GENERAL: Well-developed, well-nourished, black male, who is in no acute distress and resting comfortably. Patient is cooperative with the examination. HEAD: Normocephalic atraumatic. NECK: Supple without nuchal rigidity. No lymphadenopathy. No thyromegaly. Cervical spine is nontender. HEART: Regular rate and rhythm without murmurs gallops or rubs. LUNGS: Clear to auscultation bilaterally without wheezes, rales or rhonchi. No retractions or accessory muscle use. ABDOMEN: Positive normal bowel sounds x 4. Soft, nontender, without masses or organomegaly. No guarding or rebound tenderness. MUSCULOSKELETAL: No muscle atrophy, erythema, or edema noted. Full range of motion in all extremities. NEURO: Patient was alert and oriented to person place and time. CN II through XII grossly intact. SKIN: The skin was without rashes, erythema, edema, or bruising. Capillary r efill less than 2 seconds. Course Administered Medications Aspirin (Ecotrin Ectab) 81 mg PO DAILY CHARO Stop: 11/20/18 08:59 Last Admin: 10/21/18 10:40 Dose: 81 mg Documented by: [id number] Atorvastatin Calcium (Lipitor) 40 mg PO DAILY CHARO Stop: 11/20/18 08:59 Last Admin: 10/21/18 10:40 Dose: 40 mg Documented by: [id number] Clopidogrel Bisulfate (Plavix) 75 mg PO DAILY CHARO Stop: 11/20/18 08:59 Last Admin: 10/21/18 10:40 Dose: 75 mg Documented by: [id number] Famotidine (Pepcid) 20 mg PO DAILY CHARO Stop: 11/20/18 08:59 Last Admin: 10/21/18 10:40 Dose: 20 mg Documented by: [id number] Lisinopril (Zestril) 5 mg PO QAM CHARO Stop: 11/20/18 08:59 Last Admin: 10/21/18 10:40 Dose: 5 mg Documented by: [id number] Metoprolol Tartrate (Lopressor) 25 mg PO BID CHARO Stop: 11/20/18 08:59 Last Admin: 10/21/18 20:53 Dose: 25 mg Documented by: [id number] Admin: 10/21/18 14:45 Dose: 25 mg Documented by: [id number] Discontinued Medications Aspirin (Aspirin Chew) 324 mg PO NOW STA Stop: 10/21/18 05:19 Last Admin: 10/21/18 05:28 Dose: 324 mg Documented by: [id number] Eptifibatide (Integrilin (Manager Pediatric Use Only)) Confirm Administered Dose 40 mg .ROUTE .STK-MED ONE Stop: 10/21/18 08:16 Last Admin: 10/21/18 08:25 Dose: 29.4 mg Documented by: [id number] Eptifibatide (Integrilin (Manager Pediatric Use Only)) Confirm Administered Dose 75 mg .ROUTE .STK-MED ONE Stop: 10/21/18 08:16 Last Admin: 10/21/18 08:25 Dose: 75 mg Documented by: [id number] Eptifibatide (Integrilin Bolus/Drip) 1 ea IV NOW STA Stop: 10/21/18 08:39 Last Admin: 10/21/18 20:13 Dose: Not Given Documented by: [id number] Fentanyl Citrate (Fentanyl Citrate) Confirm Administered Dose 100 mcg .ROUTE .STK-MED ONE Stop: 10/21/18 06:29 Last Increment: 10/21/18 08:13 Dose: 75 mcg Documented by: [id number] Heparin Sodium (Porcine) (Heparin Iv Bolus (Manager Pediatric Use Only)) Confirm Administered Dose 10,000 units .ROUTE .STK-MED ONE Stop: 10/21/18 06:29 Last Admin: 10/21/18 08:14 Dose: 10,000 units Documented by: [id number] Heparin Sodium (Porcine) (Heparin Iv Bolus (Manager Pediatric Use Only)) Confirm Administered Dose 10,000 units .ROUTE .STK-MED ONE Stop: 10/21/18 07:51 Last Admin: 10/21/18 08:14 Dose: 10,000 units Documented by: [id number] Heparin Sodium/Sodium Chloride (Heparin/Nss 1000 Unit/500ml Flush Bag) Confirm Administered Dose 3,000 units IV .STK-MED ONE Stop: 10/21/18 06:29 Last Admin: 10/21/18 06:47 Dose: 3,000 units Documented by: [id number] Hydralazine HCl (Hydralazine Hcl) 10 mg IV NOW STA Stop: 10/21/18 05:44 Last Admin: 10/21/18 05:49 Dose: 10 mg Documented by: [id number] Sodium Chloride (Nss 1000ml) 1,000 mls @ 999 mls/hr IV .Q1H1M CHARO Stop: 10/21/18 06:30 Last Infusion: 10/21/18 06:27 Dose: 0 mls/hr Documented by: [id number] Admin: 10/21/18 05:28 Dose: 999 mls/hr Documented by: [id number] Sodium Chloride (Nss 1000ml) 1,000 mls @ 100 mls/hr IV .Q10H [facility] Stop: 10/21/18 09:31 Last Admin: 10/21/18 10:32 Dose: Not Given Documented by: [id number] Midazolam HCl (Versed) Confirm Administered Dose 2 mg .ROUTE .STK-MED ONE Stop: 10/21/18 06:29 Last Admin: 10/21/18 08:14 Dose: 2 mg Documented by: [id number] Midazolam HCl (Versed) Confirm Administered Dose 2 mg .ROUTE .STK-MED ONE Stop: 10/21/18 07:51 Last Increment: 10/21/18 08:14 Dose: 1 mg Documented by: [id number] Nicardipine HCl (Cardene) Confirm Administered Dose 25 mg .ROUTE .STK-MED ONE Stop: 10/21/18 06:29 Last Admin: 10/21/18 06:47 Dose: 25 mg Documented by: [id number] Nitroglycerin (Nitro-Bid 2%) 1 inch EXT NOW ONE Stop: 10/21/18 05:19 Last Admin: 10/21/18 05:28 Dose: 1 inch Documented by: [id number] Nitroglycerin/Dextrose (Nitroglycerin/D5w 100 Mcg/Ml 20ml Syringe) Confirm Administered Dose 2,000 mcg .ROUTE .STK-MED ONE Stop: 10/21/18 06:29 Last Admin: 10/21/18 06:47 Dose: 2,000 mcg Documented by: [id number] Medical Decision Making Differential Diagnosis Differential diagnosis includes, but is not limited to: Myocardial infarction, dysrhythmia, pericarditis, pneumothorax, aortic aneurysm/dissection, DVT/PE, anxiety, GERD, PUD, electrolyte imbalance, thyroid disorder, pneumonia, bronchitis, pancreatitis, and others Laboratory Data Result diagrams: 10/21/18 05:18 10/21/18 05:18 Lab Results 10/21/18 10/21/18 10/21/18 Range/Units 05:18 05:18 05:18 WBC 9.15 (4.8-10.8) K/uL RBC 4.72 (4.7-6.1) M/uL Hgb 15.9 (14.0-18.0) g/dL Hct 45.0 (42-52) % MCV 95.3 (80-100) fL MCH 33.7 (25-34) pg MCHC 35.3 (32-36) g/dL RDW Std Deviation 45.4 (36.4-46.3) fL RDW Coeff of Irma 13.1 (11.5-14.5) % Plt Count 209 (130-400) K/uL MPV 10.4 (7.4-10.4) fL Immature Gran % (Auto) 0.1 % Neut % (Auto) 43.8 % Lymph % (Auto) 44.9 % Hand % (Auto) 9.0 % Eos % (Auto) 2.0 % Baso % (Auto) 0.2 % Immature Gran # (Auto) 0.01 (0.00-0.02) K/uL Neut # (Auto) 4.01 (1.4-6.5) K/uL Lymph # (Auto) 4.11 H (1.2-3.4) K/uL Hand # (Auto) 0.82 H (0.11-0.59) K/uL Eos # (Auto) 0.18 (0-0.5) K/uL Baso # (Auto) 0.02 (0-0.2) K/uL PT 10.7 (9.0-12.0) Seconds INR 1.0 (0.9-1.1) APTT 22.2 (21.0-31.0) Seconds PTT Ratio 0.8 Sodium 142 (136-145) mmol/L Potassium 3.7 (3.5-5.1) mmol/L Chloride 108 H (98-107) mmol/L Carbon Dioxide 28 (21-32) mmol/L Anion Gap 6.0 (3-11) BUN 7 (7-18) mg/dl Creatinine 1.10 (0.6-1.4) mg/dl Est Cr Clr Drug Dosing 78.6 ml/min Est GFR ( Amer) 89.6 Est GFR (Non-Af Amer) 77.3 BUN/Creatinine Ratio 6.4 L (10-20) Glucose 118 H (70-99) mg/dl Calcium 9.1 (8.5-10.1) mg/dl Magnesium 2.3 (1.8-2.4) mg/dl Total Bilirubin 0.8 (0.2-1) mg/dl AST 35 (15-37) U/L ALT 33 (12-78) U/L Alkaline Phosphatase 63 (45-117) U/L POC Troponin I (0-0.045) ng/ml Troponin I < 0.015 (0-0.045) ng/ml Total Protein 7.5 (6.4-8.2) gm/dl Albumin 3.9 (3.4-5.0) gm/dl Globulin 3.6 (2.5-4.0) gm/dl Albumin/Globulin Ratio 1.1 (0.9-2) Triglycerides (0-150) mg/dl Cholesterol (0-200) mg/dl LDL Cholesterol, Calc mg/dl VLDL Cholesterol, Calc mg/dl HDL Cholesterol mg/dl Cholesterol/HDL Ratio Lipase 188 (73-393) U/L Urine Color Urine Appearance (Clear) Urine pH (4.5-7.5) Ur Specific Ledger (1.000-1.030) Urine Protein (Negative) Urine Glucose (UA) (Negative) Urine Ketones (Negative) Urine Blood (Negative) Urine Nitrite (Negative) Urine Bilirubin (Negative) Urine Urobilinogen (Negative) Ur Leukocyte Esterase (Negative) 10/21/18 10/21/18 10/21/18 Range/Units 05:18 05:42 06:33 WBC (4.8-10.8) K/uL RBC (4.7-6.1) M/uL Hgb (14.0-18.0) g/dL Hct (42-52) % MCV (80-100) fL MCH (25-34) pg MCHC (32-36) g/dL RDW Std Deviation (36.4-46.3) fL RDW Coeff of Irma (11.5-14.5) % Plt Count (130-400) K/uL MPV (7.4-10.4) fL Immature Gran % (Auto) % Neut % (Auto) % Lymph % (Auto) % Hand % (Auto) % Eos % (Auto) % Baso % (Auto) % Immature Gran # (Auto) (0.00-0.02) K/uL Neut # (Auto) (1.4-6.5) K/uL Lymph # (Auto) (1.2-3.4) K/uL Hand # (Auto) (0.11-0.59) K/uL Eos # (Auto) (0-0.5) K/uL Baso # (Auto) (0-0.2) K/uL PT (9.0-12.0) Seconds INR (0.9-1.1) APTT (21.0-31.0) Seconds PTT Ratio Sodium (136-145) mmol/L Potassium (3.5-5.1) mmol/L Chloride (98-107) mmol/L Carbon Dioxide (21-32) mmol/L Anion Gap (3-11) BUN (7-18) mg/dl Creatinine (0.6-1.4) mg/dl Est Cr Clr Drug Dosing ml/min Est GFR ( Amer) Est GFR (Non-Af Amer) BUN/Creatinine Ratio (10-20) Glucose (70-99) mg/dl Calcium (8.5-10.1) mg/dl Magnesium (1.8-2.4) mg/dl Total Bilirubin (0.2-1) mg/dl AST (15-37) U/L ALT (12-78) U/L Alkaline Phosphatase (45-117) U/L POC Troponin I < 0.03 (0-0.045) ng/ml Troponin I (0-0.045) ng/ml Total Protein (6.4-8.2) gm/dl Albumin (3.4-5.0) gm/dl Globulin (2.5-4.0) gm/dl Albumin/Globulin Ratio (0.9-2) Triglycerides 103 (0-150) mg/dl Cholesterol 169 (0-200) mg/dl LDL Cholesterol, Calc 60 mg/dl VLDL Cholesterol, Calc 21 mg/dl HDL Cholesterol 88 mg/dl Cholesterol/HDL Ratio 2 Lipase (73-393) U/L Urine Color Yellow Urine Appearance Clear (Clear) Urine pH 7.5 (4.5-7.5) Ur Specific Ledger 1.014 (1.000-1.030) Urine Protein Negative (Negative) Urine Glucose (UA) Negative (Negative) Urine Ketones Negative (Negative) Urine Blood Negative (Negative) Urine Nitrite Negative (Negative) Urine Bilirubin Negative (Negative) Urine Urobilinogen Negative (Negative) Ur Leukocyte Esterase Negative (Negative) ECG Data Additional Comments: Normal sinus rhythm @72 bpm Possible Left atrial enlargement Inferior infarct (cited on or before 18-JUN-2016) Abnormal ECG When compared with ECG of 30-JUN-2018 11:21, ST elevation now present in Anterior leads MDM Narrative Physical exam and history were performed. Nursing notes, EMR, and Medication List were personally reviewed. Patient appears to have vague chest discomfort bringing him to the emergency department. The patient does have a past cardiac history and was seen immediately upon his arrival to his room. IV access was established and labs were obtained. Initial EKG does not show distinct ST elevation to suggest STEMI, however it is slightly elevated in V3 and V4 when compared to old EKG from a few months ago. The patient was given aspirin and Nitropaste was applied. He was placed on the monitoring engineer. The case was discussed with my attending physician, Dr. Dowling, who also independently evaluated the patient and remained involved in care and decision-making. The patient's blood work is as above and was reviewed. He does not have a significantly elevated white blood cell count, gross anemia, bandemia, or significant electrolyte imbalance. Initial [id number] troponin is negative. EKGs were repeated roughly every 15 minutes, and appear stable. The patient c ontinued to have elevated blood pressure and was given [address] Dowling and I did discuss the case with the patient's housekeeping and laundry team leader, Dr. Steele. Initial plan is to lower the patient's blood pressure and continue to follow EKGs and repeat troponins. Heart alert is to be considered if repeat ekg is abnormal. EKG was repeated and is now consistent with STEMI. Heart alert was initiated. The patient remained in stable condition until transport to the catheterization lab. Please see the cardiology team dictation for further patient course, plan, disposition. The chart was completed utilizing [employer] Voice Recognition Software. Grammatical errors, random word insertions, pronoun errors, and incomplete sentences are an occasional consequence of this system due to software limitations, ambient noise, and hardware issues. Any formal questions or concerns about the content, text, or information contained within the body of this dictation should be directly addressed to the provider for clarification. . Impression & Plan Acute myocardial infarction Discharge Plan Visit Data *Final* Discharge Date/Time: 10/21/18 06:36 Chief Complaint: Hypertension Stated Complaint: RISING BLOOD PRESSURE-HX HEARTATTACK ED Provider: Viji Dowling ED Midlevel Provider: Jose Shabazz Discharge Problem: Acute myocardial infarction Patient Disposition: Admitted As Inpatient Discharge Instructions Interventions: ED Discharge Assessment Last Done: 10/21/18 06:36 Discharge Problem: Acute myocardial infarction Qualifiers: Myocardial infarction type: ST elevation myocardial infarction Involved coronary artery: unspecified coronary artery Qualified Code(s): I21.3 - ST elevation (STEMI) myocardial infarction of unspecified site
[2018-10-21 05:51] LABS: Partial Thromboplastin Ratio 0.8; Partial Thromboplastin Time 22.2 Seconds (21.0-31.0); Prothrombin Time 10.7 Seconds (9.0-12.0)
[2018-10-21 06:05] LABS: Alanine Aminotransferase 33 U/L (12-78); Albumin Level 3.9 gm/dl (3.4-5.0); Aspartate Aminotransferase 35 U/L (15-37); BUN Creatinine Ratio 6.4 (10-20); Blood Urea Nitrogen 7 mg/dl (7-18); Calcium 9.1 mg/dl (8.5-10.1); Carbon Dioxide 28 mmol/L (21-32); Chloride 108 mmol/L (98-107); Creatinine Clr Calc Pharmacy 78.6 ml/min; Est GFR (African American) 89.6; Est GFR (Non-African American) 77.3; Glucose 118 mg/dl (70-99); Magnesium 2.3 mg/dl (1.8-2.4); Potassium 3.7 mmol/L (3.5-5.1); Sodium 142 mmol/L (136-145)
[2018-10-21 06:10] LABS: Albumin Globulin Ratio 1.1 (0.9-2); Alkaline Phosphatase 63 U/L (45-117); Bilirubin,Total 0.8 mg/dl (0.2-1); Globulin 3.6 gm/dl (2.5-4.0); Total Protein 7.5 gm/dl (6.4-8.2); Troponin I < 0.015 ng/ml (0-0.045)
[2018-10-21] MEDS ORDERED: fentaNYL citrate 100 MCG/2 ML VIAL ONE (06:28)
[2018-10-21] MEDS ORDERED: NiCARDipine HCL INJ 2.5 MG/ML 10 ML AMP ONE (06:28)
[2018-10-21] MEDS ORDERED: HEPARIN (PORCINE) 1000 UNIT/ML 10 ML (CATH LAB USE ONLY) ONE ×2 (06:28→07:50)
[2018-10-21] MEDS ORDERED: NITROGLYCERIN/D5W 100MCG/ML 20ML SYR ONE (06:28)
[2018-10-21] MEDS ORDERED: MIDAZOLAM HCL 1 MG/ML 2ML VIAL ONE ×2 (06:28→07:50)
--- NOTE | 2018-10-21 06:39 | XRay Report ---
XR chest 1V portable HISTORY: 53 years-old Male chest pain acute atypical chest pain COMPARISON: Chest radiograph 06/30/2018 TECHNIQUE: Portable AP view of the chest FINDINGS: Cardiomediastinal and hilar silhouettes are within normal limits. No pneumothorax, pleural effusion, focal airspace consolidation or overt pulmonary edema. Degenerative changes of the shoulders and spin e. Mild sigmoidal thoracolumbar scoliosis. IMPRESSION: No acute process. The above report was generated using voice recognition software. It may contain grammatical, syntax o r spelling errors. Electronically signed by: Derrick Leon M.D. 10/21/2018 6:38 AM
[2018-10-21 06:43] LABS: Appearance Urine Clear (Clear); Bilirubin Urine Negative (Negative); Blood Urine Negative (Negative); Color Urine Yellow; Glucose Urine UA Negative (Negative); Ketones Urine Negative (Negative); Leukocyte Esterase Urine Negative (Negative); Nitrite Urine Negative (Negative); Protein Urine Negative (Negative); Specific Gravity Urine 1.014 (1.000-1.030); Urobilinogen Urine Negative (Negative); pH Urine 7.5 (4.5-7.5)
[2018-10-21] MEDS ORDERED: EPTIFIBATIDE 0.75 MG/ML 75MG VIAL (CATH LAB USE ONLY) ONE (08:15)
[2018-10-21] MEDS ORDERED: EPTIFIBATIDE 2 MG/ML 10 ML VIAL (CATH LAB USE ONLY) ONE (08:15)
[2018-10-21] MEDS ORDERED: ACETAMINOPHEN 325 MG TAB PO PRN ×2 (08:33→08:45)
[2018-10-21] MEDS ORDERED: EPTIFIBATIDE BOLUS/DRIP IV STA (08:38)
[2018-10-21] MEDS ORDERED: MAGNESIUM HYDROXIDE SUSP 30 ML UDC PO PRN (08:45)
[2018-10-21] MEDS ORDERED: POLYETHYLENE (MIRALAX) 17 GM PACK PO PRN (08:45)
[2018-10-21] MEDS ORDERED: ONDANSETRON INJ 2 MG/ML 2 ML VIAL IV PRN (08:45)
[2018-10-21] MEDS ORDERED: NITROGLYCERIN SL 0.4 MG/TAB TAB SL PRN (08:45)
[2018-10-21] MEDS ORDERED: ALUMINUM/MAGNESIUM SUSP 30 ML UDC PO PRN (08:45)
[2018-10-21 09:21] LABS: Chol HDL Ratio 2; Cholesterol 169 mg/dl (0-200); HDL Cholesterol 88 mg/dl; LDL Cholesterol Calculated 60 mg/dl; Triglycerides 103 mg/dl (0-150); VLDL Cholesterol 21 mg/dl
[2018-10-21] MEDS: CLOPIDOGREL BISULFATE 75 MG TAB PO SCH (10:40)
[2018-10-21] MEDS: ASPIRIN 81 MG ECTAB PO SCH (10:40)
[2018-10-21] MEDS: LISINOPRIL 5 MG TAB PO SCH (10:40)
[2018-10-21] MEDS: FAMOTIDINE 20 MG TAB PO SCH (10:40)
[2018-10-21] MEDS: METOPROLOL TARTRATE 25 MG TAB PO SCH ×3 (10:40→20:53)
[2018-10-21] MEDS: ATORVASTATIN 40 MG TAB PO SCH (10:40)
--- NOTE | 2018-10-21 10:58 | History & Physical Report ---
Date of Service October 21, 2018 Assessment & Plan (1) Chest pain: 53-year-old male with a past medical history of hypertension, STEMI status post RCA stents presents with acute chest discomfort STEMI Was found to have ST elevations in the anterior leads -RCA stenosis at the site of previous stent, good collateral circulation, no intervention at this time -Continue to trend troponin Plan is to optimize medical therapyatorvastatin 40 mg, clopidogrel 75 mg, lis inopril 5 mg, metoprolol 25 mg twice daily, aspirin Nitroglycerin for chest pain, EKG with chest pain Daily EKG Cardiology consult Echocardiogram ordered Hypertension Continue lisinopril. Adding metoprolol CODE STATUS Full code - Patient refuses blood transfusion per sabianist observation DVT prophylaxis Ambulation (2) Acute myocardial infarction: (3) Hypertension: History of Present Illness STEMI Primary Care Provider: Lashawn De La Cruz MD 53-year-old male with past medical history of hypertension, STEMI status post RCA branch stents presented to [facility] with acute chest discomfort. He states that the chest pain began around 4 AM this morning. The patient states that he was lying in bed when the pain started. He said he got up to go to the bathroom and he began to feel very diaphoretic, short of breath. The patient describes having 5 heart attacks in the past. He describes the symptoms as substernal discomfort radiated to his left arm. Patient states that he is compliant on atorvastatin, Plavix, aspirin and lisinopril. He does admit to wanting to eliminate preventive medications. He endorses a plant-based diet and regimented workout routine. Patient endorses a past medical history of smoking. He denies a family history of heart disease Allergies Allergy/AdvReac Type Severity Reaction Status Date / Time prasugrel Allergy Severe skin Unverified 06/30/18 11:56 blistering and peeling with burning and itching Home Medications Home Medications Medication Instructions Recorded Confirmed Type aspirin [Aspir-81] 81 mg PO DAILY 06/30/18 10/21/18 History atorvastatin 40 mg PO DAILY 06/30/18 10/21/18 History clopidogrel 75 mg PO DAILY 06/30/18 10/21/18 History famotidine 20 mg PO DAILY 06/30/18 10/21/18 History Past Med/Surg History Medical History Hypertension (Chronic) MA (myocardial infarction) (Resolved) STEMI (ST elevation myocardial infarction) (Resolved) Elevated troponin (Resolved) Social History Preferred Language: Setswana Communication Ability: Effective 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 Respiratory Required: No Beliefs That Will Affect Care: None Current Living Situation: Family Other Information That Helps Us Care for You: No Feels Safe at Home: Yes Smoking Status: Former smoker Do You Dip or Chew Tobacco: No Second Hand Exposure: Yes Tobacco Cessation Education Requested by Patient: No Hx Alcohol Use: Yes Alcohol type: wine Hx Substance Use: No Review of Systems Review of Systems: All systems reviewed & are unremarkable except as noted in HPI & below Physical Exam Constitutional: WD/WN, vitals as above Eyes: PERRL, conjunctivae normal, anicteric sclerae ENMT: external ear and nose normal, oropharynx normal Neck: trachea midline, no thyromegaly Respiratory: normal respiratory effort, lungs clear to auscultation Cardiovascular: RRR, no murmur, no edema Gastrointestinal (Abdomen): normal bowel sounds, soft, nontender, no hepatosplenomegaly Musculoskeletal: no cyanosis or clubbing, extremities motor strength 5/5 Skin: no rashes, warm and dry Neurologic: PERRL, EOMI, accommodation nl, no face palsy, no dysarthria Psychiatric: A+Ox3, euthymic affect Results & Data Vital Signs (Past 12 Hours) Vital Signs Temp Pulse Pulse Resp BP BP BP 10/21/18 09:19 65 10/21/18 09:18 36.6 C 60 16 136/94 10/21/18 06:31 82 19 194/109 H 10/21/18 06:15 74 16 164/109 H 10/21/18 06:00 74 14 155/107 H 10/21/18 05:45 64 13 172/118 H 10/21/18 05:43 63 14 164/112 H 10/21/18 05:37 70 22 148/112 H 10/21/18 05:12 68 15 163/115 H 10/21/18 05:06 37.1 C 70 16 187/130 H Pulse Ox 10/21/18 09:19 10/21/18 09:18 99 10/21/18 06:31 96 10/21/18 06:15 10/21/18 06:00 10/21/18 05:45 97 10/21/18 05:43 96 10/21/18 05:37 97 10/21/18 05:12 98 10/21/18 05:06 98 Diagnostic Findings FINDINGS: Left main is normal. Left circumflex, circumflex marginal, and posterolateral branches are free of significant disease. Left anterior descending artery is moderate to large in caliber with no significant stenosis present. This vessel fills a significant portion of the inferior wall around the apex. The right coronary artery is totally occluded in its mid portion. Light collateral filling of the posterolateral distribution is noted arising from the circumflex. Final cineangiograms demonstrate patent flow to the previously stented segments, and into the previously stented segment with continued total occlusion beyond the stented segment. IMPRESSION: Chronic total occlusion of the right coronary artery with early collateral filling noted. RECOMMENDATIONS: To continue medical therapy, have risk factors for myocardial infarction. Code Status & VTE Plan Code Status full Supervising Physician Co-Signing Physician Notes I personally examined the patient and verified all young points of history and exam, discussed case, and agree with decision making with Dr Merritt. Feeling better. Chest pain gone. Frustrated, as he notes that he is trying to do everything he can to improve his situation and still has heart attacks. Extensive discussion on cath findings, as well as the significant help that his lifestyle is done in growing collateral circulation, mitigating against damage, and overall improving his situation. Vitals noted, in general he is awake and alert pleasant no distress. HEENT normocephalic atraumatic mucous members moist. Breathing unlabored no accessory muscle use good effort. Skin shows no rashes no pallor or icterus. EKG/troponin noted. Coronary artery disease/elevated troponincertainly his presentation was consistent with an ST elevation MA, but is also quite possible given his rapid resolution, cath findings, and collateral circulation, and mild elevation of troponin thus far, but this is more consistent with a mild NSTEMI, or even s evere unstable angina, related to his in-stent stenosis of his initial RCA stent finally closing down. He was exercising excessively hard just yesterday (swim a mile, and after swimming a mile, doing sprints intermittent with jogging) having zero angina at the time. He then had angina at rest corroborated by an elevated troponin. This seems inconsistent. Given his in-stent stenosis now reaching 100% occlusion, and 2 years ago was 40%, it is quite possible that he has been growing collateral circulation given his impeccable lifestyle, med compliance, and heavy exercise, and that last night's event was simply related to a final shutdown of any residual flow in the RCA, and now he is working entirely on collaterals. We will discuss with interventional cardiology if there are any tertiary type techniques that may be of benefit for his RCA, but if his echo shows unchanged wall motion in the RCA circulation, and he is able to get back to exerting at his level, it seems that intervening would likely be of more risk than benefit. Strongly consider addition of a beta-sriram at least for the time being. Continue supportive care. Otherwise as above. Resident Activity Tracking Resident Involvement: Resident Care Provided Care Provided: Adult Hospital Medicine (1) Acute myocardial infarction Involved coronary artery: unspecified coronary artery Myocardial infarction type: ST elevation myocardial infarction Qualified Code(s): I21.3 - ST elevation (STEMI) myocardial infarction of unspecified site
--- NOTE | 2018-10-21 11:10 | Operative Report ---
DATE OF OPERATION: 10/21/2018 INDICATIONS: Chest pain, suspicious of angina, EKG suspicious of STEMI in a 53-year-old male with history of prior percutaneous coronary intervention being treated for hypercholesterolemia. PROCEDURE PERFORMED: Include coronary cineangiography, PTCA right coronary artery, radiological interpretation, and supervision. DESCRIPTION OF PROCEDURE: Upon arrival in the lift slab operator, the patient was prepped and draped in the usual sterile fashion. After local infiltration with lidocaine, a 6-Czech sheath was placed in the right femoral artery after 2 failed attempts at the right radial artery. A 6-Czech EBU 3.5 guiding catheter was advanced over wire under fluoroscopic guidance into the central circulation where it was aspirated and flushed. After confirmation of adequate waveforms, it was advanced into the left main. Cineangiograms of the left coronary artery were obtained and reviewed. The catheter was removed from the body over wire. The sheath was aspirated and flushed. A 6-Czech AR2 guiding catheter was advanced over wire under fluoroscopic guidance into the central circulation, where it was aspirated and flushed. After confirmation of adequate waveform, it was advanced into the right coronary artery. Cineangiograms of the right coronary artery was reviewed. A 0.014-inch Sales Outfitter wire was advanced through the guiding catheter into an area of total occlusion of the mid right coronary artery. A GuideLiner was advanced into position, a 2.0 MiniTrek 15 angioplasty catheter was advanced into the mid right coronary artery and multiple inflations were made throughout the mid to distal right coronary artery. AR/AL guiding catheter, repeated use of a GuideLiner, multiple wires including a Sales Outfitter 50, a Whisper wire, and a Mailman wire with multiple balloon inflations made in the distal right coronary artery. Multiple attempts to pass a wire into the true lumen of the posterior descending artery were unsuccessful. Final cineangiograms were obtained and the wire, GuideLiner, and guide were removed from the coronary artery. Guiding catheter removed from the right coronary artery under fluoroscopic guidance from the body over wire. The sheath was aspirated and flushed. An Angio-Seal was deployed over the right femoral artery with QuikClot applied and manual compression compelled adequate hemostasis. A pressure dressing was applied over the right radial artery. The patient returned to his room in good condition free of chest pain. COMPLICATIONS: None. FINDINGS: Left main is normal. Left circumflex, circumflex marginal, and posterolateral branches are free of significant disease. Left anterior descending artery is moderate to large in caliber with no significant stenosis present. This vessel fills a significant portion of the inferior wall around the apex. The right coronary artery is totally occluded in its mid portion. Light collateral filling of the posterolateral distribution is noted arising from the circumflex. Final cineangiograms demonstrate patent flow to the previously stented segments, and into the previously stented segment with continued total occlusion beyond the stented segment. IMPRESSION: Chronic total occlusion of the right coronary artery with early collateral filling noted. RECOMMENDATIONS: To continue medical therapy, have risk factors for myocardial infarction. I attest to the content of the Intraoperative Record and any orders documented therein. Any exception s are noted below.
--- NOTE | 2018-10-21 16:53 | Cardiology Consultation ---
Date of Consultation October 21, 2018 Assessment & Plan (1) Acute coronary syndromes: The patient presented with his typical symptoms and demonstrated ST elevation in the anterior leads. Cardiac catheterization noted a left coronary tree to be intact without obstructive disease. The distal right coronary artery was the culprit vessel, however, could not be intervened upon. We will continue with medical management. (2) CAD (coronary artery disease): Extensive cardiac history as outlined above. (3) Hypertension: Adequate control on current regimen. (4) Hypercholesterolemia: Would continue high-intensity statin. History of Present Illness Attending Physician: Chaitanya Steele MD History of Present Illness Mr. Bustamante is a 53-year-old male admitted earlier today with an acute coronary syndrome. This consultation was ordered to assist in his management. Of note, the patient is well known to me from the inpatient and outpatient settings. The patient was in his usual state of health until approximately 430 this morning. He began to notice a hollow feeling in his mid chest which radiated towards the left shoulder. This duplicated his symptoms from a prior myocardial infarction and therefore, he presented to the emergency room for further care. His EKGs did note some anterior ST elevation suggesting an injury current. I was contacted by phone at 5:53 a.m. with the above story. I suggested that a heart alert be activated. The patient was taken to the cardiac catheterization lab by Dr. Marino. The patient's left system showed no obstructive disease. Proximal right coronary artery stent was patent, however, there was sluggish flow distally. Unfortunately, he had a difficult time passing a wire distally and therefore, did no intervention. He was placed on Integrilin, however, the patient had significant bleeding from his right groin site and therefore, his anticoagulant was discontinued. The patient's cardiac history began in 2012 when he had a bare metal stent placed in the proximal to mid RCA, and had drug-eluting stent placed in the distal RCA well living in [facility]. He presented to our institution February 2015 with a mid LAD [facility] AMBIKA which required aspiration thrombectomy witho ut further intervention. In May 2016, he presented with an NSTEMI requiring 2 drug-eluting stents in the distal RCA. He had a subacute stent thrombosis which required an additional overlapping BENITEZ to the distal RCA on that same day in May 2016. 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 He claims to be compliant with his medications. Currently, patient is resting comfortably in bed without complaints. Results of his cardiac catheterization reviewed in detail. Past medical surgical history 1. Coronary artery disease-see above 2. Hypertension 3. Hypercholesterolemia 4. GERD Social history , lives with his daughter No tobacco Occasional alcohol Family history No early coronary artery disease Review of systems A 10 point review of systems was undertaken and negative except for that described above. Allergies Allergy/AdvReac Type Severity Reaction Status Date / Time prasugrel Allergy Severe skin Unverified 06/30/18 11:56 blistering and peeling with burning and itching Home Medications Home Medications Medication Instructions Recorded Confirmed Type aspirin [Aspir-81] 81 mg PO DAILY 06/30/18 10/21/18 History atorvastatin 40 mg PO DAILY 06/30/18 10/21/18 History clopidogrel 75 mg PO DAILY 06/30/18 10/21/18 History famotidine 20 mg PO DAILY 06/30/18 10/21/18 History Patient History Medical History Hypertension (Chronic) HI (myocardial infarction) (Resolved) STEMI (ST elevation myocardial infarction) (Resolved) Elevated troponin (Resolved) Social History Preferred Language: Emirati Communication Ability: Effective 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 HEENT exam is negative. Neck is supple with full carotid upstrokes. There are no carotid bruits. Jugular venous pressure is flat at 90. There is no thyromegaly. Cardiovascular exam reveals a regular rhythm with a normal S1 and S2. No S3, S4, or murmurs are noted. Lungs are clear without rales, rhonchi, or wheezes. Abdomen is soft and nontender without bruits. Extremities reveal intact radial artery and posterior tibial pulses bilaterally. Right groin notes an intact dressing There is no peripheral edema. Results & Data Vital Signs (Past 12 Hours) Vital Signs Temp Pulse Pulse Pulse Resp BP BP 10/21/18 15:53 150/97 H 10/21/18 15:28 60 10/21/18 15:20 36.7 C 56 L 20 176/104 H 10/21/18 14:00 63 18 158/109 H 10/21/18 13:00 73 18 156/97 H 10/21/18 12:00 36.8 C 70 16 150/97 H 10/21/18 11:00 67 18 154/100 H 10/21/18 10:30 67 16 152/96 H 10/21/18 10:00 63 16 151/96 H 10/21/18 09:45 65 16 144/94 H 10/21/18 09:30 64 18 136/94 10/21/18 09:19 65 10/21/18 09:18 36.6 C 60 16 136/94 10/21/18 06:31 82 19 10/21/18 06:15 74 16 10/21/18 06:00 74 14 10/21/18 05:45 64 13 172/118 H 10/21/18 05:43 63 14 10/21/18 05:37 70 22 148/112 H 10/21/18 05:12 68 15 163/115 H 10/21/18 05:06 37.1 C 70 16 187/130 H BP Pulse Ox 10/21/18 15:53 10/21/18 15:28 10/21/18 15:20 99 10/21/18 14:00 100 10/21/18 13:00 100 10/21/18 12:00 100 10/21/18 11:00 99 10/21/18 10:30 100 10/21/18 10:00 99 10/21/18 09:45 99 10/21/18 09:30 99 10/21/18 09:19 10/21/18 09:18 99 10/21/18 06:31 194/109 H 96 10/21/18 06:15 164/109 H 10/21/18 06:00 155/107 H 10/21/18 05:45 97 10/21/18 05:43 164/112 H 96 10/21/18 05:37 97 10/21/18 05:12 98 10/21/18 05:06 98 Laboratory Results Laboratory Results - last 24 hr 10/21/18 10/21/18 10/21/18 05:18 05:18 05:18 WBC 9.15 RBC 4.72 Hgb 15.9 Hct 45.0 MCV 95.3 MCH 33.7 MCHC 35.3 RDW Std Deviation 45.4 RDW Coeff of Irma 13.1 Plt Count 209 MPV 10.4 Immature Gran % (Auto) 0.1 Neut % (Auto) 43.8 Lymph % (Auto) 44.9 [place] % (Auto) 9.0 Eos % (Auto) 2.0 Baso % (Auto) 0.2 Immature Gran # (Auto) 0.01 Neut # (Auto) 4.01 Lymph # (Auto) 4.11 H [place] # (Auto) 0.82 H Eos # (Auto) 0.18 Baso # (Auto) 0.02 PT 10.7 INR 1.0 APTT 22.2 PTT Ratio 0.8 Activ Coag Time Kaolin Sodium 142 Potassium 3.7 Chloride 108 H Carbon Dioxide 28 Anion Gap 6.0 BUN 7 Creatinine 1.10 Est Cr Clr Drug Dosing 78.6 Est GFR ( Amer) 89.6 Est GFR (Non-Af Amer) 77.3 BUN/Creatinine Ratio 6.4 L Glucose 118 H Calcium 9.1 Magnesium 2.3 Total Bilirubin 0.8 AST 35 ALT 33 Alkaline Phosphatase 63 POC Troponin I Troponin I < 0.015 Total Protein 7.5 Albumin 3.9 Globulin 3.6 Albumin/Globulin Ratio 1.1 Triglycerides Cholesterol LDL Cholesterol, Calc VLDL Cholesterol, Calc HDL Cholesterol Cholesterol/HDL Ratio Lipase 188 Urine Color Urine Appearance Urine pH Ur Specific [place] Urine Protein Urine Glucose (UA) Urine Ketones Urine Blood Urine Nitrite Urine Bilirubin Urine Urobilinogen Ur Leukocyte Esterase 10/21/18 10/21/18 10/21/18 05:18 05:42 06:33 WBC RBC Hgb Hct MCV MCH MCHC RDW Std Deviation RDW Coeff of Irma Plt Count MPV Immature Gran % (Auto) Neut % (Auto) Lymph % (Auto) [place] % (Auto) Eos % (Auto) Baso % (Auto) Immature Gran # (Auto) Neut # (Auto) Lymph # (Auto) [place] # (Auto) Eos # (Auto) Baso # (Auto) PT INR APTT PTT Ratio Activ Coag Time Kaolin Sodium Potassium Chloride Carbon Dioxide Anion Gap BUN Creatinine Est Cr Clr Drug Dosing Est GFR ( Amer) Est GFR (Non-Af Amer) BUN/Creatinine Ratio Glucose Calcium Magnesium Total Bilirubin AST ALT Alkaline Phosphatase POC Troponin I < 0.03 Troponin I Total Protein Albumin Globulin Albumin/Globulin Ratio Triglycerides 103 Cholesterol 169 LDL Cholesterol, Calc 60 VLDL Cholesterol, Calc 21 HDL Cholesterol 88 Cholesterol/HDL Ratio 2 Lipase Urine Color Yellow Urine Appearance Clear Urine pH 7.5 Ur Specific [place] 1.014 Urine Protein Negative Urine Glucose (UA) Negative Urine Ketones Negative Urine Blood Negative Urine Nitrite Negative Urine Bilirubin Negative Urine Urobilinogen Negative Ur Leukocyte Esterase Negative 10/21/18 10/21/18 10/21/18 07:10 07:23 07:51 WBC RBC Hgb Hct MCV MCH MCHC RDW Std Deviation RDW Coeff of Irma Plt Count MPV Immature Gran % (Auto) Neut % (Auto) Lymph % (Auto) [place] % (Auto) Eos % (Auto) Baso % (Auto) Immature Gran # (Auto) Neut # (Auto) Lymph # (Auto) [place] # (Auto) Eos # (Auto) Baso # (Auto) PT INR APTT PTT Ratio Activ Coag Time Kaolin 186 H 279 H 202 H Sodium Potassium Chloride Carbon Dioxide Anion Gap BUN Creatinine Est Cr Clr Drug Dosing Est GFR ( Amer) Est GFR (Non-Af Amer) BUN/Creatinine Ratio Glucose Calcium Magnesium Total Bilirubin AST ALT Alkaline Phosphatase POC Troponin I Troponin I Total Protein Albumin Globulin Albumin/Globulin Ratio Triglycerides Cholesterol LDL Cholesterol, Calc VLDL Cholesterol, Calc HDL Cholesterol Cholesterol/HDL Ratio Lipase Urine Color Urine Appearance Urine pH Ur Specific [place] Urine Protein Urine Glucose (UA) Urine Ketones Urine Blood Urine Nitrite Urine Bilirubin Urine Urobilinogen Ur Leukocyte Esterase 10/21/18 15:04 WBC RBC Hgb Hct MCV MCH MCHC RDW Std Deviation RDW Coeff of Irma Plt Count MPV Immature Gran % (Auto) Neut % (Auto) Lymph % (Auto) [place] % (Auto) Eos % (Auto) Baso % (Auto) Immature Gran # (Auto) Neut # (Auto) Lymph # (Auto) [place] # (Auto) Eos # (Auto) Baso # (Auto) PT INR APTT PTT Ratio Activ Coag Time Kaolin Sodium Potassium Chloride Carbon Dioxide Anion Gap BUN Creatinine Est Cr Clr Drug Dosing Est GFR ( Amer) Est GFR (Non-Af Amer) BUN/Creatinine Ratio Glucose Calcium Magnesium Total Bilirubin AST ALT Alkaline Phosphatase POC Troponin I Troponin I 3.590 H* Total Protein Albumin Globulin Albumin/Globulin Ratio Triglycerides Cholesterol LDL Cholesterol, Calc VLDL Cholesterol, Calc HDL Cholesterol Cholesterol/HDL Ratio Lipase Urine Color Urine Appearance Urine pH Ur Specific [place] Urine Protein Urine Glucose (UA) Urine Ketones Urine Blood Urine Nitrite Urine Bilirubin Urine Urobilinogen Ur Leukocyte Esterase Diagnostic Findings EKG on presentation notes sinus rhythm an anterior injury pattern. An old inferior HI pattern cannot be excluded.
--- NOTE | 2018-10-22 08:20 | Family Medicine Progress Note ---
Date of Service October 22, 2018 Assessment & Plan (1) Chest pain: 53-year-old male with a past medical history of hypertension, STEMI status post RCA stents presents with acute chest discomfort STEMI vs subendocardial ischemia in the setting of HTN urgency Was found to have ST elevations in the anterior leads, troponin peaked at 7.72 -RCA stenosis at the site of previous stent, good collateral circulation, no intervention at this time Optimize medical therapyatorvastatin 40 mg, clopidogrel 75 mg, lisinopril 5 mg, metoprolol succinate 25mg HS, aspirin Echocardiogram showed "normal left ventricular systolic function with a proximal inferior wall motion abnormality. This is unchanged from a study done on June 08, 2016." Nitroglycerin for chest pain, EKG with chest pain Daily EKG Cardiology consult, appreciate recommendation Hypertension Continue lisinopril, metoprolol succinate 25 mg HS CODE STATUS Full code - Patient refuses blood transfusion per amish observation DVT prophylaxis Ambulation (2) Acute myocardial infarction: (3) Hypertension: Supervising Physician Co-Signing Physician Notes I personally examined the patient and verified all young points of history and exam, discussed case, and agree with decision making with Dr Merritt. feeling good. no further chest pain. extensive discussions on meds/lifestyle/exercise/options/etc Vitals noted, in general he is awake and alert pleasant no distress. HEENT normocephalic atraumatic mucous members moist. Breathing unlabored no accessory muscle use good effort. Skin shows no rashes no pallor or icterus. troponin trending down, echo unchanged. Coronary artery disease/elevated troponincertainly his presentation was consistent with an ST elevation [place], but is also quite possible given his rapid resolution, cath findings, and collateral circulation, and mild elevation of troponin thus far, but this is more consistent with a mild NSTEMI, or even severe unstable angina, related to his in-stent stenosis of his initial RCA stent finally closing down. He was exercising excessively hard the day before admission (swam a mile, and after swimming a mile, doing sprints intermittent with jogging) having zero angina at the time. He then had angina at rest corroborated by an elevated troponin. This seems inconsistent. Given his in- stent stenosis now reaching 100% occlusion, and 2 years ago was 40%, it is quite possible that he has been growing collateral circulation given his impeccable lifestyle, med compliance, and heavy exercise, and that last night's event was simply related to a final shutdown of any residual flow in the RCA, and now he is working entirely on collaterals. Alternatively it could be hypertensive induced. continue beta sriram. hopefully home tomorrow. Subjective The patient is feeling better today. He denies chest pain, palpitations and was able to ambulate without problems this afternoon. Review of Systems Review of Systems: All systems reviewed & are unremarkable except as noted in HPI & below Physical Exam Constitutional: WD/WN, vitals as above Eyes: PERRL, conjunctivae normal, anicteric sclerae ENMT: external ear and nose normal, oropharynx normal Neck: trachea midline, no thyromegaly Respiratory: normal respiratory effort, lungs clear to auscultation Cardiovascular: RRR, no murmur, no edema Gastrointestinal (Abdomen): normal bowel sounds, soft, nontender, no hepatosplenomegaly Musculoskeletal: no cyanosis or clubbing, extremities motor strength 5/5 Skin: no rashes, warm and dry Neurologic: PERRL, EOMI, accommodation nl, no face palsy, no dysarthria Psychiatric: A+Ox3, euthymic affect Results & Data Vital Signs (Past 12 Hours) Vital Signs Temp Pulse Resp BP Pulse Ox 10/22/18 07:05 37.5 C 64 18 110/69 98 10/22/18 03:52 37.1 C 55 L 22 119/75 99 10/21/18 22:57 36.8 C 56 L 20 126/79 98 Resident Activity Tracking Resident Involvement: Resident Care Provided Care Provided: Adult Hospital Medicine (1) Acute myocardial infarction Involved coronary artery: unspecified coronary artery Myocardial infarction type: ST elevation myocardial infarction Qualified Code(s): I21.3 - ST elevation (STEMI) myocardial infarction of unspecified site
[2018-10-22 08:44] LABS: BUN Creatinine Ratio 6.7 (10-20); Calcium 8.6 mg/dl (8.5-10.1); Creatinine Clr Calc Pharmacy 90.8 ml/min; Est GFR (Non-African American) 92.3
[2018-10-22 08:56] LABS: Troponin I 7.72 ng/ml (0-0.045)
[2018-10-22] MEDS: FAMOTIDINE 20 MG TAB PO SCH (08:56)
[2018-10-22] MEDS: ATORVASTATIN 40 MG TAB PO SCH (08:56)
[2018-10-22] MEDS: CLOPIDOGREL BISULFATE 75 MG TAB PO SCH (08:56)
[2018-10-22] MEDS: LISINOPRIL 5 MG TAB PO SCH (08:56)
[2018-10-22] MEDS: ASPIRIN 81 MG ECTAB PO SCH (08:56)
[2018-10-22] MEDS: METOPROLOL TARTRATE 25 MG TAB PO SCH (09:43)
--- NOTE | 2018-10-22 10:39 | Cardiology Progress Note ---
Date of Service October 22, 2018 Assessment & Plan (1) Acute coronary syndromes: Uncertain if his presentation was truly an acute coronary syndrome or subendocardial ischemia from his accelerated hypertension (187/130 at presentation). Troponin I level now up to 7.72. Cardiac catheterization films reviewed with Dr. Wyatt. It appears that he has a total occlusion, likely chronic, just distal to the last stent in his RCA. The vessel is collateralized distally. The left system is without significant disease. Echocardiogram notes normal left ventricular systolic function with a proximal inferior wall motion abnormality. This is unchanged from a study done on June 08, 2016. Would c ontinue metoprolol tartrate, lisinopril, atorvastatin, Plavix, and aspirin. (2) CAD (coronary artery disease): Extensive history as described in the consultation note. (3) Hypertension: Adequate control currently. Blood pressure was quite elevated at time of presentation. Does have moderate left hypertrophy on his echocardiogram. (4) Hypercholesterolemia: Would continue high-intensity statin. Subjective The patient is resting comfortably in the bedside chair complaints of chest pain or dyspnea. Has been ambulatory without difficulty. Physical Exam Physical Exam: In general this is a well-developed well-nourished black male in no acute distress. HEENT exam is negative. Neck is supple with full carotid upstrokes. There are no carotid bruits. Jugular venous pressure is flat at 90. There is no thyromegaly. Cardiovascular exam reveals a regular rhythm with a normal S1 and S2. No S3, S4, or murmurs are noted. Lungs are clear without rales, rhonchi, or wheezes. Abdomen is soft and nontender without bruits. Extremities reveal intact radial artery and posterior tibial pulses bilaterally. Right groin notes an intact dressing There is no peripheral edema. Results & Data Vital Signs (Past 12 Hours) Vital Signs Temp Pulse Resp BP Pulse Ox 10/22/18 07:05 37.5 C 64 18 110/69 98 10/22/18 03:52 37.1 C 55 L 22 119/75 99 10/21/18 22:57 36.8 C 56 L 20 126/79 98 Laboratory Results Troponin I level is up to 7.72 this morning. Diagnostic Findings ekg monitor noted a 14 beat run of ventricular tachycardia yesterday. Echocardiogram notes normal left ventricular systolic function with a small akinetic segment involving the inferior base. There is moderate left ventricle hypertrophy and mild tricuspid regurgitation.
[2018-10-22] MEDS ORDERED: METOPROLOL SUCC 25MG EXT REL TAB PO SCH (21:00)
[2018-10-23] MEDS: ATORVASTATIN 40 MG TAB PO SCH (07:53)
[2018-10-23] MEDS: CLOPIDOGREL BISULFATE 75 MG TAB PO SCH (07:54)
[2018-10-23] MEDS: FAMOTIDINE 20 MG TAB PO SCH (07:54)
[2018-10-23] MEDS: ASPIRIN 81 MG ECTAB PO SCH (07:54)
[2018-10-23] MEDS: LISINOPRIL 5 MG TAB PO SCH (07:54)
--- NOTE | 2018-10-23 08:26 | Discharge Summary ---
Date of Service October 23, 2018 Admission HPI Per Admitting Provider 53-year-old male with past medical history of hypertension, STEMI status post RCA branch stents presented to [facility] with acute chest discomfort. He states that the chest pain began around 4 AM this morning. The patient states that he was lying in bed when the pain started. He said he got up to go to the bathroom and he began to feel very diaphoretic, short of breath. The patient describes having 5 heart attacks in the past. He describes the symptoms as substernal discomfort radiated to his left arm. Patient states that he is compliant on atorvastatin, Plavix, aspirin and lisinopril. He does admit to wanting to eliminate preventive medications. He endorses a plant-based diet and regimented workout routine. Patient endorses a past medical history of smoking. He denies a family history of heart disease Principal Diagnosis elevated troponin (see A/P discussion) Discharge Exam General Appearance: WD/WN, no apparent distress Eyes: normal inspection, EOMI, sclerae normal ENT: normal ENT inspection, hearing grossly normal, pharynx normal Neck: supple, no adenopathy, no JVD, trachea midline Respiratory/Chest: chest non-tender, lungs clear, normal breath sounds, no respiratory distress, no accessory muscle use Cardiovascular: regular rate, rhythm, no edema, no gallop, no JVD, no murmur, normal peripheral pulses Abdomen / GI: normal bowel sounds, non tender, soft, no organomegaly Extremities: normal inspection, no calf tenderness, normal capillary refill, no pedal edema, normal range of motion Neurologic/Psychiatric: no gross motor/sensory deficits, alert, normal mood/affect, oriented x 3 Skin: normal color, warm/dry, no rash Discharge Data Allergies Allergy/AdvReac Type Severity Reaction Status Date / Time prasugrel Allergy Severe skin Unverified 06/30/18 11:56 blistering and peeling with burning and itching Consultations 10/21/18 07:10 Consult Machine Folder Routine 10/21/18 10:10 Consult Cardiology Routine Procedures Performed Operation Date: 10/21/18 06:25 Actual Procedures p Aspiration/PCI w/BMS for Stemi - Andrea Wyatt MD s Cineradiography w/Routine Exam - Andrea Wyatt MD s Cath, Coronaries ONLY (no LV) - Andrea Wyatt MD Ordered Studies 10/21/18 06:26 CL Cath Imgs for PACS use only Stat Hospital Course (1) Chest pain: 53-year-old male with a past medical history of hypertension, STEMI status post RCA stents presents with acute chest discomfort STEMI vs subendocardial ischemia in the setting of HTN urgency Was found to have ST elevations in the anterior leads, troponin peaked at 7.72 Cath revealed RCA stenosis at the site of previous stent, good collateral circulation, no intervention performed Echocardiogram showed "normal left ventricular systolic function with a proximal inferior wall motion abnormality. This is unchanged from a study done on June 08, 2016." - Cardiology recommends optimize medical therapy ASA, clopidogrel, atorvastatin 40 mg, lisinopril 5 mg, and initiated metoprolol succinate 25mg HS. Nitroglycerin PRN chest pain - Otherwise continue current healthy lifestyle measures (of note patient declined cardiac rehab) Hypertension - Continue lisinopril, metoprolol succinate 25 mg HS CODE STATUS - Full code - Patient refuses blood transfusion per lutheran observation (2) Acute myocardial infarction: (3) Hypertension: Total Time Total Time Spent Total Time Spent (In Minutes): >30 Discharge Plan Discharge Items Patient Disposition: Home - Self-Care Reason For Visit: HEART ALERT-PCI Discharge Diagnosis: Acute coronary syndrome - heart attack Condition: Good Discharge Goals: Improve disease control and Prevent disease Activity: Resume your previous activity Non-emergency contact: Primary Care Provider and Poiser Call non-emergency contact if: you have any medication questions and your symptoms worsen Follow-up/Referrals: Lashawn De La Cruz MD [Primary Care Provider] - 11/04/18 9:10 am Diet: Heart Healthy Addtl Provider Instructions: You have had ischemic damage to a small portion of your heart, although the rest of your heart appears otherwise well. Continue aspirin 81mg daily, clopidogrel 75mg daily, lisinopril 5mg daily, and atorvastatin 40mg daily. Metoprolol 25mg nightly is a new medication that is adding to help reduce cardiac muscle demand by preventing it from racing. It also can impact blood pressure. We believe it will confer some preventative advantage, but let your apprentice lineman third step or PCP know if you experience side effects such as palpitations, lightheadedness, dizzy, especially upon standing from sitting, or if you note any other changes or if you have any other concerns. Remember, compliance is young and talk to your apprentice lineman third step prior to making any med changes. Nitroglycerin tablets are prescribed to take in the urgent situation if you ever have chest pain. It dilates the blood vessels to immediately, but temporarily, reduce strain on the heart. If you are finding that you are requiring this frequently, or if symptoms do not improve with this medication, you need to seek medical care urgently. Continue your healthy diet and exercise lifestyles as you are doing, returning to your full baseline level of exertion gradually. Follow up with your PCP is arranged for 2 weeks from now, as above. Follow up with cardiology is recommended in 2-4 weeks, please call there office if you are not called with an appointment time in the next week. Prescriptions: New lisinopril 5 mg tablet 5 mg PO DAILY Qty: 30 RF: 0 metoprolol succinate 25 mg Tablet Extended Release 24 Hr 25 mg PO HS Qty: 30 RF: 0 nitroglycerin [Nitrostat] 0.4 mg Tablet, Sublingual 0.4 mg sublingual UD PRN (Reason: chest pain) Qty: 30 RF: 0 Continued atorvastatin 40 mg tablet 40 mg PO DAILY RF: 0 clopidogrel 75 mg tablet 75 mg PO DAILY RF: 0 aspirin [Aspir-81] 81 mg Tablet,Delayed Release (Dr/Ec) 81 mg PO DAILY RF: 0 Discontinued famotidine 20 mg tablet 20 mg PO DAILY RF: 0 Stand-Alone Forms: Count Includes [facility] Discharge Orders: Discharge Order (Routine); Ordered 10/23/18 Ordered By: Lashawn De La Cruz Admission Data Admit Date/Time: 10/21/18 07:09 Attending Provider: Chaitanya Steele Admit Provider: Iain Marino Primary Care Provider: Lashawn De La Cruz Other Providers: Chaitanya Steele Service: Intensive Care Unit Other Interventions: Discharge Summary Assessment (RN) Last Done: 10/23/18 11:35 DC Date/Time DO NOT enter until pt leaves facility: 10/23/18 14:00 Supervising Physician Co-Signing Physician Notes I personally examined the patient and verified all young points of history and exam, discussed case, and agree with decision making with Dr De La Cruz. feeling good. no further chest pain. ambulating OK re addressed extensive discussions on meds/lifestyle/exercise/options/etc Vitals noted, in general he is awake and alert pleasant no distress. HEENT normocephalic atraumatic mucous members moist. Breathing unlabored no accessory muscle use good effort. Skin shows no rashes no pallor or icterus. Coronary artery disease/elevated troponincertainly his initial presentation was consistent with an ST elevation [place], but is also quite possible given his rapid resolution, cath findings, and collateral circulation, and mild elevation of troponin thus far, but this is more consistent with a mild NSTEMI, or even severe unstable angina, related to his in-stent stenosis of his initial RCA stent finally closing down. It is also possible to have been simply subendocardial ischemia from a hypertensive urgency. He was exercising excessively hard the day before admission (swam a mile, and after swimming a mile, doing sprints intermittent with jogging) having zero angina at the time. He then had angina at rest corroborated by an elevated troponin. This seems inconsistent. Given his in-stent stenosis now reaching 100% occlusion, and 2 years ago was 40%, it is quite possible that he has been growing collateral circulation given his impeccable lifestyle, med compliance, and heavy exercise, and that last night's event was simply related to a final shutdown of any residual flow in the RCA, and now he is working entirely on collaterals. Alternatively it could be hypertensive induced, as above noted continue beta sriram, ACEi, graduated return to lifestyle/graduated increase in exercise. if he hits a plateau of exercise tolerance short of his baseline, then considerations for measures to accelerate collateral growth or (less promis ingly) try to open RCA circulation could be entertained. stable for home Resident Activity Tracking Resident Involvement: Resident Care Provided Care Provided: Adult Hospital Medicine
--- NOTE | 2018-10-23 12:56 | Cardiology Progress Note ---
Date of Service October 23, 2018 Assessment & Plan (1) Acute coronary syndromes: Uncertain if his presentation was truly an acute coronary syndrome or subendocardial ischemia from his accelerated hypertension at presentation. Would convert short-acting to long-acting metoprolol succinate at 25 mg daily. Continue lisinopril, atorvastatin, aspirin, and Plavix. Stable from stable discharge. (2) CAD (coronary artery disease): Extensive history as described in the consultation note. (3) Hypertension: Adequate control current medications. Does have moderate left hypertrophy on his echocardiogram. (4) Hypercholesterolemia: Would continue high-intensity statin. Subjective The patient is resting comfortably in bed without complaints of chest pain or dyspnea. Was ambulatory yesterday without difficulty. He is anxious for hospital discharge. Physical Exam Physical Exam: In general this is a well-developed well-nourished black male in no acute distress. HEENT exam is negative. Neck is supple with full carotid upstrokes. There are no carotid bruits. Jugular venous pressure is flat at 90. There is no thyromegaly. Cardiovascular exam reveals a regular rhythm with a normal S1 and S2. No S3, S4, or murmurs are noted. Lungs are clear without rales, rhonchi, or wheezes. Abdomen is soft and nontender without bruits. Extremities reveal intact radial artery and posterior tibial pulses bilaterally. Right groin notes an intact dressing There is no peripheral edema. Results & Data Vital Signs (Past 12 Hours) Vital Signs Temp Pulse Pulse Resp BP BP Pulse Ox 10/23/18 11:35 37.3 C 63 58 L 18 112/71 114/72 100 10/23/18 07:15 37.3 C 58 L 18 112/71 100 10/23/18 03:16 37.4 C 56 L 18 113/68 98 Diagnostic Findings residential monitor is benign.
== END 2018-10-23 14:00 | disposition home or self-care (01) | DRG 251 ==
LOC: ED 05:02 → CC 06:36 → 1E 07:09 → 2S 09:18
PROC: CLB.CCO (2018-10-21 06:25)